=== PATIENT | female | born 1955 | race Caucasian/White ===

== ENCOUNTER → 2016-10-05 | Outpatient (CLI) | payer OTHER ==
--- NOTE | 2016-10-05 13:34 | KCIC ---
EXAM: Bilateral digital screening mammogram. HISTORY: 60-year-old female presents for screening mammography. COMPARISON: 09/29/2015 and 09/26/2014 11 TECHNIQUE: Full field digital craniocaudal and mediolateral oblique views of both breasts are obtained. Computer-aided detection is applied. FINDINGS: Breast parenchymal composition: Level B - Scattered fibroglandular densities. There is no new suspicious mass, calcification or architectural distortion within either breast. There are stable nodular densities within both breasts. There are few benign calcifications. IMPRESSION: BI-RADS Category 2: Benign findings. Annual mammography is recommended. This study was interpreted with the benefit of Computerized Aided Detection (CAD). Mammography is not 100% sensitive in detecting breast cancer. Therefore, a self breast exam and a clinical breast exam are very important. A negative mammogram does not negate a clinically suspicious finding and should not result in a delay in biopsying a clinically suspicious abnormality. The patient information was entered into the reminder system with a target for her next mammogram. Electronically signed by: Ariella Zimmer (Oct 05, 2016 13:31:28)
== END | disposition home or self-care (01) ==
LOC: KCIC MAMMO 12:25
PROVIDERS: ATTEND Internal Medicine
DX: Z12.31 Encounter for screening mammogram for malignant neoplasm of breast (principal)
CPT/HCPCS: G0202; 77067

== ENCOUNTER 2017-02-20 05:39 | Inpatient (IN) | payer OTHER ==
[2017-02-20] VITALS (13 sets, daily range): BP systolic 89–163; BP diastolic 24–75
[~2017-02-20] VITALS: Ht 157.5 cm; Wt 74.8 kg
[2017-02-20 06:41] LABS: BASO % 0 % (0-3); EOS % 0 % (0-3); HEMATOCRIT 41.2 % (36.0-47.0); HEMOGLOBIN 14.4 g/dL (12.0-15.5); LYMPH # 1.2 x10^3/uL (1.0-4.8); LYMPH % 12 % (24-48); MEAN CORPUSCULAR HEMOGLOBIN 32 pg (25-35); MEAN CORPUSCULAR HGB CONC 35 g/dL (31-37); MEAN CORPUSCULAR VOLUME 90 fL (79-100); MONO % 7 % (0-9); NEUT % 81 % (31-73); PLATELET COUNT 275 x10^3/uL (140-400); RED BLOOD COUNT 4.56 x10^6/uL (3.50-5.40); RED CELL DISTRIBUTION WIDTH 13.9 % (11.5-14.5); WHITE BLOOD COUNT 9.9 x10^3/uL (4.0-11.0)
[2017-02-20 06:52] LABS: CALCIUM 9.6 mg/dL (8.5-10.1); POTASSIUM 3.9 mmol/L (3.5-5.1)
[2017-02-20] MEDS ORDERED: ONDANSETRON PF 4 MG/2 ML VIAL. IV ONE (07:00)
[2017-02-20] MEDS ORDERED: PANTOPRAZOLE IV PUSH 40 MG VIAL. IVP ONE (07:00)
[2017-02-20] MEDS ORDERED: HYDROmorphone 2 MG/ML VIAL IV ONE (07:00)
[2017-02-20] MEDS ORDERED: IV NORMAL SALINE 1000ML BAG 1,000 ML IV ONE ×2 (07:00→08:30)
[2017-02-20 07:01] LABS: PROTHROMBIN TIME PATIENT 12.6 SEC (11.7-14.0)
--- NOTE | 2017-02-20 07:02 | PHYS DOC ---
Past Medical History Past Medical History: High Cholesterol Past Surgical History: No Surgical History Alcohol Use: None Drug Use: None Adult General Chief Complaint Chief Complaint: ABDOMINAL PAIN HPI HPI Patient is a 61 year old female presenting to the emergency department for evaluation of epigastric and right upper quadrant abdominal pain that started 2- 3 days ago and has persisted and worsened. Patient cannot describe the pain she says it is quite intense and is causing her nonbloody nonbilious emesis but no diarrhea. She does feel some constipation but no fevers chills dysuria hematuria. She denies any prior abdominal surgeries and she appears uncomfortable but is in no obvious distress. Review of Systems Review of Systems Constitutional: Denies fever or chills [] Eyes: Denies change in visual acuity, redness, or eye pain [] HENT: Denies nasal congestion or sore throat [] Respiratory: Denies cough or shortness of breath [] Cardiovascular: No additional information not addressed in HPI [] GI: + abdominal pain, nausea, vomiting. No bloody stools or diarrhea [] : Denies dysuria or hematuria [] Musculoskeletal: Denies back pain or joint pain [] Integument: Denies rash or skin lesions [] Neurologic: Denies headache, focal weakness or sensory changes [] Current Medications Current Medications Current Medications Medications (Trade) Dose Ordered Sig/Dante Start Time Stop Time Status Last Admin Dose Admin Fentanyl Citrate (Fentanyl 2ml Vial) 50 mcg PRN Q2HR PRN 02/20/17 08:15 02/21/17 08:14 Hydromorphone HCl (Dilaudid) 1 mg 1X ONCE 02/20/17 07:00 02/20/17 07:01 DC 02/20/17 06:45 1 MG Info (Do NOT chart on this entry -- for MONITORING) 1 each PRN DAILY PRN 02/20/17 07:30 02/22/17 07:29 Iohexol (Omnipaque 300 Mg/ml) 75 ml 1X ONCE 02/20/17 07:15 02/20/17 07:16 DC 02/20/17 07:24 75 ML Ondansetron HCl (Zofran) 4 mg PRN Q8HRS PRN 02/20/17 08:15 02/21/17 08:14 Pantoprazole Sodium (Protonix Vial) 40 mg 1X ONCE 02/20/17 07:00 02/20/17 07:01 DC 02/20/17 06:45 40 MG Piperacillin Sod/ Tazobactam Sod 3.375 gm/Sodium Chloride 50 ml @ 100 mls/hr 1X ONCE 02/20/17 08:30 02/20/17 08:59 Sodium Chloride 1,000 ml @ 100 mls/hr 1X ONCE 02/20/17 08:30 02/20/17 18:29 Allergies Allergies Allergies Coded Allergies Type Severity Reaction Last Updated Verified No Known Drug Allergies 02/20/17 No Physical Exam Physical Exam Constitutional: Well developed, well nourished, no acute distress, non-toxic appearance. [] HENT: Normocephalic, atraumatic, bilateral external ears normal, oropharynx moist, no oral exudates, nose normal. [] Eyes: PERRLA, EOMI, conjunctiva normal, no discharge. [] Neck: Normal range of motion, no tenderness, supple, no stridor. [] Cardiovascular:Heart rate regular rhythm, no murmur [] Lungs & Thorax: Bilateral breath sounds clear to auscultation [] Abdomen: Bowel sounds normal, soft, + epigastric tenderness, no rebound or guarding, no masses, no pulsatile masses. [] Skin: Warm, dry, no erythema, no rash. [] Back: No tenderness, no CVA tenderness. [] Extremities: No tenderness, no cyanosis, no clubbing, ROM intact, no edema. [] Neurologic: Alert and oriented X 3, normal motor function, normal sensory function, no focal deficits noted. [] Current Patient Data Vital Signs Vital Signs Date Time Temp Pulse Resp B/P (MAP) Pulse Ox O2 Delivery O2 Flow Rate FiO2 02/20/17 07:36 74 16 116/57 (76) 99 Room Air 02/20/17 06:23 98.2 98.2 Lab Values Laboratory Tests Test 02/20/17 06:09 White Blood Count 9.9 x10^3/uL (4.0-11.0) Red Blood Count 4.56 x10^6/uL (3.50-5.40) Hemoglobin 14.4 g/dL (12.0-15.5) Hematocrit 41.2 % (36.0-47.0) Mean Corpuscular Volume 90 fL (79-100) Mean Corpuscular Hemoglobin 32 pg (25-35) Mean Corpuscular Hemoglobin Concent 35 g/dL (31-37) Red Cell Distribution Width 13.9 % (11.5-14.5) Platelet Count 275 x10^3/uL (140-400) Neutrophils (%) (Auto) 81 % (31-73) H Lymphocytes (%) (Auto) 12 % (24-48) L Monocytes (%) (Auto) 7 % (0-9) Eosinophils (%) (Auto) 0 % (0-3) Basophils (%) (Auto) 0 % (0-3) Neutrophils # (Auto) 8.1 x10^3uL (1.8-7.7) H Lymphocytes # (Auto) 1.2 x10^3/uL (1.0-4.8) Monocytes # (Auto) 0.7 x10^3/uL (0.0-1.1) Eosinophils # (Auto) 0.0 x10^3/uL (0.0-0.7) Basophils # (Auto) 0.0 x10^3/uL (0.0-0.2) Prothrombin Time 12.6 SEC (11.7-14.0) Prothrombin Time INR 1.0 (0.8-1.1) PTT 28 SEC (24-38) Sodium Level 139 mmol/L (136-145) Potassium Level 3.9 mmol/L (3.5-5.1) Chloride Level 102 mmol/L (98-107) Carbon Dioxide Level 26 mmol/L (21-32) Anion Gap 11 (6-14) Blood Urea Nitrogen 17 mg/dL (7-20) Creatinine 1.0 mg/dL (0.6-1.0) Estimated GFR (Cockcroft-Gault) 56.0 BUN/Creatinine Ratio 17 (6-20) Glucose Level 161 mg/dL (70-99) H Calcium Level 9.6 mg/dL (8.5-10.1) Magnesium Level 2.1 mg/dL (1.8-2.4) Total Bilirubin 3.1 mg/dL (0.2-1.0) H Aspartate Amino Transferase (AST) 1123 U/L (15-37) H Alanine Aminotransferase (ALT) 880 U/L (14-59) H Alkaline Phosphatase 58 U/L (46-116) Creatine Kinase 162 U/L (26-192) Troponin I Quantitative < 0.017 ng/mL (0.000-0.055) YT-Wjh-A-Type Natriuretic Peptide 488 pg/mL (0-124) H Total Protein 7.8 g/dL (6.4-8.2) Albumin 3.7 g/dL (3.4-5.0) Albumin/Globulin Ratio 0.9 (1.0-1.7) L Lipase 120 U/L (73-393) Ethyl Alcohol Level < 10 mg/dL (0-10) Laboratory Tests 02/20/17 06:09 Laboratory Tests 02/20/17 06:09 EKG EKG [] Radiology/Procedures Radiology/Procedures EXAM: CT abdomen/pelvis with contrast. HISTORY: Abdominal pain. TECHNIQUE: Computed tomography of the abdomen and pelvis was performed after the intravenous administration of 60 mL Omnipaque 300. COMPARISON: None. FINDINGS: Lung windows through the visualized portions of the bases reveal mild atelectasis. Bone windows reveal no suspicious lesions. Central canal stenosis appears at least moderate at L4-5, where there is mild grade 1 anterolisthesis. The gallbladder is distended and demonstrates wall thickening. There is no radiopaque cholelithiasis. A 3 mm radiodensity within the distal common duct is concerning for choledocholithiasis. The common duct is mildly dilated at 8 mm more proximally. The liver, adrenal glands, kidneys and pancreas are unremarkable. There is a calcified granuloma in the spleen. There are no pathologically enlarged lymph nodes. Multiple dense object scattered throughout the colon suggests undigested pills. There is no obstruction. IMPRESSION: 1. Gallbladder wall thickening is concerning for acute cholecystitis in the absence of liver disease or volume overload. Sonography could further evaluate. 2. Suspect a 3 mm stone within the distal common duct. Mild biliary dilatation. 3. Grade 1 anterolisthesis at L4-5. There is moderate central canal stenosis at this level. *One or more of the following individualized dose reduction techniques were utilized for this examination: 1. Automated exposure control. 2. Adjustment of the mA and/or kV according to patient size. 3. Use of iterative reconstruction technique. DICTATED and SIGNED BY: RACHID GAMEZ MD DATE: 02/20/17 8642 Course & Med Decision Making Course & Med Decision Making Will check labs CT treat symptoms and reassess. Patient has cholecystitis and possibly choleducolithiasis on CT. I spoke to Dr. Hill of general surgery and he recommended admit with Zosyn for antibiotics and then consult GI as well. Patient admitted in stable condition. Dragon Disclaimer Dragon Disclaimer This electronic medical record was generated, in whole or in part, using a voice recognition dictation system. Departure Departure Impression: Primary Impression: Cholecystitis Additional Impressions: Choledocholithiasis Transaminitis Disposition: ADMITTED INPATIENT Admitting Physician: Jennie Collins Condition: STABLE Referrals: EDGAR OTT Jr, MD (PCP) Problem Qualifiers THONY PERRY DO Feb 20, 2017 07:02
[2017-02-20 07:03] LABS: ALBUMIN 3.7 g/dL (3.4-5.0); ALBUMIN/GLOBULIN RATIO 0.9 (1.0-1.7); MAGNESIUM 2.1 mg/dL (1.8-2.4); TOTAL BILIRUBIN 3.1 mg/dL (0.2-1.0); TOTAL PROTEIN 7.8 g/dL (6.4-8.2)
[2017-02-20] MEDS ORDERED: IOHEXOL 300 MG/ML 75 ML VIAL IV ONE (07:15)
[2017-02-20] MEDS ORDERED: CONTRAST GIVEN MC PRN (07:30)
--- NOTE | 2017-02-20 07:49 | RAD ---
EXAM: CT abdomen/pelvis with contrast. HISTORY: Abdominal pain. TECHNIQUE: Computed tomography of the abdomen and pelvis was performed after the intravenous administration of 60 mL Omnipaque 300. COMPARISON: None. FINDINGS: Lung windows through the visualized portions of the bases reveal mild atelectasis. Bone windows reveal no suspicious lesions. Central canal stenosis appears at least moderate at L4-5, where there is mild grade 1 anterolisthesis. The gallbladder is distended and demonstrates wall thickening. There is no radiopaque cholelithiasis. A 3 mm radiodensity within the distal common duct is concerning for choledocholithiasis. The common duct is mildly dilated at 8 mm more proximally. The liver, adrenal glands, kidneys and pancreas are unremarkable. There is a calcified granuloma in the spleen. There are no pathologically enlarged lymph nodes. Multiple dense object scattered throughout the colon suggests undigested pills. There is no obstruction. IMPRESSION: 1. Gallbladder wall thickening is concerning for acute cholecystitis in the absence of liver disease or volume overload. Sonography could further evaluate. 2. Suspect a 3 mm stone within the distal common duct. Mild biliary dilatation. 3. Grade 1 anterolisthesis at L4-5. There is moderate central canal stenosis at this level. *One or more of the following individualized dose reduction techniques were utilized for this examination: 1. Automated exposure control. 2. Adjustment of the mA and/or kV according to patient size. 3. Use of iterative reconstruction technique.
[2017-02-20] MEDS ORDERED: fentaNYL PF VIAL 100 MCG/2 ML VIAL IV PRN (08:15)
[2017-02-20] MEDS ORDERED: ONDANSETRON PF 4 MG/2 ML VIAL. IV PRN ×2 (08:15→15:30)
[2017-02-20] MEDS ORDERED: PIPERACILLIN/TAZOBACTAM 3.375 GM in IV NORMAL SALINE 50ML 50 ML IV ONE (08:30)
[2017-02-20] MEDS ORDERED: DEXAMETHASONE SOD PHOS 20 MG/5 ML VIAL. ONE (09:00)
[2017-02-20] MEDS ORDERED: ROCURONIUM 50 MG/5 ML VIAL. ONE (09:00)
[2017-02-20] MEDS ORDERED: GLYCOPYRROLATE 1 MG/5 ML VIAL. ONE (09:00)
--- NOTE | 2017-02-20 09:03 | ACF ---
Admit Criteria Forms Admit Criteria Forms Admit Criteria Forms ABDOMINAL PAIN Clinical Indications for Admission to Inpatient Care (Place 'X' for any and all applicable criteria): Admission is indicated for ANY ONE of the following(1)(2)(3)(4)(5): [X]I. Inpatient admission required rather than observation care (Also use Abdominal Pain: Observation Care, as appropriate) because of ANY ONE of the following: [ ]a) Severe pain requiring acute inpatient management [X]b) Identification of etiology/finding that requires inpatient care (eg, aortic dissection, free air) [ ]c) Absent bowel sounds with complete ileus(6) [ ]d) Suspected toxic megacolon [ ]e) Severe electrolyte abnormalities requiring inpatient care [ ]f) High fever or infection requiring inpatient admission as indicated by ANY ONE of following(7)(8): [ ] i) Appropriate outpatient or observational care antimicrobial treatment unavailable, not effective, or not feasible [ ] ii) Documented bacteremia [ ] iii) Temperature > 104.9 degrees F (oral) [ ] iv) T >103.1 F (oral) or < 96.8 F(rectal) that does not respond to all emergency treatment measures [ ]g) Signs of intestinal obstruction [B] [ ]h) Hemodynamic instability [ ]i) IV fluid to replace significant ongoing losses (greater than 3 L/m2 per day) (12)(13) [ ]j) Percutaneous or open drainage (eg, abscess, biliary tract ) procedures [ ]k) Parenteral nutrition regimen that must be implemented on inpatient basis [ ]l) Other condition,treatment or monitoring requiring inpatient admission. [ ]II. Peritoneal signs present [ ]III. Surgery needed that cannot be performed on an ambulatory basis. [ ]IV. Evaluation requires patient to not eat or drink for extended period ( eg, more than 24 hours). [ ]V. Contraindications and/or Inappropriate clinical situations for Observational Care in patients with abdominal pain, when ANY ONE of the following is required: [ ]a) Thorough evaluation is required to prevent catastrophic events due to delays in diagnosing (e.g.Mesenteric ischemia) 1,3 [ ]b) Patient with severe pathology or with chronic symptoms unlikely to improve in the ED stay (3) [ ]. General contraindications and/or Inappropriate clinical situations for Observational Care in patients with abdominal pain, when ANY ONE of the following is required: [ ]a) Prediction of prolongation of LOS based on ANY ONE of the following may be considered as a contraindication for observational care 2, 3, 4, 5, 6, 7, 8, 9, 10, 11 [ ]i) Age > 65 yrs. [ ]ii) Patient arriving by ambulance [ ]iii) Patient with high acuity [ ]iv) Patient requiring vital sign monitoring [ ]v) Patient on IV medication [ ]b) Systolic blood pressures 180mmHg 3,12 [ ]c) Patient with altered mental status including delirium and other alteration of consciousness, (3) [ ]d) Patient whose discharge disposition will be to a [facility] home or rehabilitation home should not be managed in Emergency Department Observation Unit. CMS rule requires 3 days hospital stay before such placement.3,13 [ ]e) Patient with failure to thrive due to broad array of etiologies 3,16,17 [ ]f) Inability to ambulate 3,14 Extended stay beyond goal length of stay may be needed for(2)(3): [ ]a) Persistent abdominal pain with suspected intra-abdominal process [ ]b) Diagnosed condition requiring continued stay (e.g., pancreatitis, complicated diverticulitis) [ ]c) Surgery (e.g., colectomy) The original [employer] content created by [employer] has been revised. The portions of the content which have been revised are identified through the use of italic text or in bold, and [employer] has neither reviewed nor approved the modified material.All other unmodified content is copyright [employer]. Please see references footnoted in the original [employer] edition 2016 NEHAL LEON Feb 20, 2017 09:03
--- NOTE | 2017-02-20 10:08 | PDOC2 ---
GI CONSULT Reason For Consult: Cholecystitis vs choledocholithiasis HPI: HPI: 61 y/o female admitted through ER. Epigastric and RUQ pain since Monday (02/18 ) after eating chicken gizzards. No previous pain like this, associated w/ some vomiting, no radiation to back. Significant labs: bili 3.1, AST 1123, ALT 880, normal Alk Phos and lipase. CT w/ gallbladder wall thickening, suspect 3mm stone in distal CBD w/ mild biliary dilatation. No reflux/heartburn, weight loss, diarrhea, hematemesis, hematochezia, melena. Occasional constipation. No previous EGD or colonoscopy. Has been taking Aleve QD for sciatic pain. PMH: PMH: HLD FH: Family History: No pertinent hx Social History: Smoke: No ALCOHOL: none Drugs: None ROS: GEN: Denies fevers, chills, sweats HEENT: Denies blurred vision, sore throat CV: Denies chest pain RESP: Denies shortness of air, cough GI: Per HPI : Denies hematuria, dysuria ENDO: Denies weight changes NEURO: Denies confusion, dizziness MSK: Denies weakness, joint pain/swelling SKIN: Denies jaundice, pruritus Vitals: Vitals: Vital Signs Date Time Temp Pulse Resp B/P (MAP) Pulse Ox O2 Delivery O2 Flow Rate FiO2 02/20/17 08:32 66 18 102/56 (71) 97 Room Air 02/20/17 06:23 98.2 98.2 Labs: Labs: Laboratory Tests Test 02/20/17 06:09 White Blood Count 9.9 x10^3/uL (4.0-11.0) Red Blood Count 4.56 x10^6/uL (3.50-5.40) Hemoglobin 14.4 g/dL (12.0-15.5) Hematocrit 41.2 % (36.0-47.0) Mean Corpuscular Volume 90 fL (79-100) Mean Corpuscular Hemoglobin 32 pg (25-35) Mean Corpuscular Hemoglobin Concent 35 g/dL (31-37) Red Cell Distribution Width 13.9 % (11.5-14.5) Platelet Count 275 x10^3/uL (140-400) Neutrophils (%) (Auto) 81 % (31-73) Lymphocytes (%) (Auto) 12 % (24-48) Monocytes (%) (Auto) 7 % (0-9) Eosinophils (%) (Auto) 0 % (0-3) Basophils (%) (Auto) 0 % (0-3) Neutrophils # (Auto) 8.1 x10^3uL (1.8-7.7) Lymphocytes # (Auto) 1.2 x10^3/uL (1.0-4.8) Monocytes # (Auto) 0.7 x10^3/uL (0.0-1.1) Eosinophils # (Auto) 0.0 x10^3/uL (0.0-0.7) Basophils # (Auto) 0.0 x10^3/uL (0.0-0.2) Prothrombin Time 12.6 SEC (11.7-14.0) Prothromb Time International Ratio 1.0 (0.8-1.1) Activated Partial Thromboplast Time 28 SEC (24-38) Sodium Level 139 mmol/L (136-145) Potassium Level 3.9 mmol/L (3.5-5.1) Chloride Level 102 mmol/L (98-107) Carbon Dioxide Level 26 mmol/L (21-32) Anion Gap 11 (6-14) Blood Urea Nitrogen 17 mg/dL (7-20) Creatinine 1.0 mg/dL (0.6-1.0) Estimated GFR (Cockcroft-Gault) 56.0 BUN/Creatinine Ratio 17 (6-20) Glucose Level 161 mg/dL (70-99) Calcium Level 9.6 mg/dL (8.5-10.1) Magnesium Level 2.1 mg/dL (1.8-2.4) Total Bilirubin 3.1 mg/dL (0.2-1.0) Aspartate Amino Transf (AST/SGOT) 1123 U/L (15-37) Alanine Aminotransferase (ALT/SGPT) 880 U/L (14-59) Alkaline Phosphatase 58 U/L (46-116) Creatine Kinase 162 U/L (26-192) Troponin I Quantitative < 0.017 ng/mL (0.000-0.055) [id number]-Type Natriuretic Peptide 488 pg/mL (0-124) Total Protein 7.8 g/dL (6.4-8.2) Albumin 3.7 g/dL (3.4-5.0) Albumin/Globulin Ratio 0.9 (1.0-1.7) Lipase 120 U/L (73-393) Ethyl Alcohol Level < 10 mg/dL (0-10) Allergies: Coded Allergies: No Known Drug Allergies (Unverified , 02/20/17) Medications: Current Medications Medications (Trade) Dose Ordered Sig/Dante Route PRN Reason Start Time Stop Time Status Last Admin Dose Admin Hydromorphone HCl (Dilaudid) 1 mg 1X ONCE IV 02/20/17 07:00 02/20/17 07:01 DC 02/20/17 06:45 Ondansetron HCl (Zofran) 8 mg 1X ONCE IV 02/20/17 07:00 02/20/17 07:01 DC 02/20/17 06:45 Sodium Chloride 1,000 ml @ 1,000 mls/hr 1X ONCE IV 02/20/17 07:00 02/20/17 07:59 DC 02/20/17 06:45 Pantoprazole Sodium (Protonix Vial) 40 mg 1X ONCE IVP 02/20/17 07:00 02/20/17 07:01 DC 02/20/17 06:45 Iohexol (Omnipaque 300 Mg/ml) 75 ml 1X ONCE IV 02/20/17 07:15 02/20/17 07:16 DC 02/20/17 07:24 Piperacillin Sod/ Tazobactam Sod 3.375 gm/Sodium Chloride 50 ml @ 100 mls/hr 1X ONCE IV 02/20/17 08:30 02/20/17 08:59 DC 02/20/17 08:30 Sodium Chloride 1,000 ml @ 100 mls/hr 1X ONCE IV 02/20/17 08:30 02/20/17 18:29 02/20/17 08:30 Imaging: Imaging: CT A/P w/ IV contrast IMPRESSION: 1. Gallbladder wall thickening is concerning for acute cholecystitis in the absence of liver disease or volume overload. Sonography could further evaluate. 2. Suspect a 3 mm stone within the distal common duct. Mild biliary dilatation. 3. Grade 1 anterolisthesis at L4-5. There is moderate central canal stenosis at this level. PE: GEN: NAD HEENT: Atraumatic, PERRL LUNGS: CTAB HEART: RRR ABD: +BS, S/ND, mostly epigastric discomfort, some RUQ EXTREMITY: No edema SKIN: No rashes, no jaundice NEURO/PSYCH: A & O 3 A/P: A/P: Upper abd pain, vomiting -onset 02/18/17 after eating chicken gizzards Elevated bili, transaminases -bili 3.1, AST 1123, ALT [address] A/P -GB wall thickening, suspect 3mm stone distal CBD, mild biliary dilatation CRC screen -no previous colonoscopy NSAID use -daily for sciatic pain -- ERCP tonight. CARMELO DUONG Feb 20, 2017 10:08
[2017-02-20] MEDS: PANTOPRAZOLE IV PUSH 40 MG VIAL. IVP SCH (11:31)
[2017-02-20] MEDS: IV NORMAL SALINE 1000ML BAG 1,000 ML IV SCH ×2 (12:11→22:30)
--- NOTE | 2017-02-20 15:23 | PDOC1 ---
History and Physical Date of Admission Date of Admission 02/20/17 Identification/Chief Complaint Chief Complaint abd pain Problems: Source Source: Chart review, Patient History of Present Illness History of Present Illness HPI HPI Patient is a 61 year old female presenting to the emergency department for evaluation of epigastric and right upper quadrant abdominal pain for 3 days. Pt said she ate some chicken gizzards on Sat, then started to have epigastric pain, 10/10. no radiating, has N./V, no bloody, nonbilious emesis, no diarrhea , chronic mild constipation. No fever, chills, no h/o gastric ulcer, or gallstone, but takes aleeve daily. CT showed acute choley and CBD stone 3 mm, high LFT. Past Medical History Past Medical History HLD Past Surgical History Past Surgical History: No pertinent history Family History Family History: No Significant Social History Smoke: No ALCOHOL: none Drugs: None Current Problem List Problem List Problems Medical Problems: (1) Choledocholithiasis Status: Acute (2) Transaminitis Status: Acute Current Medications Current Medications Current Medications Medications (Trade) Dose Ordered Sig/Dante Start Time Stop Time Status Last Admin Dose Admin Fentanyl Citrate (Fentanyl 2ml Vial) 50 mcg PRN Q2HR PRN 02/20/17 08:15 02/21/17 08:14 02/20/17 12:10 50 MCG Hydromorphone HCl (Dilaudid) 1 mg 1X ONCE 02/20/17 07:00 02/20/17 07:01 DC 02/20/17 06:45 1 MG Info (Do NOT chart on this entry -- for MONITORING) 1 each PRN DAILY PRN 02/20/17 07:30 02/22/17 07:29 Iohexol (Omnipaque 300 Mg/ml) 75 ml 1X ONCE 02/20/17 07:15 02/20/17 07:16 DC 02/20/17 07:24 75 ML Ondansetron HCl (Zofran) 4 mg PRN Q8HRS PRN 02/20/17 08:15 02/21/17 08:14 02/20/17 12:10 4 MG Pantoprazole Sodium (Protonix Vial) 40 mg DAILYAC 02/21/17 07:30 Piperacillin Sod/ Tazobactam Sod 3.375 gm/Sodium Chloride 50 ml @ 100 mls/hr 1X ONCE 02/20/17 08:30 02/20/17 08:59 DC 02/20/17 08:30 100 MLS/HR Sodium Chloride 1,000 ml @ 100 mls/hr Q10H 02/20/17 12:30 02/20/17 12:11 100 MLS/HR Allergies Allergies Allergies Coded Allergies Type Severity Reaction Last Updated Verified No Known Drug Allergies 02/20/17 No ROS Review of System CONSTITUTIONAL: No fever or chills EYES: No recent changes SKIN: No rash or itching CARDIOVASCULAR: No chest pain, syncope, palpitations, or edema RESPIRATORY: No SOB or cough GASTROINTESTINAL: No nausea, vomiting or abdominal pain NEUROLOGICAL: No headaches or weakness ENDOCRINE: No cold or heat intolerance GENITOURINARY: No urgency or frequency of urination MUSCULOSKELETAL: No back pain or joint pain LYMPHATICS: No enlarged lymph nodes PSYCHIATRIC: No anxiety or depression Physical Exam Physical Exam GEN.: No apparent distress. Alert and oriented. HEENT: Head is normocephalic, atraumatic NECK: Supple. LUNGS: Clear to auscultation. HEART: RRR, S1, S2 present. Peripheral pulses intact ABDOMEN: Soft, Positive bowel sounds. epigastric and RUQ moderate tenderness EXTREMITIES: Without any cyanosis. NEUROLOGIC: Normal speech, normal tone PSYCHIATRIC: Normal affect, normal mood. SKIN: No ulcerations Vitals Vitals Vital Signs Date Time Temp Pulse Resp B/P (MAP) Pulse Ox O2 Delivery O2 Flow Rate FiO2 02/20/17 12:10 Room Air 02/20/17 12:00 56 111/44 (66) 97 02/20/17 11:00 98.2 18 98.2 Labs Labs Laboratory Tests Test 02/20/17 06:09 White Blood Count 9.9 x10^3/uL (4.0-11.0) Red Blood Count 4.56 x10^6/uL (3.50-5.40) Hemoglobin 14.4 g/dL (12.0-15.5) Hematocrit 41.2 % (36.0-47.0) Mean Corpuscular Volume 90 fL (79-100) Mean Corpuscular Hemoglobin 32 pg (25-35) Mean Corpuscular Hemoglobin Concent 35 g/dL (31-37) Red Cell Distribution Width 13.9 % (11.5-14.5) Platelet Count 275 x10^3/uL (140-400) Neutrophils (%) (Auto) 81 % (31-73) Lymphocytes (%) (Auto) 12 % (24-48) Monocytes (%) (Auto) 7 % (0-9) Eosinophils (%) (Auto) 0 % (0-3) Basophils (%) (Auto) 0 % (0-3) Neutrophils # (Auto) 8.1 x10^3uL (1.8-7.7) Lymphocytes # (Auto) 1.2 x10^3/uL (1.0-4.8) Monocytes # (Auto) 0.7 x10^3/uL (0.0-1.1) Eosinophils # (Auto) 0.0 x10^3/uL (0.0-0.7) Basophils # (Auto) 0.0 x10^3/uL (0.0-0.2) Prothrombin Time 12.6 SEC (11.7-14.0) Prothromb Time International Ratio 1.0 (0.8-1.1) Activated Partial Thromboplast Time 28 SEC (24-38) Sodium Level 139 mmol/L (136-145) Potassium Level 3.9 mmol/L (3.5-5.1) Chloride Level 102 mmol/L (98-107) Carbon Dioxide Level 26 mmol/L (21-32) Anion Gap 11 (6-14) Blood Urea Nitrogen 17 mg/dL (7-20) Creatinine 1.0 mg/dL (0.6-1.0) Estimated GFR (Cockcroft-Gault) 56.0 BUN/Creatinine Ratio 17 (6-20) Glucose Level 161 mg/dL (70-99) Calcium Level 9.6 mg/dL (8.5-10.1) Magnesium Level 2.1 mg/dL (1.8-2.4) Total Bilirubin 3.1 mg/dL (0.2-1.0) Aspartate Amino Transf (AST/SGOT) 1123 U/L (15-37) Alanine Aminotransferase (ALT/SGPT) 880 U/L (14-59) Alkaline Phosphatase 58 U/L (46-116) Creatine Kinase 162 U/L (26-192) Troponin I Quantitative < 0.017 ng/mL (0.000-0.055) TB-Qkl-G-Type Natriuretic Peptide 488 pg/mL (0-124) Total Protein 7.8 g/dL (6.4-8.2) Albumin 3.7 g/dL (3.4-5.0) Albumin/Globulin Ratio 0.9 (1.0-1.7) Lipase 120 U/L (73-393) Ethyl Alcohol Level < 10 mg/dL (0-10) Laboratory Tests Test 02/20/17 06:09 White Blood Count 9.9 x10^3/uL (4.0-11.0) Red Blood Count 4.56 x10^6/uL (3.50-5.40) Hemoglobin 14.4 g/dL (12.0-15.5) Hematocrit 41.2 % (36.0-47.0) Mean Corpuscular Volume 90 fL (79-100) Mean Corpuscular Hemoglobin 32 pg (25-35) Mean Corpuscular Hemoglobin Concent 35 g/dL (31-37) Red Cell Distribution Width 13.9 % (11.5-14.5) Platelet Count 275 x10^3/uL (140-400) Neutrophils (%) (Auto) 81 % (31-73) Lymphocytes (%) (Auto) 12 % (24-48) Monocytes (%) (Auto) 7 % (0-9) Eosinophils (%) (Auto) 0 % (0-3) Basophils (%) (Auto) 0 % (0-3) Neutrophils # (Auto) 8.1 x10^3uL (1.8-7.7) Lymphocytes # (Auto) 1.2 x10^3/uL (1.0-4.8) Monocytes # (Auto) 0.7 x10^3/uL (0.0-1.1) Eosinophils # (Auto) 0.0 x10^3/uL (0.0-0.7) Basophils # (Auto) 0.0 x10^3/uL (0.0-0.2) Prothrombin Time 12.6 SEC (11.7-14.0) Prothromb Time International Ratio 1.0 (0.8-1.1) Activated Partial Thromboplast Time 28 SEC (24-38) Sodium Level 139 mmol/L (136-145) Potassium Level 3.9 mmol/L (3.5-5.1) Chloride Level 102 mmol/L (98-107) Carbon Dioxide Level 26 mmol/L (21-32) Anion Gap 11 (6-14) Blood Urea Nitrogen 17 mg/dL (7-20) Creatinine 1.0 mg/dL (0.6-1.0) Estimated GFR (Cockcroft-Gault) 56.0 BUN/Creatinine Ratio 17 (6-20) Glucose Level 161 mg/dL (70-99) Calcium Level 9.6 mg/dL (8.5-10.1) Magnesium Level 2.1 mg/dL (1.8-2.4) Total Bilirubin 3.1 mg/dL (0.2-1.0) Aspartate Amino Transf (AST/SGOT) 1123 U/L (15-37) Alanine Aminotransferase (ALT/SGPT) 880 U/L (14-59) Alkaline Phosphatase 58 U/L (46-116) Creatine Kinase 162 U/L (26-192) Troponin I Quantitative < 0.017 ng/mL (0.000-0.055) RK-Qss-U-Type Natriuretic Peptide 488 pg/mL (0-124) Total Protein 7.8 g/dL (6.4-8.2) Albumin 3.7 g/dL (3.4-5.0) Albumin/Globulin Ratio 0.9 (1.0-1.7) Lipase 120 U/L (73-393) Ethyl Alcohol Level < 10 mg/dL (0-10) VTE Prophylaxis Ordered VTE Prophylaxis Devices: Yes VTE Pharmacological Prophylaxi: No Assessment/Plan Assessment/Plan 1. abd pain with acute cholecystitis 2. cholelithiasis 3. elevated transaminitis 4. HLD 5. overweight plan: GI, sx consult ERCP tonight as per GI npo ivf pain control gi ppx labs tmr ALICIA TORRES MD Feb 20, 2017 15:23
[2017-02-20] MEDS ORDERED: DOCUSATE SODIUM 100 MG CAPSULE. PO PRN (15:30)
[2017-02-20] MEDS ORDERED: hydrALAZINE 20 MG/ML VIAL. IVP PRN (15:30)
[2017-02-20] MEDS ORDERED: IOHEXOL 300 MG/ML 50 ML VIAL. ONE (16:31)
--- NOTE | 2017-02-20 17:01 | PDOC2 ---
CONSULT Date of Consult Date of Consult DATE: 02/20/17 TIME: 17:00 Past Surgical History Past Surgical History: No pertinent history Family History Family History: No Significant Social History No ALCOHOL: none Drugs: None Current Problem List Problem List Problems Medical Problems: (1) Choledocholithiasis Status: Acute (2) Transaminitis Status: Acute Current Medications Current Medications Current Medications Hydromorphone HCl (Dilaudid) 1 mg 1X ONCE IV Last administered on 02/20/17 06 :45; Start 02/20/17 at 07:00; Stop 02/20/17 at 07:01; Status DC Ondansetron HCl (Zofran) 8 mg 1X ONCE IV Last administered on 02/20/17 06:45 ; Start 02/20/17 at 07:00; Stop 02/20/17 at 07:01; Status DC Sodium Chloride 1,000 ml @ 1,000 mls/hr 1X ONCE IV Last administered on 06:45; Start 02/20/17 at 07:00; Stop 02/20/17 at 07:59; Status DC Pantoprazole Sodium (Protonix Vial) 40 mg 1X ONCE IVP Last administered on 06:45; Start 02/20/17 at 07:00; Stop 02/20/17 at 07:01; Status DC Iohexol (Omnipaque 300 Mg/ml) 75 ml 1X ONCE IV Last administered on 02/20/17 07:24; Start 02/20/17 at 07:15; Stop 02/20/17 at 07:16; Status DC Info (Do NOT chart on this entry -- for MONITORING) 1 each PRN DAILY PRN MC SEE COMMENTS; Start 02/20/17 at 07:30; Stop 02/22/17 at 07:29 Ondansetron HCl (Zofran) 4 mg PRN Q8HRS PRN IV NAUSEA/VOMITING Last administered on 02/20/17 12:10; Start 02/20/17 at 08:15; Stop 02/21/17 at 08:14 Fentanyl Citrate (Fentanyl 2ml Vial) 50 mcg PRN Q2HR PRN IV PAIN Last administered on 02/20/17 12:10; Start 02/20/17 at 08:15; Stop 02/21/17 at 08:14 Piperacillin Sod/ Tazobactam Sod 3.375 gm/Sodium Chloride 50 ml @ 100 mls/hr 1X ONCE IV Last administered on 02/20/17 08:30; Start 02/20/17 at 08:30; Stop 02/20/17 at 08:59; Status DC Sodium Chloride 1,000 ml @ 100 mls/hr 1X ONCE IV Last administered on 08:30; Start 02/20/17 at 08:30; Stop 02/20/17 at 18:29 Pantoprazole Sodium (Protonix Vial) 40 mg DAILYAC IVP ; Start 02/21/17 at 07:30 Sodium Chloride 1,000 ml @ 100 mls/hr Q10H IV Last administered on 02/20/17 12:11; Start 02/20/17 at 12:30 Acetaminophen (Tylenol) 650 mg PRN Q6HRS PRN PO FEVER; Start 02/20/17 at 15:30 Ondansetron HCl (Zofran) 4 mg PRN Q6HRS PRN IV NAUSEA/VOMITING; Start 02/20/17 at 15:30 Morphine Sulfate 2 mg PRN Q2HR PRN IV PAIN; Start 02/20/17 at 15:30 Tramadol HCl (Ultram) 50 mg PRN Q6HRS PRN PO PAIN; Start 02/20/17 at 15:30 Hydralazine HCl (Apresoline) 10 mg PRN Q4HRS PRN IVP ELEVATED BP, SEE COMMENTS ; Start 02/20/17 at 15:30 Docusate Sodium (Colace) 100 mg PRN DAILY PRN PO CONSTIPATION; Start 02/20/17 at 15:30 Iohexol (Omnipaque 300 Mg/ml) 50 ml STK-MED ONCE .ROUTE ; Start 02/20/17 at 16: 31; Stop 02/20/17 at 16:32; Status DC Allergies Allergies: Coded Allergies: No Known Drug Allergies (Unverified , 02/20/17) Vitals VITALS Vital Signs Date Time Temp Pulse Resp B/P (MAP) Pulse Ox O2 Delivery O2 Flow Rate FiO2 02/20/17 16:47 97.9 58 18 100 97.9 02/20/17 15:00 96/48 (64) Room Air Labs Labs Laboratory Tests Test 02/20/17 06:09 White Blood Count 9.9 x10^3/uL (4.0-11.0) Red Blood Count 4.56 x10^6/uL (3.50-5.40) Hemoglobin 14.4 g/dL (12.0-15.5) Hematocrit 41.2 % (36.0-47.0) Mean Corpuscular Volume 90 fL (79-100) Mean Corpuscular Hemoglobin 32 pg (25-35) Mean Corpuscular Hemoglobin Concent 35 g/dL (31-37) Red Cell Distribution Width 13.9 % (11.5-14.5) Platelet Count 275 x10^3/uL (140-400) Neutrophils (%) (Auto) 81 % (31-73) Lymphocytes (%) (Auto) 12 % (24-48) Monocytes (%) (Auto) 7 % (0-9) Eosinophils (%) (Auto) 0 % (0-3) Basophils (%) (Auto) 0 % (0-3) Neutrophils # (Auto) 8.1 x10^3uL (1.8-7.7) Lymphocytes # (Auto) 1.2 x10^3/uL (1.0-4.8) Monocytes # (Auto) 0.7 x10^3/uL (0.0-1.1) Eosinophils # (Auto) 0.0 x10^3/uL (0.0-0.7) Basophils # (Auto) 0.0 x10^3/uL (0.0-0.2) Prothrombin Time 12.6 SEC (11.7-14.0) Prothromb Time International Ratio 1.0 (0.8-1.1) Activated Partial Thromboplast Time 28 SEC (24-38) Sodium Level 139 mmol/L (136-145) Potassium Level 3.9 mmol/L (3.5-5.1) Chloride Level 102 mmol/L (98-107) Carbon Dioxide Level 26 mmol/L (21-32) Anion Gap 11 (6-14) Blood Urea Nitrogen 17 mg/dL (7-20) Creatinine 1.0 mg/dL (0.6-1.0) Estimated GFR (Cockcroft-Gault) 56.0 BUN/Creatinine Ratio 17 (6-20) Glucose Level 161 mg/dL (70-99) Calcium Level 9.6 mg/dL (8.5-10.1) Magnesium Level 2.1 mg/dL (1.8-2.4) Total Bilirubin 3.1 mg/dL (0.2-1.0) Aspartate Amino Transf (AST/SGOT) 1123 U/L (15-37) Alanine Aminotransferase (ALT/SGPT) 880 U/L (14-59) Alkaline Phosphatase 58 U/L (46-116) Creatine Kinase 162 U/L (26-192) Troponin I Quantitative < 0.017 ng/mL (0.000-0.055) HO-Iiz-H-Type Natriuretic Peptide 488 pg/mL (0-124) Total Protein 7.8 g/dL (6.4-8.2) Albumin 3.7 g/dL (3.4-5.0) Albumin/Globulin Ratio 0.9 (1.0-1.7) Lipase 120 U/L (73-393) Ethyl Alcohol Level < 10 mg/dL (0-10) Laboratory Tests Test 02/20/17 06:09 White Blood Count 9.9 x10^3/uL (4.0-11.0) Red Blood Count 4.56 x10^6/uL (3.50-5.40) Hemoglobin 14.4 g/dL (12.0-15.5) Hematocrit 41.2 % (36.0-47.0) Mean Corpuscular Volume 90 fL (79-100) Mean Corpuscular Hemoglobin 32 pg (25-35) Mean Corpuscular Hemoglobin Concent 35 g/dL (31-37) Red Cell Distribution Width 13.9 % (11.5-14.5) Platelet Count 275 x10^3/uL (140-400) Neutrophils (%) (Auto) 81 % (31-73) Lymphocytes (%) (Auto) 12 % (24-48) Monocytes (%) (Auto) 7 % (0-9) Eosinophils (%) (Auto) 0 % (0-3) Basophils (%) (Auto) 0 % (0-3) Neutrophils # (Auto) 8.1 x10^3uL (1.8-7.7) Lymphocytes # (Auto) 1.2 x10^3/uL (1.0-4.8) Monocytes # (Auto) 0.7 x10^3/uL (0.0-1.1) Eosinophils # (Auto) 0.0 x10^3/uL (0.0-0.7) Basophils # (Auto) 0.0 x10^3/uL (0.0-0.2) Prothrombin Time 12.6 SEC (11.7-14.0) Prothromb Time International Ratio 1.0 (0.8-1.1) Activated Partial Thromboplast Time 28 SEC (24-38) Sodium Level 139 mmol/L (136-145) Potassium Level 3.9 mmol/L (3.5-5.1) Chloride Level 102 mmol/L (98-107) Carbon Dioxide Level 26 mmol/L (21-32) Anion Gap 11 (6-14) Blood Urea Nitrogen 17 mg/dL (7-20) Creatinine 1.0 mg/dL (0.6-1.0) Estimated GFR (Cockcroft-Gault) 56.0 BUN/Creatinine Ratio 17 (6-20) Glucose Level 161 mg/dL (70-99) Calcium Level 9.6 mg/dL (8.5-10.1) Magnesium Level 2.1 mg/dL (1.8-2.4) Total Bilirubin 3.1 mg/dL (0.2-1.0) Aspartate Amino Transf (AST/SGOT) 1123 U/L (15-37) Alanine Aminotransferase (ALT/SGPT) 880 U/L (14-59) Alkaline Phosphatase 58 U/L (46-116) Creatine Kinase 162 U/L (26-192) Troponin I Quantitative < 0.017 ng/mL (0.000-0.055) OG-Pgr-V-Type Natriuretic Peptide 488 pg/mL (0-124) Total Protein 7.8 g/dL (6.4-8.2) Albumin 3.7 g/dL (3.4-5.0) Albumin/Globulin Ratio 0.9 (1.0-1.7) Lipase 120 U/L (73-393) Ethyl Alcohol Level < 10 mg/dL (0-10) Assessment/Plan Assessment/Plan went by to see pt she was out of her room for the ERCP will follow up on those results and see in the AM Thanks for consult EMIL WOOD MD Feb 20, 2017 17:01
--- NOTE | 2017-02-20 18:14 | PDOC4 ---
Operative Note Operative Note ERCP with sphincterotomy Janice GAMA Pre-op dx jaundice/retained CBD stone on Ct scan Post-op dx microlithiasis S/p sphincterotomy with normal CBD duct/occluded cystic duct consistent with acute cholecystitis non-visualized pancreatic duct Plan lfts/amylase/lipase in am lap maribeth if without post-ercp complication tomorrow. Full note dictated VARGAS MORE MD Feb 20, 2017 18:13
[2017-02-20] MEDS ORDERED: GLUCAGON,HUMAN RECOMBINANT 1 MG/ML VIAL. ONE (18:43)
[2017-02-20] MEDS: traMADol 50 MG TABLET PO PRN (19:43)
[2017-02-20] MEDS: ACETAMINOPHEN 325 MG TABLET. PO PRN (19:43)
--- NOTE | 2017-02-20 23:56 | OP ---
DATE OF SURGERY: 02/20/2017 PROCEDURE PERFORMED: Endoscopic retrograde cholangiopancreatography with sphincterotomy and balloon sweep. PREOPERATIVE DIAGNOSES: Choledocholithiasis and jaundice. POSTOPERATIVE DIAGNOSES: Normal common bile duct with possible microlithiasis status post endoscopic sphincterotomy and balloon sweep. DESCRIPTION OF PROCEDURE: The risks and benefits of procedure including risk of perforation were discussed. Pancreatitis was discussed with the patient. Informed consent was obtained. The patient was then intubated and placed in a prone position anesthesia. Side-viewing endoscope was advanced through esophagus, stomach, and first and second portions of duodenum. Major papilla was then identified. It was cannulated with a taper-tipped cannula - wire, possible filling defect was noted distally. Subsequent sphincterotomy was elected to be performed, which was approximately cm in length. No bleeding and/or complications noted at that time. A balloon sweep was then performed with possible microlithiasis being passed. No obvious stones were visualized. No retained filling defects noted at the end of the cholangiogram. The patient tolerated the procedure well without immediate complications. DISPOSITION: She will be observed overnight and if there are no further complications of pancreatitis from the ERCP, then laparoscopic cholecystectomy would be pursued tomorrow. I would like to thank Dr. Collins and Dr. Hill for allowing us to consult and participate in the patient's care. VARGAS MORE MD DR: VANNA/robi JOB#: [id number] / [id number] EMIL Hankins MD, CHUNMEI MD
[2017-02-21] VITALS (10 sets, daily range): BP systolic 98–131; BP diastolic 53–73
[2017-02-21 05:53] LABS: BASO % 0 % (0-3); EOS % 0 % (0-3); HEMATOCRIT 34.7 % (36.0-47.0); HEMOGLOBIN 11.5 g/dL (12.0-15.5); LYMPH # 0.9 x10^3/uL (1.0-4.8); LYMPH % 13 % (24-48); MEAN CORPUSCULAR HEMOGLOBIN 31 pg (25-35); MEAN CORPUSCULAR HGB CONC 33 g/dL (31-37); MEAN CORPUSCULAR VOLUME 94 fL (79-100); MONO % 6 % (0-9); NEUT % 81 % (31-73); PLATELET COUNT 179 x10^3/uL (140-400); RED BLOOD COUNT 3.68 x10^6/uL (3.50-5.40); RED CELL DISTRIBUTION WIDTH 14.4 % (11.5-14.5)
[2017-02-21 06:22] LABS: ALBUMIN/GLOBULIN RATIO 1.1 (1.0-1.7); CALCIUM 8.1 mg/dL (8.5-10.1); CREATININE 0.8 mg/dL (0.6-1.0); DIRECT BILIRUBIN 2.9 mg/dL (0.0-0.2); GFR 72.4; POTASSIUM 3.8 mmol/L (3.5-5.1); TOTAL BILIRUBIN 3.6 mg/dL (0.2-1.0); TOTAL PROTEIN 5.8 g/dL (6.4-8.2)
--- NOTE | 2017-02-21 08:09 | RAD ---
EXAM: ERCP. HISTORY: Choledocholithiasis. COMPARISON: None. FINDINGS: 5 fluoroscopic images were obtained intraoperatively during ERCP. Fluoroscopy time 1 minute 40 seconds. These demonstrate cannulation of the common duct and injection of contrast. There is either spasm or filling defect within the distal common duct. Later images demonstrate balloon sweep. IMPRESSION: 1. Common duct balloon sweep. Refer to the operative report for full detail.
[2017-02-21] MEDS: IV NORMAL SALINE 1000ML BAG 1,000 ML IV SCH ×2 (08:30→18:30)
[2017-02-21] MEDS: ACETAMINOPHEN 325 MG TABLET. PO PRN (08:33)
[2017-02-21] MEDS: PANTOPRAZOLE IV PUSH 40 MG VIAL. IVP SCH (08:34)
[2017-02-21] MEDS: traMADol 50 MG TABLET PO PRN ×2 (08:34→20:51)
--- NOTE | 2017-02-21 11:43 | PDOC ---
Provider Note Provider Note SURG reviewed US with radiologist abnormal GB with concerns for mucosal sluff advised cholecystectomy she will proceed. EMIL WOOD MD Feb 21, 2017 11:43
--- NOTE | 2017-02-21 11:45 | RAD ---
EXAM: Right upper quadrant ultrasound. HISTORY: Right upper quadrant pain. COMPARISON: 02/20/2017. FINDINGS: Sonographic evaluation of the right upper quadrant was performed. The liver appears normal in parenchymal echotexture. There are no focal lesions. The gallbladder demonstrates wall thickening at 6 mm. A component of mucosal sloughing is suspected. No stones are seen. There is no sonographic Malik sign. The common duct measures 7 mm. No clear choledocholithiasis is seen. The visualized portions of the head and body of the pancreas reveal no abnormality. The right kidney measures 10.5 cm. Cortical thickness and echogenicity are preserved. There is no hydronephrosis. The visualized portions of the abdominal aorta and inferior vena cava are grossly patent and normal in caliber. IMPRESSION: 1. Gallbladder wall thickening with evidence of mucosal sloughing suggests gangrenous cholecystitis. However, there is no sonographic Malik sign or cholelithiasis. Correlate for evidence of infection to assess for acalculus cholecystitis rather than liver disease or volume overload as alternative causes of gallbladder wall thickening.
[2017-02-21] MEDS ORDERED: PIPERACILLIN/TAZOBACTAM 3.375 GM in IV NORMAL SALINE 50ML 50 ML IV ONE (12:00)
[2017-02-21] MEDS ORDERED: IV RINGERS,LACTATED 1000ML 1,000 ML IV SCH (12:06)
[2017-02-21] MEDS ORDERED: PROPOFOL 20 ML IV ONE (12:13)
[2017-02-21] MEDS ORDERED: LIDOCAINE 2% PF Vial for OR 5 ML VIAL. ONE (12:13)
[2017-02-21] MEDS ORDERED: fentaNYL PF VIAL 100 MCG/2 ML VIAL ONE ×2 (12:13→14:08)
[2017-02-21] MEDS ORDERED: SUCCINYLCHOLINE 200 MG/10 ML VIAL. ONE (12:14)
[2017-02-21] MEDS ORDERED: ROCURONIUM 50 MG/5 ML VIAL. ONE (12:14)
[2017-02-21] MEDS ORDERED: ONDANSETRON PF 4 MG/2 ML VIAL. IV PRN (12:15)
[2017-02-21] MEDS ORDERED: LIDOCAINE 1% 1 ML SYRINGE. ID PRN (12:15)
[2017-02-21] MEDS ORDERED: PROCHLORPERAZINE 10 MG/2 ML VIAL. IV PRN (12:15)
[2017-02-21] MEDS ORDERED: fentaNYL PF VIAL 100 MCG/2 ML VIAL IV PRN (12:15)
[2017-02-21] MEDS ORDERED: SURGICEL HEMOSTAT 4X8 EACH. ONE (12:28)
[2017-02-21] MEDS ORDERED: GLUCAGON,HUMAN RECOMBINANT 1 MG/ML VIAL. ONE (12:28)
[2017-02-21] MEDS ORDERED: BUPIVAC MPF-EPI 0.5%-1:200000 30 ML VIAL. ONE (12:28)
[2017-02-21] MEDS ORDERED: IOHEXOL 300 MG/ML 50 ML VIAL. ONE (12:28)
--- NOTE | 2017-02-21 12:31 | PDOC ---
Subjective: Subjective: Feeling better, no pain today. Objective: Objective: Per RN - surgery today. Vital Signs: Vital Signs Date Time Temp Pulse Resp B/P (MAP) Pulse Ox O2 Delivery O2 Flow Rate FiO2 02/21/17 11:00 98.2 71 18 125/53 (77) 97 Room Air 98.2 02/20/17 18:24 5 Labs: Laboratory Tests Test 02/21/17 04:40 White Blood Count 7.0 x10^3/uL Red Blood Count 3.68 x10^6/uL Hemoglobin 11.5 g/dL Hematocrit 34.7 % Mean Corpuscular Volume 94 fL Mean Corpuscular Hemoglobin 31 pg Mean Corpuscular Hemoglobin Concent 33 g/dL Red Cell Distribution Width 14.4 % Platelet Count 179 x10^3/uL Neutrophils (%) (Auto) 81 % Lymphocytes (%) (Auto) 13 % Monocytes (%) (Auto) 6 % Eosinophils (%) (Auto) 0 % Basophils (%) (Auto) 0 % Neutrophils # (Auto) 5.7 x10^3uL Lymphocytes # (Auto) 0.9 x10^3/uL Monocytes # (Auto) 0.4 x10^3/uL Eosinophils # (Auto) 0.0 x10^3/uL Basophils # (Auto) 0.0 x10^3/uL Sodium Level 143 mmol/L Potassium Level 3.8 mmol/L Chloride Level 108 mmol/L Carbon Dioxide Level 24 mmol/L Anion Gap 11 Blood Urea Nitrogen 16 mg/dL Creatinine 0.8 mg/dL Estimated GFR (Cockcroft-Gault) 72.4 BUN/Creatinine Ratio 20 Glucose Level 109 mg/dL Calcium Level 8.1 mg/dL Total Bilirubin 3.6 mg/dL Direct Bilirubin 2.9 mg/dL Aspartate Amino Transf (AST/SGOT) 477 U/L Alanine Aminotransferase (ALT/SGPT) 698 U/L Alkaline Phosphatase 62 U/L Total Protein 5.8 g/dL Albumin 3.0 g/dL Albumin/Globulin Ratio 1.1 Amylase Level 38 U/L Lipase 71 U/L Imaging: ERCP 02/20/17: microlithiasis s/p sphincterotomy with normal CBD duct/occluded cystic duct c/w acute cholecystitis, non-visualized pancreatic duct RUQ US 02/21/17 IMPRESSION: 1. Gallbladder wall thickening with evidence of mucosal sloughing suggests gangrenous cholecystitis. However, there is no sonographic Malik sign or cholelithiasis. Correlate for evidence of infection to assess for acalculus cholecystitis rather than liver disease or volume overload as alternative causes of gallbladder wall thickening. PE: GEN: NAD LUNGS: CTAB HEART: RRR ABD: NABS, S/ND/NT NEURO/PSYCH: A & O 3 A/P: Upper abd pain, vomiting - resolved -abnormal LFTs: transaminases better today, bili still elevated (3.6), lipase still WNL -abnormal CT w/ GB wall thickening, possible CBD stone -s/p ERCP 02/20: microlithiasis s/p sphincterotomy, normal CBD duct, occluded cystic duct, non-visualized pancreatic duct -US as above -- Plans for cholecystectomy today, will follow. CARMELO DUONG Feb 21, 2017 12:31
--- NOTE | 2017-02-21 12:39 | PDOC ---
PROGRESS NOTES Chief Complaint Chief Complaint 1. abd pain with acute cholecystitis 2. cholelithiasis s/p ERCP with sphincterectomy 3. elevated transaminitis 4. HLD 5. overweight plan: GI, sx consulted ERCP 02/20, lap maribeth today npo ivf pain control gi ppx labs tmr History of Present Illness History of Present Illness pain better LFT better except bili still high Vitals Vitals Vital Signs Date Time Temp Pulse Resp B/P (MAP) Pulse Ox O2 Delivery O2 Flow Rate FiO2 02/21/17 11:00 98.2 71 18 125/53 (77) 97 Room Air 98.2 02/20/17 18:24 5 Physical Exam General: Alert, Oriented X3, Cooperative Heart: Regular rate, Normal S1, Normal S2 Lungs: Clear, Wheezing Abdomen: Normal bowel sounds, Soft, Other (RUQ mild tenderness) Extremities: No clubbing, No cyanosis Labs LABS Laboratory Tests Test 02/21/17 04:40 White Blood Count 7.0 x10^3/uL (4.0-11.0) Red Blood Count 3.68 x10^6/uL (3.50-5.40) Hemoglobin 11.5 g/dL (12.0-15.5) Hematocrit 34.7 % (36.0-47.0) Mean Corpuscular Volume 94 fL (79-100) Mean Corpuscular Hemoglobin 31 pg (25-35) Mean Corpuscular Hemoglobin Concent 33 g/dL (31-37) Red Cell Distribution Width 14.4 % (11.5-14.5) Platelet Count 179 x10^3/uL (140-400) Neutrophils (%) (Auto) 81 % (31-73) Lymphocytes (%) (Auto) 13 % (24-48) Monocytes (%) (Auto) 6 % (0-9) Eosinophils (%) (Auto) 0 % (0-3) Basophils (%) (Auto) 0 % (0-3) Neutrophils # (Auto) 5.7 x10^3uL (1.8-7.7) Lymphocytes # (Auto) 0.9 x10^3/uL (1.0-4.8) Monocytes # (Auto) 0.4 x10^3/uL (0.0-1.1) Eosinophils # (Auto) 0.0 x10^3/uL (0.0-0.7) Basophils # (Auto) 0.0 x10^3/uL (0.0-0.2) Sodium Level 143 mmol/L (136-145) Potassium Level 3.8 mmol/L (3.5-5.1) Chloride Level 108 mmol/L (98-107) Carbon Dioxide Level 24 mmol/L (21-32) Anion Gap 11 (6-14) Blood Urea Nitrogen 16 mg/dL (7-20) Creatinine 0.8 mg/dL (0.6-1.0) Estimated GFR (Cockcroft-Gault) 72.4 BUN/Creatinine Ratio 20 (6-20) Glucose Level 109 mg/dL (70-99) Calcium Level 8.1 mg/dL (8.5-10.1) Total Bilirubin 3.6 mg/dL (0.2-1.0) Direct Bilirubin 2.9 mg/dL (0.0-0.2) Aspartate Amino Transf (AST/SGOT) 477 U/L (15-37) Alanine Aminotransferase (ALT/SGPT) 698 U/L (14-59) Alkaline Phosphatase 62 U/L (46-116) Total Protein 5.8 g/dL (6.4-8.2) Albumin 3.0 g/dL (3.4-5.0) Albumin/Globulin Ratio 1.1 (1.0-1.7) Amylase Level 38 U/L (25-115) Lipase 71 U/L (73-393) Review of Systems Review of Systems no fever, chills, sob or chest pain Assessment and Plan Assessmemt and Plan Problems Medical Problems: (1) Choledocholithiasis Status: Acute (2) Transaminitis Status: Acute Problems: Comment Review of Relevant I have reviewed the following items poli (where applicable) has been applied. Labs Laboratory Tests Test 02/20/17 06:09 02/21/17 04:40 White Blood Count 9.9 x10^3/uL (4.0-11.0) 7.0 x10^3/uL (4.0-11.0) Red Blood Count 4.56 x10^6/uL (3.50-5.40) 3.68 x10^6/uL (3.50-5.40) Hemoglobin 14.4 g/dL (12.0-15.5) 11.5 g/dL (12.0-15.5) Hematocrit 41.2 % (36.0-47.0) 34.7 % (36.0-47.0) Mean Corpuscular Volume 90 fL (79-100) 94 fL (79-100) Mean Corpuscular Hemoglobin 32 pg (25-35) 31 pg (25-35) Mean Corpuscular Hemoglobin Concent 35 g/dL (31-37) 33 g/dL (31-37) Red Cell Distribution Width 13.9 % (11.5-14.5) 14.4 % (11.5-14.5) Platelet Count 275 x10^3/uL (140-400) 179 x10^3/uL (140-400) Neutrophils (%) (Auto) 81 % (31-73) 81 % (31-73) Lymphocytes (%) (Auto) 12 % (24-48) 13 % (24-48) Monocytes (%) (Auto) 7 % (0-9) 6 % (0-9) Eosinophils (%) (Auto) 0 % (0-3) 0 % (0-3) Basophils (%) (Auto) 0 % (0-3) 0 % (0-3) Neutrophils # (Auto) 8.1 x10^3uL (1.8-7.7) 5.7 x10^3uL (1.8-7.7) Lymphocytes # (Auto) 1.2 x10^3/uL (1.0-4.8) 0.9 x10^3/uL (1.0-4.8) Monocytes # (Auto) 0.7 x10^3/uL (0.0-1.1) 0.4 x10^3/uL (0.0-1.1) Eosinophils # (Auto) 0.0 x10^3/uL (0.0-0.7) 0.0 x10^3/uL (0.0-0.7) Basophils # (Auto) 0.0 x10^3/uL (0.0-0.2) 0.0 x10^3/uL (0.0-0.2) Prothrombin Time 12.6 SEC (11.7-14.0) Prothromb Time International Ratio 1.0 (0.8-1.1) Activated Partial Thromboplast Time 28 SEC (24-38) Sodium Level 139 mmol/L (136-145) 143 mmol/L (136-145) Potassium Level 3.9 mmol/L (3.5-5.1) 3.8 mmol/L (3.5-5.1) Chloride Level 102 mmol/L (98-107) 108 mmol/L (98-107) Carbon Dioxide Level 26 mmol/L (21-32) 24 mmol/L (21-32) Anion Gap 11 (6-14) 11 (6-14) Blood Urea Nitrogen 17 mg/dL (7-20) 16 mg/dL (7-20) Creatinine 1.0 mg/dL (0.6-1.0) 0.8 mg/dL (0.6-1.0) Estimated GFR (Cockcroft-Gault) 56.0 72.4 BUN/Creatinine Ratio 17 (6-20) 20 (6-20) Glucose Level 161 mg/dL (70-99) 109 mg/dL (70-99) Calcium Level 9.6 mg/dL (8.5-10.1) 8.1 mg/dL (8.5-10.1) Magnesium Level 2.1 mg/dL (1.8-2.4) Total Bilirubin 3.1 mg/dL (0.2-1.0) 3.6 mg/dL (0.2-1.0) Aspartate Amino Transf (AST/SGOT) 1123 U/L (15-37) 477 U/L (15-37) Alanine Aminotransferase (ALT/SGPT) 880 U/L (14-59) 698 U/L (14-59) Alkaline Phosphatase 58 U/L (46-116) 62 U/L (46-116) Creatine Kinase 162 U/L (26-192) Troponin I Quantitative < 0.017 ng/mL (0.000-0.055) NY-Ezw-Q-Type Natriuretic Peptide 488 pg/mL (0-124) Total Protein 7.8 g/dL (6.4-8.2) 5.8 g/dL (6.4-8.2) Albumin 3.7 g/dL (3.4-5.0) 3.0 g/dL (3.4-5.0) Albumin/Globulin Ratio 0.9 (1.0-1.7) 1.1 (1.0-1.7) Lipase 120 U/L (73-393) 71 U/L (73-393) Ethyl Alcohol Level < 10 mg/dL (0-10) Direct Bilirubin 2.9 mg/dL (0.0-0.2) Amylase Level 38 U/L (25-115) Laboratory Tests Test 02/21/17 04:40 White Blood Count 7.0 x10^3/uL (4.0-11.0) Red Blood Count 3.68 x10^6/uL (3.50-5.40) Hemoglobin 11.5 g/dL (12.0-15.5) Hematocrit 34.7 % (36.0-47.0) Mean Corpuscular Volume 94 fL (79-100) Mean Corpuscular Hemoglobin 31 pg (25-35) Mean Corpuscular Hemoglobin Concent 33 g/dL (31-37) Red Cell Distribution Width 14.4 % (11.5-14.5) Platelet Count 179 x10^3/uL (140-400) Neutrophils (%) (Auto) 81 % (31-73) Lymphocytes (%) (Auto) 13 % (24-48) Monocytes (%) (Auto) 6 % (0-9) Eosinophils (%) (Auto) 0 % (0-3) Basophils (%) (Auto) 0 % (0-3) Neutrophils # (Auto) 5.7 x10^3uL (1.8-7.7) Lymphocytes # (Auto) 0.9 x10^3/uL (1.0-4.8) Monocytes # (Auto) 0.4 x10^3/uL (0.0-1.1) Eosinophils # (Auto) 0.0 x10^3/uL (0.0-0.7) Basophils # (Auto) 0.0 x10^3/uL (0.0-0.2) Sodium Level 143 mmol/L (136-145) Potassium Level 3.8 mmol/L (3.5-5.1) Chloride Level 108 mmol/L (98-107) Carbon Dioxide Level 24 mmol/L (21-32) Anion Gap 11 (6-14) Blood Urea Nitrogen 16 mg/dL (7-20) Creatinine 0.8 mg/dL (0.6-1.0) Estimated GFR (Cockcroft-Gault) 72.4 BUN/Creatinine Ratio 20 (6-20) Glucose Level 109 mg/dL (70-99) Calcium Level 8.1 mg/dL (8.5-10.1) Total Bilirubin 3.6 mg/dL (0.2-1.0) Direct Bilirubin 2.9 mg/dL (0.0-0.2) Aspartate Amino Transf (AST/SGOT) 477 U/L (15-37) Alanine Aminotransferase (ALT/SGPT) 698 U/L (14-59) Alkaline Phosphatase 62 U/L (46-116) Total Protein 5.8 g/dL (6.4-8.2) Albumin 3.0 g/dL (3.4-5.0) Albumin/Globulin Ratio 1.1 (1.0-1.7) Amylase Level 38 U/L (25-115) Lipase 71 U/L (73-393) Medications Current Medications Hydromorphone HCl (Dilaudid) 1 mg 1X ONCE IV Last administered on 02/20/17 06 :45; Start 02/20/17 at 07:00; Stop 02/20/17 at 07:01; Status DC Ondansetron HCl (Zofran) 8 mg 1X ONCE IV Last administered on 02/20/17 06:45 ; Start 02/20/17 at 07:00; Stop 02/20/17 at 07:01; Status DC Sodium Chloride 1,000 ml @ 1,000 mls/hr 1X ONCE IV Last administered on 06:45; Start 02/20/17 at 07:00; Stop 02/20/17 at 07:59; Status DC Pantoprazole Sodium (Protonix Vial) 40 mg 1X ONCE IVP Last administered on 06:45; Start 02/20/17 at 07:00; Stop 02/20/17 at 07:01; Status DC Iohexol (Omnipaque 300 Mg/ml) 75 ml 1X ONCE IV Last administered on 02/20/17 07:24; Start 02/20/17 at 07:15; Stop 02/20/17 at 07:16; Status DC Info (Do NOT chart on this entry -- for MONITORING) 1 each PRN DAILY PRN MC SEE COMMENTS; Start 02/20/17 at 07:30; Stop 02/22/17 at 07:29 Ondansetron HCl (Zofran) 4 mg PRN Q8HRS PRN IV NAUSEA/VOMITING Last administered on 02/20/17 12:10; Start 02/20/17 at 08:15; Stop 02/21/17 at 08:14 ; Status DC Fentanyl Citrate (Fentanyl 2ml Vial) 50 mcg PRN Q2HR PRN IV PAIN Last administered on 02/20/17 12:10; Start 02/20/17 at 08:15; Stop 02/21/17 at 08:14 ; Status DC Piperacillin Sod/ Tazobactam Sod 3.375 gm/Sodium Chloride 50 ml @ 100 mls/hr 1X ONCE IV Last administered on 02/20/17 08:30; Start 02/20/17 at 08:30; Stop 02/20/17 at 08:59; Status DC Sodium Chloride 1,000 ml @ 100 mls/hr 1X ONCE IV Last administered on 08:30; Start 02/20/17 at 08:30; Stop 02/20/17 at 18:29; Status DC Pantoprazole Sodium (Protonix Vial) 40 mg DAILYAC IVP Last administered on 02/21 08:34; Start 02/21/17 at 07:30 Sodium Chloride 1,000 ml @ 100 mls/hr Q10H IV Last administered on 02/20/17 12:11; Start 02/20/17 at 12:30 Acetaminophen (Tylenol) 650 mg PRN Q6HRS PRN PO FEVER Last administered on 02/21 08:33; Start 02/20/17 at 15:30 Ondansetron HCl (Zofran) 4 mg PRN Q6HRS PRN IV NAUSEA/VOMITING; Start 02/20/17 at 15:30 Morphine Sulfate 2 mg PRN Q2HR PRN IV PAIN; Start 02/20/17 at 15:30 Tramadol HCl (Ultram) 50 mg PRN Q6HRS PRN PO PAIN Last administered on 08:34; Start 02/20/17 at 15:30 Hydralazine HCl (Apresoline) 10 mg PRN Q4HRS PRN IVP ELEVATED BP, SEE COMMENTS ; Start 02/20/17 at 15:30 Docusate Sodium (Colace) 100 mg PRN DAILY PRN PO CONSTIPATION; Start 02/20/17 at 15:30 Iohexol (Omnipaque 300 Mg/ml) 50 ml STK-MED ONCE .ROUTE ; Start 02/20/17 at 16: 31; Stop 02/20/17 at 16:32; Status DC Glucagon (Glucagen) 1 mg STK-MED ONCE .ROUTE ; Start 02/20/17 at 18:43; Stop 08/27 at 18:44; Status DC Piperacillin Sod/ Tazobactam Sod 3.375 gm/Sodium Chloride 50 ml @ 100 mls/hr 1X ONCE IV ; Start 02/21/17 at 12:00; Stop 02/21/17 at 12:29; Status DC Ondansetron HCl (Zofran) 4 mg PRN Q6HRS PRN IV NAUSEA/VOMITING; Start 02/21/17 at 12:15; Stop 02/22/17 at 12:14 Fentanyl Citrate (Fentanyl 2ml Vial) 25 mcg PRN Q5MIN PRN IV MILD PAIN; Start 02/21/17 at 12:15; Stop 02/22/17 at 12:14 Fentanyl Citrate (Fentanyl 2ml Vial) 50 mcg PRN Q5MIN PRN IV MODERATE PAIN; Start 02/21/17 at 12:15; Stop 02/22/17 at 12:14 Morphine Sulfate 1 mg PRN Q10MIN PRN IV SEVERE PAIN; Start 02/21/17 at 12:15; Stop 02/22/17 at 12:14 Ringer's Solution 1,000 ml @ 30 mls/hr Q24H IV ; Start 02/21/17 at 12:06; Stop 02/22/17 at 00:05 Lidocaine HCl 2 ml PRN 1X PRN ID PRIOR TO IV START; Start 02/21/17 at 12:15; Stop 02/22/17 at 12:14 Hydromorphone HCl (Dilaudid) 0.5 mg PRN Q10MIN PRN IV SEV PAIN, Second choice; Start 02/21/17 at 12:15; Stop 02/22/17 at 12:14 Prochlorperazine Edisylate (Compazine) 5 mg PACU PRN PRN IV NAUSEA, MRX1; Start 02/21/17 at 12:15; Stop 02/22/17 at 12:14 Propofol 20 ml @ As Directed STK-MED ONCE IV ; Start 02/21/17 at 12:13; Stop at 12:14; Status DC Lidocaine HCl (Lidocaine Pf 2% Vial) 5 ml STK-MED ONCE .ROUTE ; Start 02/21/17 at 12:13; Stop 02/21/17 at 12:14; Status DC Fentanyl Citrate (Fentanyl 2ml Vial) 100 mcg STK-MED ONCE .ROUTE ; Start at 12:13; Stop 02/21/17 at 12:14; Status DC Succinylcholine Chloride (Anectine) 200 mg STK-MED ONCE .ROUTE ; Start 02/21/17 at 12:14; Stop 02/21/17 at 12:15; Status DC Rocuronium [place] (Zemuron) 50 mg STK-MED ONCE .ROUTE ; Start 02/21/17 at 12:14 ; Stop 02/21/17 at 12:15; Status DC Cellulose 1 each STK-MED ONCE .ROUTE ; Start 02/21/17 at 12:28; Stop 02/21/17 at 12:29; Status DC Bupivacaine HCl/ Epinephrine Bitart (Sensorcain-Mpf Epi 0.5%-1:[id number]) 30 ml STK -MED ONCE .ROUTE ; Start 02/21/17 at 12:28; Stop 02/21/17 at 12:29; Status DC Iohexol (Omnipaque 300 Mg/ml) 50 ml STK-MED ONCE .ROUTE ; Start 02/21/17 at 12: 28; Stop 02/21/17 at 12:29; Status DC Glucagon (Glucagen) 1 mg STK-MED ONCE .ROUTE ; Start 02/21/17 at 12:28; Stop at 12:29; Status DC Vitals/I & O Vital Sign - Last 24 Hours 02/20/17 02/20/17 02/20/17 02/20/17 15:00 16:47 18:17 18:24 Temp 97.9 97.9 97.5 97.9 97.9 97.5 Pulse 62 58 75 68 Resp 18 18 16 16 B/P (MAP) 96/48 (64) 140/69 Pulse Ox 97 100 99 100 O2 Delivery Room Air Simple Mask Simple Mask O2 Flow Rate 5 5 02/20/17 02/20/17 02/20/17 02/20/17 18:30 18:45 19:00 19:07 Temp 99.1 99.1 Pulse 67 70 51 50 Resp 16 16 20 B/P (MAP) 127/61 115/57 163/46 (85) 163/46 (85) Pulse Ox 95 97 97 O2 Delivery Room Air Room Air Room Air 02/20/17 02/20/17 02/20/17 02/20/17 19:15 19:31 19:43 19:43 Pulse 56 57 53 Resp 18 B/P (MAP) 149/50 (83) 102/24 (50) 120/54 (76) Pulse Ox 89 93 94 O2 Delivery Room Air 02/20/17 02/20/17 02/20/17 02/20/17 20:00 20:01 20:31 21:00 Pulse 57 64 79 B/P (MAP) 122/55 (77) 108/47 (67) 112/49 (70) Pulse Ox 91 92 95 O2 Delivery Room Air 02/20/17 02/20/17 02/21/17 02/21/17 21:40 23:00 03:00 07:00 Temp 98.8 98.1 98.4 98.8 98.1 98.4 Pulse 74 78 73 76 Resp 18 18 18 B/P (MAP) 128/57 (80) 107/55 (72) 98/58 (71) 118/61 (80) Pulse Ox 95 91 93 97 O2 Delivery Room Air Room Air 02/21/17 02/21/17 02/21/17 02/21/17 07:30 08:34 09:40 11:00 Temp 98.2 98.2 Pulse 71 Resp 16 16 18 B/P (MAP) 125/53 (77) Pulse Ox 97 O2 Delivery Room Air Room Air Room Air Room Air Intake and Output 02/20/17 02/20/17 02/21/17 15:00 23:00 07:00 Intake Total 50 ml 0 ml Output Total 2 ml Balance 50 ml -2 ml 0 ml ALICIA TORRES MD Feb 21, 2017 12:39
[2017-02-21] MEDS ORDERED: DEXAMETHASONE SOD PHOS 20 MG/5 ML VIAL. ONE (12:54)
--- NOTE | 2017-02-21 13:01 | EKG ---
[facility] [address] [place] [address] Test Date: 2017-02-21 Test Time: 11:56:00 Pat Name: VIKRAM HALE Department: Room: 422 Gender: F Title Assistant: YU : 1955 Requested By: ALICIA TORRES Order Number: [id number] Reading MD: Juan M Leary Measurements Intervals [place] Rate: 69 P: 48 NC: 130 QRS: 43 QRSD: 82 T: 31 QT: 408 QTc: 439 Interpretive Statements SINUS RHYTHM Electronically Signed On 02-21-2017 16:58:06 CDT by Juan M Leary
[2017-02-21] MEDS ORDERED: ePHEDrine PF IN SALINE 50 MG/5 ML DISP.SYRIN IV ONE (13:08)
[2017-02-21] MEDS ORDERED: GLYCOPYRROLATE 1 MG/5 ML VIAL. ONE (13:39)
[2017-02-21] MEDS ORDERED: NEOSTIGMINE METHYLSULFATE 5 MG/5 ML SYRINGE. ONE (13:39)
[2017-02-21] MEDS ORDERED: ONDANSETRON PF 4 MG/2 ML VIAL. ONE (13:39)
--- NOTE | 2017-02-21 13:39 | RAD ---
Intraoperative plain film exam 02/21/2017 Clinical history: Laparoscopic cholecystectomy. 3 digital spot radiographs of the right upper quadrant of the abdomen were obtained during an intraoperative cholangiogram. The fluoroscopic time is listed as 0.15 minutes. These images demonstrate contrast opacifying the cystic duct remnant, the common hepatic duct, the left and right hepatic ducts and their branches and the common bile duct. These ducts are normal in caliber. Free spillage of contrast into the duodenum is noted. No filling defect seen. Impression: Negative study.
--- NOTE | 2017-02-21 14:11 | PDOC ---
BRIEF OPERATIVE NOTE Date: Feb 21, 2017 Pre-Op Diagnosis acalculous cholecystitis Post-Op Diagnosis same Procedure Performed l/s cholecystectomy with cholangiograms, liver biopsy Surgeon Sergio Epic Trainer Maggie VOSS Anesthesia Type: General Blood Loss 20cc IV Fluid 700cc Urine Output 150cc Specimens Obtained GB, liver biopsy Findings edematous GB, normal grams Complications none Additional Remarks Wk # [id number] EMIL WOOD MD Feb 21, 2017 14:11
[2017-02-21] MEDS ORDERED: diphenhydrAMINE HCL 25 MG CAPSULE PO PRN (14:15)
[2017-02-21] MEDS ORDERED: HYDROmorphone 2 MG/ML VIAL IV PRN (14:15)
[2017-02-21] MEDS ORDERED: 0.9 % SODIUM CHLORIDE 10 ML DISP.SYRIN. IV PRN (14:15)
[2017-02-21] MEDS ORDERED: DEXTROSE 50% 25 GM / 50ML DISP.SYRIN. IV PRN (14:15)
[2017-02-21] MEDS ORDERED: diphenhydrAMINE 50 MG/ML VIAL IV PRN (14:15)
[2017-02-21] MEDS ORDERED: ENOXAPARIN 40 MG/0.4 ML SYRINGE. SQ SCH (14:15)
[2017-02-21] MEDS: fentaNYL PF VIAL 100 MCG/2 ML VIAL IV PRN ×2 (14:21→14:37)
[2017-02-21] MEDS: MORPHINE SULFATE 2 MG/ML DISP.SYRIN. IV PRN ×4 (14:27→15:04)
[2017-02-21] MEDS: HYDROmorphone 2 MG/ML VIAL IV PRN ×4 (15:18→15:52)
[2017-02-21] MEDS: oxyCODONE/APAP 5/325 1 TAB TABLET PO PRN ×2 (18:47→22:42)
--- NOTE | 2017-02-21 18:47 | OP ---
DATE OF SURGERY: 02/20/2017 PREOPERATIVE DIAGNOSIS: Acalculous cholecystitis. POSTOPERATIVE DIAGNOSIS: Acalculous cholecystitis. PROCEDURE: Laparoscopic cholecystectomy with cholangiograms, Alon-Cut needle liver biopsy. SURGEON: Zac Wood MD TRAINING FACILITATOR: ____. ANESTHESIA: General endotracheal. ESTIMATED BLOOD LOSS: 20. IV FLUIDS: 700. URINE OUTPUT: 75. INDICATIONS: The patient is a 61-year-old with epigastric and right upper quadrant pain. CT scan on presentation showed thickened wall gallbladder. She is brought for cholecystectomy. OPERATIVE FINDINGS: The liver was smooth and sharp with some fibrotic change. The gallbladder was slightly edematous. Cholangiograms were normal. Visual inspection of the remainder of the abdomen showed only some mild amount of turbid fluid without other abnormalities. DESCRIPTION OF PROCEDURE: The patient brought to the operating suite, given a general endotracheal anesthetic. Quiles catheter ____ drainage and the abdomen prepped and draped in usual sterile fashion. A supraumbilical incision was infiltrated with local anesthetic, incised and a 5 mm Visiport used to gain access into the abdominal cavity, taking care to avoid injury to abdominal contents. Pneumoperitoneum established. Camera inserted. Inspection carried out with results as noted above. With the table in reverse Trendelenburg rolled to the left, the epigastric, midclavicular and lateral ports were placed under direct vision. The gallbladder was retracted superolaterally and the cystic duct and cystic artery were carefully exposed. The cystic duct was clipped on the gallbladder side. Cholangiograms were made. These were normal. In light of this, the catheter was removed. The cystic duct was clipped x 3, taking care to avoid injury or compromise the common duct. The cystic artery was doubly clipped and divided and the gallbladder freed from the bed with cautery dissection and placed in an EndoCatch bag. A small vessel posteriorly part way up the fossa was controlled with clips. Table returned to level. Intra-abdominal pressure decreased to 6 cm. The 14-gauge Alon-Cut biopsy needle was passed x 2 for liver biopsy. Hemostasis obtained with cautery. Biopsy site was covered with FloSeal. Gallbladder delivered through the epigastric incision. Epigastric incision closed with interrupted 0 Vicryl suture. Again, at 6 cm intra-abdominal pressure, no bleeding from the epigastric closure or from the midclavicular port site after its removal or from the drain site. Abdomen decompressed, camera slowly removed, no bleeding seen. Skin incisions closed with subcuticular 4-0 Monocryl. Steri-Strips and sterile dressings applied. Quiles catheter removed. The patient awakened from her anesthetic and taken to the recovery room in satisfactory condition. ZAC WOOD MD DR: ELIZ/robi JOB#: [id number] / [id number]
[2017-02-21] MEDS: POTASSIUM CL 20MEQ-0.45% NACL 1,000 ML IV SCH (18:48)
[2017-02-21] MEDS: DOCUSATE SODIUM 100 MG CAPSULE. PO SCH (20:50)
[2017-02-22] VITALS (7 sets, daily range): BP systolic 107–126; BP diastolic 50–70
[2017-02-22] MEDS: POTASSIUM CL 20MEQ-0.45% NACL 1,000 ML IV SCH ×3 (00:11→14:11)
[2017-02-22] MEDS: MORPHINE SULFATE 2 MG/ML DISP.SYRIN. IV PRN ×2 (00:21→09:40)
--- NOTE | 2017-02-22 02:01 | CONS ---
DATE OF CONSULTATION: 02/20/2017 This note is dictated from the note placed yesterday. SUBJECTIVE: The patient is a 61-year-old female who had some ____ prior to presenting to the Emergency Department with severe epigastric and right upper quadrant abdominal pain for about 3 days. She thought she had contracted food poisoning. She was evaluated with a CT abdomen and pelvis in the ED, was found to have thickening of the gallbladder wall and possible evidence of choledocholithiasis. She was admitted and underwent ERCP with balloon sweep yesterday. We were asked to see her to evaluate the changes in her gallbladder and discussed possible cholecystectomy. She denies any similar previous issues like this. She overall is very healthy. PAST MEDICAL HISTORY: Surgery: None. Medically, denies any heart, lung or kidney problems. She does take Aleve daily for some muscle and joint pain. ALLERGIES: No known drug allergies. ROUTINE MEDICATIONS: Listed on reconciliation sheet. FAMILY HISTORY: Noncontributory to this illness. SOCIAL HISTORY: She is a nonsmoker who does not regularly use alcohol. REVIEW OF SYSTEMS: GENERAL: Denies any fever or chills. HEENT: No recent sore throat or earaches. No icterus. LUNGS: No productive cough or wheezing. CARDIAC: No chest pain or palpitations. GASTROINTESTINAL: See history of present illness. Of note, she had abdominal pain, but no nausea, vomiting. NEUROLOGIC: Denies headaches or recent visual changes. MUSCULOSKELETAL: Some chronic pain for which she uses Aleve. PSYCHIATRIC: Normal history. OBJECTIVE/PHYSICAL EXAMINATION: GENERAL: Reveals a pleasant, well-developed, well-nourished female in no acute distress, who is alert and oriented. VITAL SIGNS: She is afebrile at 94, heart rate 76, blood pressure 118/61. HEENT: Normocephalic. EOMs intact. NECK: Supple. LUNGS: Clear. HEART: Regular rate and rhythm. BREASTS: Deferred. ABDOMEN: The belly is soft, nondistended, minimal tenderness to palpation in the epigastric and right upper quadrant (the patient states that since her ERCP, she used no pain medication). PELVIC AND RECTAL: Deferred. EXTREMITIES: Showed no gross skeletal abnormalities. NEUROLOGIC: She is grossly intact. LABORATORY DATA: Admission white count was 9900, is now 7000. Hemoglobin was 14.4, now 11.5. Chemistries on presentation: Her total bilirubin was 3.1, this morning is 3.6. AST down from 1123 to 477, ALT 880 to 698. Coags are normal. CT scan of the abdomen and pelvis showed gallbladder wall thickening. They suspected a stone in the distal common duct with mild biliary dilatation. IMPRESSION: 1. Epigastric and right upper quadrant abdominal pain after a fatty meal. 1.1. Possible choledocholithiasis status post ERCP yesterday, results as noted. 1.2. Gallbladder wall thickening. 1.3. Elevation of liver function studies. 2. Anemia, ____? PLAN: Discussed options with the patient of obtaining an ultrasound of the gallbladder to further assess the changes seen on CT versus nuclear medicine scan versus proceeding with cholecystectomy. I explained risks of the surgery including but not limited to bleeding, infection, injury to the bowel, liver or bile ducts with resultant bile leak or bowel blockage. Also, the potential for requiring an "open" procedure or having diarrhea postoperatively. At present, she would like to "try to avoid surgery if I can." Towards that end, we will obtain an ultrasound to further assess presence or absence of stones and status of the gallbladder wall after current treatment. Thank you for asking us to see the patient and participate in her care. We will follow her with you during her hospitalization. EMIL WOOD MD DR: ELIZ/robi JOB#: [id number] / [id number]
[2017-02-22] MEDS: IV NORMAL SALINE 1000ML BAG 1,000 ML IV SCH (04:30)
[2017-02-22] MEDS: oxyCODONE/APAP 5/325 1 TAB TABLET PO PRN ×4 (04:39→20:51)
[2017-02-22 06:52] LABS: BASO % 0 % (0-3); EOS % 0 % (0-3); HEMATOCRIT 32.7 % (36.0-47.0); HEMOGLOBIN 11.4 g/dL (12.0-15.5); LYMPH # 1.2 x10^3/uL (1.0-4.8); LYMPH % 13 % (24-48); MEAN CORPUSCULAR HEMOGLOBIN 32 pg (25-35); MEAN CORPUSCULAR HGB CONC 35 g/dL (31-37); MEAN CORPUSCULAR VOLUME 93 fL (79-100); MONO % 8 % (0-9); NEUT % 79 % (31-73); PLATELET COUNT 185 x10^3/uL (140-400); RED BLOOD COUNT 3.53 x10^6/uL (3.50-5.40); RED CELL DISTRIBUTION WIDTH 14.6 % (11.5-14.5); WHITE BLOOD COUNT 8.8 x10^3/uL (4.0-11.0)
[2017-02-22 07:21] LABS: ALBUMIN 2.9 g/dL (3.4-5.0); CALCIUM 8.3 mg/dL (8.5-10.1); CREATININE 0.9 mg/dL (0.6-1.0); DIRECT BILIRUBIN 2.9 mg/dL (0.0-0.2); GFR 63.2; POTASSIUM 3.9 mmol/L (3.5-5.1); TOTAL BILIRUBIN 3.4 mg/dL (0.2-1.0); TOTAL PROTEIN 6.3 g/dL (6.4-8.2)
[2017-02-22] MEDS: DOCUSATE SODIUM 100 MG CAPSULE. PO SCH ×2 (08:37→20:51)
--- NOTE | 2017-02-22 11:43 | PDOC ---
PROGRESS NOTES Chief Complaint Chief Complaint 1. abd pain with acute cholecystitis 2. cholelithiasis s/p ERCP with sphincterectomy 3. elevated transaminitis 4. HLD 5. overweight plan: GI, sx consulted ERCP 02/20, lap maribeth 02/21 regular diet ivf pain control gi ppx stool softner, encourage ambulate labs tmr fu with sx to see if remove RUDDY today or tmr plan dc tmr History of Present Illness History of Present Illness pain better LFT better slightly better post sx no bm, has flatus has 1 RUDDY with 70cc sangueous fluid overnight Vitals Vitals Vital Signs Date Time Temp Pulse Resp B/P (MAP) Pulse Ox O2 Delivery O2 Flow Rate FiO2 02/22/17 10:15 16 Room Air 02/22/17 07:00 98.4 74 107/54 (71) 90 98.4 02/22/17 03:43 1.0 Physical Exam Physical Exam has 1 RUDDY with 70cc sangueous fluid overnight General: Alert, Oriented X3, Cooperative Heart: Regular rate, Normal S1, Normal S2 Lungs: Clear, Wheezing Abdomen: Normal bowel sounds, Soft, Other (clean sx wound) Extremities: No clubbing, No cyanosis Labs LABS Laboratory Tests Test 02/22/17 05:35 White Blood Count 8.8 x10^3/uL (4.0-11.0) Red Blood Count 3.53 x10^6/uL (3.50-5.40) Hemoglobin 11.4 g/dL (12.0-15.5) Hematocrit 32.7 % (36.0-47.0) Mean Corpuscular Volume 93 fL (79-100) Mean Corpuscular Hemoglobin 32 pg (25-35) Mean Corpuscular Hemoglobin Concent 35 g/dL (31-37) Red Cell Distribution Width 14.6 % (11.5-14.5) Platelet Count 185 x10^3/uL (140-400) Neutrophils (%) (Auto) 79 % (31-73) Lymphocytes (%) (Auto) 13 % (24-48) Monocytes (%) (Auto) 8 % (0-9) Eosinophils (%) (Auto) 0 % (0-3) Basophils (%) (Auto) 0 % (0-3) Neutrophils # (Auto) 6.9 x10^3uL (1.8-7.7) Lymphocytes # (Auto) 1.2 x10^3/uL (1.0-4.8) Monocytes # (Auto) 0.7 x10^3/uL (0.0-1.1) Eosinophils # (Auto) 0.0 x10^3/uL (0.0-0.7) Basophils # (Auto) 0.0 x10^3/uL (0.0-0.2) Sodium Level 141 mmol/L (136-145) Potassium Level 3.9 mmol/L (3.5-5.1) Chloride Level 107 mmol/L (98-107) Carbon Dioxide Level 25 mmol/L (21-32) Anion Gap 9 (6-14) Blood Urea Nitrogen 21 mg/dL (7-20) Creatinine 0.9 mg/dL (0.6-1.0) Estimated GFR (Cockcroft-Gault) 63.2 Glucose Level 80 mg/dL (70-99) Calcium Level 8.3 mg/dL (8.5-10.1) Total Bilirubin 3.4 mg/dL (0.2-1.0) Direct Bilirubin 2.9 mg/dL (0.0-0.2) Aspartate Amino Transf (AST/SGOT) 351 U/L (15-37) Alanine Aminotransferase (ALT/SGPT) 631 U/L (14-59) Alkaline Phosphatase 63 U/L (46-116) Total Protein 6.3 g/dL (6.4-8.2) Albumin 2.9 g/dL (3.4-5.0) Review of Systems Review of Systems no fever, chills, sob or chest pain Assessment and Plan Assessmemt and Plan Problems Medical Problems: (1) Choledocholithiasis Status: Acute (2) Transaminitis Status: Acute Problems: Comment Review of Relevant I have reviewed the following items poli (where applicable) has been applied. Labs Laboratory Tests Test 02/21/17 04:40 02/22/17 05:35 White Blood Count 7.0 x10^3/uL (4.0-11.0) 8.8 x10^3/uL (4.0-11.0) Red Blood Count 3.68 x10^6/uL (3.50-5.40) 3.53 x10^6/uL (3.50-5.40) Hemoglobin 11.5 g/dL (12.0-15.5) 11.4 g/dL (12.0-15.5) Hematocrit 34.7 % (36.0-47.0) 32.7 % (36.0-47.0) Mean Corpuscular Volume 94 fL (79-100) 93 fL (79-100) Mean Corpuscular Hemoglobin 31 pg (25-35) 32 pg (25-35) Mean Corpuscular Hemoglobin Concent 33 g/dL (31-37) 35 g/dL (31-37) Red Cell Distribution Width 14.4 % (11.5-14.5) 14.6 % (11.5-14.5) Platelet Count 179 x10^3/uL (140-400) 185 x10^3/uL (140-400) Neutrophils (%) (Auto) 81 % (31-73) 79 % (31-73) Lymphocytes (%) (Auto) 13 % (24-48) 13 % (24-48) Monocytes (%) (Auto) 6 % (0-9) 8 % (0-9) Eosinophils (%) (Auto) 0 % (0-3) 0 % (0-3) Basophils (%) (Auto) 0 % (0-3) 0 % (0-3) Neutrophils # (Auto) 5.7 x10^3uL (1.8-7.7) 6.9 x10^3uL (1.8-7.7) Lymphocytes # (Auto) 0.9 x10^3/uL (1.0-4.8) 1.2 x10^3/uL (1.0-4.8) Monocytes # (Auto) 0.4 x10^3/uL (0.0-1.1) 0.7 x10^3/uL (0.0-1.1) Eosinophils # (Auto) 0.0 x10^3/uL (0.0-0.7) 0.0 x10^3/uL (0.0-0.7) Basophils # (Auto) 0.0 x10^3/uL (0.0-0.2) 0.0 x10^3/uL (0.0-0.2) Sodium Level 143 mmol/L (136-145) 141 mmol/L (136-145) Potassium Level 3.8 mmol/L (3.5-5.1) 3.9 mmol/L (3.5-5.1) Chloride Level 108 mmol/L (98-107) 107 mmol/L (98-107) Carbon Dioxide Level 24 mmol/L (21-32) 25 mmol/L (21-32) Anion Gap 11 (6-14) 9 (6-14) Blood Urea Nitrogen 16 mg/dL (7-20) 21 mg/dL (7-20) Creatinine 0.8 mg/dL (0.6-1.0) 0.9 mg/dL (0.6-1.0) Estimated GFR (Cockcroft-Gault) 72.4 63.2 BUN/Creatinine Ratio 20 (6-20) Glucose Level 109 mg/dL (70-99) 80 mg/dL (70-99) Calcium Level 8.1 mg/dL (8.5-10.1) 8.3 mg/dL (8.5-10.1) Total Bilirubin 3.6 mg/dL (0.2-1.0) 3.4 mg/dL (0.2-1.0) Direct Bilirubin 2.9 mg/dL (0.0-0.2) 2.9 mg/dL (0.0-0.2) Aspartate Amino Transf (AST/SGOT) 477 U/L (15-37) 351 U/L (15-37) Alanine Aminotransferase (ALT/SGPT) 698 U/L (14-59) 631 U/L (14-59) Alkaline Phosphatase 62 U/L (46-116) 63 U/L (46-116) Total Protein 5.8 g/dL (6.4-8.2) 6.3 g/dL (6.4-8.2) Albumin 3.0 g/dL (3.4-5.0) 2.9 g/dL (3.4-5.0) Albumin/Globulin Ratio 1.1 (1.0-1.7) Amylase Level 38 U/L (25-115) Lipase 71 U/L (73-393) Laboratory Tests Test 02/22/17 05:35 White Blood Count 8.8 x10^3/uL (4.0-11.0) Red Blood Count 3.53 x10^6/uL (3.50-5.40) Hemoglobin 11.4 g/dL (12.0-15.5) Hematocrit 32.7 % (36.0-47.0) Mean Corpuscular Volume 93 fL (79-100) Mean Corpuscular Hemoglobin 32 pg (25-35) Mean Corpuscular Hemoglobin Concent 35 g/dL (31-37) Red Cell Distribution Width 14.6 % (11.5-14.5) Platelet Count 185 x10^3/uL (140-400) Neutrophils (%) (Auto) 79 % (31-73) Lymphocytes (%) (Auto) 13 % (24-48) Monocytes (%) (Auto) 8 % (0-9) Eosinophils (%) (Auto) 0 % (0-3) Basophils (%) (Auto) 0 % (0-3) Neutrophils # (Auto) 6.9 x10^3uL (1.8-7.7) Lymphocytes # (Auto) 1.2 x10^3/uL (1.0-4.8) Monocytes # (Auto) 0.7 x10^3/uL (0.0-1.1) Eosinophils # (Auto) 0.0 x10^3/uL (0.0-0.7) Basophils # (Auto) 0.0 x10^3/uL (0.0-0.2) Sodium Level 141 mmol/L (136-145) Potassium Level 3.9 mmol/L (3.5-5.1) Chloride Level 107 mmol/L (98-107) Carbon Dioxide Level 25 mmol/L (21-32) Anion Gap 9 (6-14) Blood Urea Nitrogen 21 mg/dL (7-20) Creatinine 0.9 mg/dL (0.6-1.0) Estimated GFR (Cockcroft-Gault) 63.2 Glucose Level 80 mg/dL (70-99) Calcium Level 8.3 mg/dL (8.5-10.1) Total Bilirubin 3.4 mg/dL (0.2-1.0) Direct Bilirubin 2.9 mg/dL (0.0-0.2) Aspartate Amino Transf (AST/SGOT) 351 U/L (15-37) Alanine Aminotransferase (ALT/SGPT) 631 U/L (14-59) Alkaline Phosphatase 63 U/L (46-116) Total Protein 6.3 g/dL (6.4-8.2) Albumin 2.9 g/dL (3.4-5.0) Medications Current Medications Hydromorphone HCl (Dilaudid) 1 mg 1X ONCE IV Last administered on 02/20/17 06 :45; Start 02/20/17 at 07:00; Stop 02/20/17 at 07:01; Status DC Ondansetron HCl (Zofran) 8 mg 1X ONCE IV Last administered on 02/20/17 06:45 ; Start 02/20/17 at 07:00; Stop 02/20/17 at 07:01; Status DC Sodium Chloride 1,000 ml @ 1,000 mls/hr 1X ONCE IV Last administered on 06:45; Start 02/20/17 at 07:00; Stop 02/20/17 at 07:59; Status DC Pantoprazole Sodium (Protonix Vial) 40 mg 1X ONCE IVP Last administered on 06:45; Start 02/20/17 at 07:00; Stop 02/20/17 at 07:01; Status DC Iohexol (Omnipaque 300 Mg/ml) 75 ml 1X ONCE IV Last administered on 02/20/17 07:24; Start 02/20/17 at 07:15; Stop 02/20/17 at 07:16; Status DC Info (Do NOT chart on this entry -- for MONITORING) 1 each PRN DAILY PRN MC SEE COMMENTS; Start 02/20/17 at 07:30; Stop 02/22/17 at 07:29; Status DC Ondansetron HCl (Zofran) 4 mg PRN Q8HRS PRN IV NAUSEA/VOMITING Last administered on 02/20/17 12:10; Start 02/20/17 at 08:15; Stop 02/21/17 at 08:14 ; Status DC Fentanyl Citrate (Fentanyl 2ml Vial) 50 mcg PRN Q2HR PRN IV PAIN Last administered on 02/20/17 12:10; Start 02/20/17 at 08:15; Stop 02/21/17 at 08:14 ; Status DC Piperacillin Sod/ Tazobactam Sod 3.375 gm/Sodium Chloride 50 ml @ 100 mls/hr 1X ONCE IV Last administered on 02/20/17 08:30; Start 02/20/17 at 08:30; Stop 02/20/17 at 08:59; Status DC Sodium Chloride 1,000 ml @ 100 mls/hr 1X ONCE IV Last administered on 08:30; Start 02/20/17 at 08:30; Stop 02/20/17 at 18:29; Status DC Pantoprazole Sodium (Protonix Vial) 40 mg DAILYAC IVP Last administered on 02/21 08:34; Start 02/21/17 at 07:30 Sodium Chloride 1,000 ml @ 100 mls/hr Q10H IV Last administered on 02/20/17 12:11; Start 02/20/17 at 12:30 Acetaminophen (Tylenol) 650 mg PRN Q6HRS PRN PO FEVER Last administered on 02/21 08:33; Start 02/20/17 at 15:30 Ondansetron HCl (Zofran) 4 mg PRN Q6HRS PRN IV NAUSEA/VOMITING; Start 02/20/17 at 15:30; Stop 02/21/17 at 18:51; Status DC Morphine Sulfate 2 mg PRN Q2HR PRN IV PAIN Last administered on 02/22/17 09:40 ; Start 02/20/17 at 15:30 Tramadol HCl (Ultram) 50 mg PRN Q6HRS PRN PO PAIN Last administered on 20:51; Start 02/20/17 at 15:30 Hydralazine HCl (Apresoline) 10 mg PRN Q4HRS PRN IVP ELEVATED BP, SEE COMMENTS ; Start 02/20/17 at 15:30 Docusate Sodium (Colace) 100 mg PRN DAILY PRN PO CONSTIPATION; Start 02/20/17 at 15:30 Iohexol (Omnipaque 300 Mg/ml) 50 ml STK-MED ONCE .ROUTE Last administered on 14:28; Start 02/20/17 at 16:31; Stop 02/20/17 at 16:32; Status DC Glucagon (Glucagen) 1 mg STK-MED ONCE .ROUTE ; Start 02/20/17 at 18:43; Stop 08/27 at 18:44; Status DC Piperacillin Sod/ Tazobactam Sod 3.375 gm/Sodium Chloride 50 ml @ 100 mls/hr 1X ONCE IV Last administered on 02/21/17 12:58; Start 02/21/17 at 12:00; Stop 02/21/17 at 12:29; Status DC Ondansetron HCl (Zofran) 4 mg PRN Q6HRS PRN IV NAUSEA/VOMITING; Start 02/21/17 at 12:15; Stop 02/21/17 at 16:25; Status DC Fentanyl Citrate (Fentanyl 2ml Vial) 25 mcg PRN Q5MIN PRN IV MILD PAIN; Start 02/21/17 at 12:15; Stop 02/21/17 at 16:25; Status DC Fentanyl Citrate (Fentanyl 2ml Vial) 50 mcg PRN Q5MIN PRN IV MODERATE PAIN Last administered on 02/21/17 14:37; Start 02/21/17 at 12:15; Stop 02/21/17 at 16:25; Status DC Morphine Sulfate 1 mg PRN Q10MIN PRN IV SEVERE PAIN Last administered on 15:04; Start 02/21/17 at 12:15; Stop 02/21/17 at 16:25; Status DC Ringer's Solution 1,000 ml @ 30 mls/hr Q24H IV ; Start 02/21/17 at 12:06; Stop 02/21/17 at 16:25; Status DC Lidocaine HCl 2 ml PRN 1X PRN ID PRIOR TO IV START; Start 02/21/17 at 12:15; Stop 02/21/17 at 16:25; Status DC Hydromorphone HCl (Dilaudid) 0.5 mg PRN Q10MIN PRN IV SEV PAIN, Second choice Last administered on 02/21/17 15:52; Start 02/21/17 at 12:15; Stop 02/21/17 at 16:25; Status DC Prochlorperazine Edisylate (Compazine) 5 mg PACU PRN PRN IV NAUSEA, MRX1; Start 02/21/17 at 12:15; Stop 02/21/17 at 16:26; Status DC Propofol 20 ml @ As Directed STK-MED ONCE IV ; Start 02/21/17 at 12:13; Stop at 12:14; Status DC Lidocaine HCl (Lidocaine Pf 2% Vial) 5 ml STK-MED ONCE .ROUTE ; Start 02/21/17 at 12:13; Stop 02/21/17 at 12:14; Status DC Fentanyl Citrate (Fentanyl 2ml Vial) 100 mcg STK-MED ONCE .ROUTE ; Start at 12:13; Stop 02/21/17 at 12:14; Status DC Succinylcholine Chloride (Anectine) 200 mg STK-MED ONCE .ROUTE ; Start 02/21/17 at 12:14; Stop 02/21/17 at 12:15; Status DC Rocuronium [place] (Zemuron) 50 mg STK-MED ONCE .ROUTE ; Start 02/21/17 at 12:14 ; Stop 02/21/17 at 12:15; Status DC Cellulose 1 each STK-MED ONCE .ROUTE ; Start 02/21/17 at 12:28; Stop 02/21/17 at 12:29; Status DC Bupivacaine HCl/ Epinephrine Bitart (Sensorcain-Mpf Epi 0.5%-1:317260) 30 ml STK -MED ONCE .ROUTE Last administered on 02/21/17t 14:26; Start 02/21/17 at 12:28 ; Stop 02/21/17 at 12:29; Status DC Iohexol (Omnipaque 300 Mg/ml) 50 ml STK-MED ONCE .ROUTE ; Start 02/21/17 at 12: 28; Stop 02/21/17 at 12:29; Status DC Glucagon (Glucagen) 1 mg STK-MED ONCE .ROUTE ; Start 02/21/17 at 12:28; Stop at 12:29; Status DC Dexamethasone Sodium Phosphate (Decadron) 20 mg STK-MED ONCE .ROUTE ; Start at 12:54; Stop 02/21/17 at 12:55; Status DC Ephedrine Sulfate 50 mg STK-MED ONCE IV ; Start 02/21/17 at 13:08; Stop at 13:09; Status DC Rocuronium [place] (Zemuron) 50 mg STK-MED ONCE .ROUTE ; Start 02/20/17 at 09:00 ; Stop 02/21/17 at 13:31; Status DC Glycopyrrolate (Robinul) 1 mg STK-MED ONCE .ROUTE ; Start 02/20/17 at 09:00; Stop 02/21/17 at 13:31; Status DC Dexamethasone Sodium Phosphate (Decadron) 20 mg STK-MED ONCE .ROUTE ; Start 08/27 at 09:00; Stop 02/21/17 at 13:31; Status DC Glycopyrrolate (Robinul) 1 mg STK-MED ONCE .ROUTE ; Start 02/21/17 at 13:39; Stop 02/21/17 at 13:40; Status DC Neostigmine Methylsulfate 5 mg STK-MED ONCE .ROUTE ; Start 02/21/17 at 13:39; Stop 02/21/17 at 13:40; Status DC Ondansetron HCl (Zofran) 4 mg STK-MED ONCE .ROUTE ; Start 02/21/17 at 13:39; Stop 02/21/17 at 13:40; Status DC Fentanyl Citrate (Fentanyl 2ml Vial) 100 mcg STK-MED ONCE .ROUTE ; Start at 14:08; Stop 02/21/17 at 14:09; Status DC Diphenhydramine HCl (Benadryl) 25 mg PRN Q6HRS PRN PO ITCHING; Start 02/21/17 at 14:15 Diphenhydramine HCl (Benadryl) 25 mg PRN Q6HRS PRN IV ITCHING; Start 02/21/17 at 14:15 Enoxaparin Sodium (Lovenox 40mg Syringe) 40 mg Q24H SQ Last administered on 18:51; Start 02/21/17 at 14:15 Sodium Chloride (Normal Saline Flush) 3 ml QSHIFT PRN IV AFTER MEDS AND BLOOD DRAWS; Start 02/21/17 at 14:15 Potassium Chloride/Sodium Chloride 1,000 ml @ 100 mls/hr Q10H IV Last administered on 02/22/17 04:39; Start 02/21/17 at 14:11 Dextrose (Dextrose 50%-Water Syringe) 12.5 gm PRN Q15MIN PRN IV SEE COMMENTS; Start 02/21/17 at 14:15 Oxycodone/ Acetaminophen (Percocet 5/325) 1 tab PRN Q4HRS PRN PO MILD PAIN, 1ST CHOICE Last administered on 02/22/17 08:40; Start 02/21/17 at 14:15 Oxycodone/ Acetaminophen (Percocet 5/325) 2 tab PRN Q4HRS PRN PO MODERATE PAIN , SEVERE PAIN Last administered on 02/21/17 22:42; Start 02/21/17 at 14:15 Hydromorphone HCl (Dilaudid) 1 mg PRN Q3HRS PRN IV PAIN; Start 02/21/17 at 14: 15 Docusate Sodium (Colace) 100 mg BID PO Last administered on 02/22/17 08:37; Start 02/21/17 at 21:00 Ondansetron HCl (Zofran) 4 mg PRN Q6HRS PRN IV NAUESA, 1ST CHOICE; Start at 14:15 Vitals/I & O Vital Sign - Last 24 Hours 02/21/17 02/21/17 02/21/17 02/21/17 13:56 14:11 14:21 14:26 Temp 97.9 97.7 97.9 97.7 Pulse 54 65 62 Resp 14 14 14 14 B/P (MAP) 114/56 134/61 106/48 Pulse Ox 97 100 100 99 O2 Delivery Nasal Cannula Simple Mask Simple Mask Simple Mask O2 Flow Rate 2 10 10.0 02/21/17 02/21/17 02/21/17 02/21/17 14:26 14:27 14:37 14:41 Pulse 64 Resp 16 14 14 B/P (MAP) 112/53 Pulse Ox 98 94 97 O2 Delivery Nasal Cannula Simple Mask Room Air Nasal Cannula O2 Flow Rate 2 10.0 2 02/21/17 02/21/17 02/21/17 02/21/17 14:43 14:53 14:56 15:04 Pulse 61 Resp 14 18 14 16 B/P (MAP) 114/56 Pulse Ox 98 98 97 97 O2 Delivery Nasal Cannula Nasal Cannula Nasal Cannula Nasal Cannula O2 Flow Rate 2.0 2.0 2 2.0 02/21/17 02/21/17 02/21/17 02/21/17 15:11 15:18 15:26 15:28 Pulse 59 63 Resp 12 16 16 16 B/P (MAP) 106/47 100/55 Pulse Ox 98 96 96 95 O2 Delivery Nasal Cannula Nasal Cannula Nasal Cannula Nasal Cannula O2 Flow Rate 2 2.0 2 2.0 02/21/17 02/21/17 02/21/17 02/21/17 15:41 15:41 15:52 16:30 Temp 98.2 98.2 Pulse 64 82 Resp 16 16 14 20 B/P (MAP) 111/58 130/70 (90) Pulse Ox 93 97 94 87 O2 Delivery Nasal Cannula Nasal Cannula Nasal Cannula Nasal Cannula O2 Flow Rate 2.0 2 2.0 02/21/17 02/21/17 02/21/17 02/21/17 16:45 17:00 17:15 17:30 Temp 98.2 98.1 98.2 98.1 Pulse 75 76 79 81 Resp 20 20 20 20 B/P (MAP) 114/62 (79) 121/70 (87) 131/73 (92) 131/68 (89) Pulse Ox 89 84 89 90 O2 Delivery Nasal Cannula Nasal Cannula Nasal Cannula Nasal Cannula 02/21/17 02/21/17 02/21/17 02/21/17 18:30 18:47 20:00 20:00 Pulse 82 Resp 20 20 18 B/P (MAP) 113/69 (84) Pulse Ox 89 O2 Delivery Nasal Cannula Nasal Cannula Room Air O2 Flow Rate 2.0 02/21/17 02/21/17 02/21/17 02/21/17 20:51 22:36 22:42 22:50 Temp 98.6 98.6 Pulse 73 Resp 18 18 18 B/P (MAP) 106/68 (81) Pulse Ox 97 O2 Delivery Nasal Cannula Nasal Cannula Nasal Cannula O2 Flow Rate 2.0 1.0 1.0 02/21/17 02/22/17 02/22/17 02/22/17 23:50 00:21 00:24 01:00 Pulse 70 Resp 24 20 B/P (MAP) 124/70 (88) O2 Delivery Nasal Cannula Nasal Cannula Nasal Cannula O2 Flow Rate 1.0 1.0 1.0 1.0 02/22/17 02/22/17 02/22/17 02/22/17 03:43 04:39 07:00 08:00 Temp 98.8 98.4 98.8 98.4 Pulse 72 74 Resp 18 18 18 B/P (MAP) 111/61 (78) 107/54 (71) Pulse Ox 95 90 O2 Delivery Nasal Cannula Nasal Cannula Room Air Room Air O2 Flow Rate 1.0 02/22/17 02/22/17 02/22/17 02/22/17 08:40 09:40 09:42 10:15 Resp 18 18 18 16 O2 Delivery Room Air Room Air Room Air Room Air Intake and Output 02/21/17 02/21/17 02/22/17 15:00 23:00 07:00 Intake Total 750 ml 50 ml 200 ml Output Total 20 ml 50 ml Balance 750 ml 30 ml 150 ml ALICIA TORRES MD Feb 22, 2017 11:43
--- NOTE | 2017-02-22 12:39 | PDOC ---
Subjective: Subjective: Pain around drain, also epigastric. Eating a little. A little flatus. Objective: Objective: Post-op note: l/s cholecystectomy with cholangiograms, liver biopsy acalculous cholecystitis, edematous gallbladder, normal IOC Vital Signs: Vital Signs Date Time Temp Pulse Resp B/P (MAP) Pulse Ox O2 Delivery O2 Flow Rate FiO2 02/22/17 11:00 98.4 70 18 113/55 (74) 86 Room Air 98.4 02/22/17 03:43 1.0 Labs: Laboratory Tests Test 02/22/17 05:35 White Blood Count 8.8 x10^3/uL Red Blood Count 3.53 x10^6/uL Hemoglobin 11.4 g/dL Hematocrit 32.7 % Mean Corpuscular Volume 93 fL Mean Corpuscular Hemoglobin 32 pg Mean Corpuscular Hemoglobin Concent 35 g/dL Red Cell Distribution Width 14.6 % Platelet Count 185 x10^3/uL Neutrophils (%) (Auto) 79 % Lymphocytes (%) (Auto) 13 % Monocytes (%) (Auto) 8 % Eosinophils (%) (Auto) 0 % Basophils (%) (Auto) 0 % Neutrophils # (Auto) 6.9 x10^3uL Lymphocytes # (Auto) 1.2 x10^3/uL Monocytes # (Auto) 0.7 x10^3/uL Eosinophils # (Auto) 0.0 x10^3/uL Basophils # (Auto) 0.0 x10^3/uL Sodium Level 141 mmol/L Potassium Level 3.9 mmol/L Chloride Level 107 mmol/L Carbon Dioxide Level 25 mmol/L Anion Gap 9 Blood Urea Nitrogen 21 mg/dL Creatinine 0.9 mg/dL Estimated GFR (Cockcroft-Gault) 63.2 Glucose Level 80 mg/dL Calcium Level 8.3 mg/dL Total Bilirubin 3.4 mg/dL Direct Bilirubin 2.9 mg/dL Aspartate Amino Transf (AST/SGOT) 351 U/L Alanine Aminotransferase (ALT/SGPT) 631 U/L Alkaline Phosphatase 63 U/L Total Protein 6.3 g/dL Albumin 2.9 g/dL Imaging: IOC 02/21/17 Impression: Negative study. PE: GEN: NAD LUNGS: CTAB HEART: RRR ABD: RUQ and epigastric pain, RUDDY serosang NEURO/PSYCH: A & O 3 A/P: S/p cholecystectomy, liver biopsy Abd pain Elevated LFTs -bili still up, AST/ALT a little better S/p ERCP, sphincterotomy -- Await liver biopsy results, other per Dr. Carter. CARMELO DUONG Feb 22, 2017 12:39
--- NOTE | 2017-02-22 12:40 | PDOC ---
SURGICAL PROGRESS NOTE Subjective doesn't feel great denies n/v Vital Signs Vital Signs Date Time Temp Pulse Resp B/P (MAP) Pulse Ox O2 Delivery O2 Flow Rate FiO2 02/22/17 11:00 98.4 70 18 113/55 (74) 86 Room Air 98.4 02/22/17 03:43 1.0 I&O Intake and Output 02/22/17 07:00 Intake Total 1000 ml Output Total 70 ml Balance 930 ml Intake Oral 200 ml IV Total 800 ml Output Urine Total 0 ml Drainage Total 70 ml # Voids 2 PATIENT HAS A MOE: No General: Alert, Oriented X3, No acute distress Abdomen: Soft, Other (RUDDY with serosanguineous output) Labs Laboratory Tests Test 02/21/17 04:40 02/22/17 05:35 White Blood Count 7.0 x10^3/uL (4.0-11.0) 8.8 x10^3/uL (4.0-11.0) Red Blood Count 3.68 x10^6/uL (3.50-5.40) 3.53 x10^6/uL (3.50-5.40) Hemoglobin 11.5 g/dL (12.0-15.5) 11.4 g/dL (12.0-15.5) Hematocrit 34.7 % (36.0-47.0) 32.7 % (36.0-47.0) Mean Corpuscular Volume 94 fL (79-100) 93 fL (79-100) Mean Corpuscular Hemoglobin 31 pg (25-35) 32 pg (25-35) Mean Corpuscular Hemoglobin Concent 33 g/dL (31-37) 35 g/dL (31-37) Red Cell Distribution Width 14.4 % (11.5-14.5) 14.6 % (11.5-14.5) Platelet Count 179 x10^3/uL (140-400) 185 x10^3/uL (140-400) Neutrophils (%) (Auto) 81 % (31-73) 79 % (31-73) Lymphocytes (%) (Auto) 13 % (24-48) 13 % (24-48) Monocytes (%) (Auto) 6 % (0-9) 8 % (0-9) Eosinophils (%) (Auto) 0 % (0-3) 0 % (0-3) Basophils (%) (Auto) 0 % (0-3) 0 % (0-3) Neutrophils # (Auto) 5.7 x10^3uL (1.8-7.7) 6.9 x10^3uL (1.8-7.7) Lymphocytes # (Auto) 0.9 x10^3/uL (1.0-4.8) 1.2 x10^3/uL (1.0-4.8) Monocytes # (Auto) 0.4 x10^3/uL (0.0-1.1) 0.7 x10^3/uL (0.0-1.1) Eosinophils # (Auto) 0.0 x10^3/uL (0.0-0.7) 0.0 x10^3/uL (0.0-0.7) Basophils # (Auto) 0.0 x10^3/uL (0.0-0.2) 0.0 x10^3/uL (0.0-0.2) Sodium Level 143 mmol/L (136-145) 141 mmol/L (136-145) Potassium Level 3.8 mmol/L (3.5-5.1) 3.9 mmol/L (3.5-5.1) Chloride Level 108 mmol/L (98-107) 107 mmol/L (98-107) Carbon Dioxide Level 24 mmol/L (21-32) 25 mmol/L (21-32) Anion Gap 11 (6-14) 9 (6-14) Blood Urea Nitrogen 16 mg/dL (7-20) 21 mg/dL (7-20) Creatinine 0.8 mg/dL (0.6-1.0) 0.9 mg/dL (0.6-1.0) Estimated GFR (Cockcroft-Gault) 72.4 63.2 BUN/Creatinine Ratio 20 (6-20) Glucose Level 109 mg/dL (70-99) 80 mg/dL (70-99) Calcium Level 8.1 mg/dL (8.5-10.1) 8.3 mg/dL (8.5-10.1) Total Bilirubin 3.6 mg/dL (0.2-1.0) 3.4 mg/dL (0.2-1.0) Direct Bilirubin 2.9 mg/dL (0.0-0.2) 2.9 mg/dL (0.0-0.2) Aspartate Amino Transf (AST/SGOT) 477 U/L (15-37) 351 U/L (15-37) Alanine Aminotransferase (ALT/SGPT) 698 U/L (14-59) 631 U/L (14-59) Alkaline Phosphatase 62 U/L (46-116) 63 U/L (46-116) Total Protein 5.8 g/dL (6.4-8.2) 6.3 g/dL (6.4-8.2) Albumin 3.0 g/dL (3.4-5.0) 2.9 g/dL (3.4-5.0) Albumin/Globulin Ratio 1.1 (1.0-1.7) Amylase Level 38 U/L (25-115) Lipase 71 U/L (73-393) Laboratory Tests Test 02/22/17 05:35 White Blood Count 8.8 x10^3/uL (4.0-11.0) Red Blood Count 3.53 x10^6/uL (3.50-5.40) Hemoglobin 11.4 g/dL (12.0-15.5) Hematocrit 32.7 % (36.0-47.0) Mean Corpuscular Volume 93 fL (79-100) Mean Corpuscular Hemoglobin 32 pg (25-35) Mean Corpuscular Hemoglobin Concent 35 g/dL (31-37) Red Cell Distribution Width 14.6 % (11.5-14.5) Platelet Count 185 x10^3/uL (140-400) Neutrophils (%) (Auto) 79 % (31-73) Lymphocytes (%) (Auto) 13 % (24-48) Monocytes (%) (Auto) 8 % (0-9) Eosinophils (%) (Auto) 0 % (0-3) Basophils (%) (Auto) 0 % (0-3) Neutrophils # (Auto) 6.9 x10^3uL (1.8-7.7) Lymphocytes # (Auto) 1.2 x10^3/uL (1.0-4.8) Monocytes # (Auto) 0.7 x10^3/uL (0.0-1.1) Eosinophils # (Auto) 0.0 x10^3/uL (0.0-0.7) Basophils # (Auto) 0.0 x10^3/uL (0.0-0.2) Sodium Level 141 mmol/L (136-145) Potassium Level 3.9 mmol/L (3.5-5.1) Chloride Level 107 mmol/L (98-107) Carbon Dioxide Level 25 mmol/L (21-32) Anion Gap 9 (6-14) Blood Urea Nitrogen 21 mg/dL (7-20) Creatinine 0.9 mg/dL (0.6-1.0) Estimated GFR (Cockcroft-Gault) 63.2 Glucose Level 80 mg/dL (70-99) Calcium Level 8.3 mg/dL (8.5-10.1) Total Bilirubin 3.4 mg/dL (0.2-1.0) Direct Bilirubin 2.9 mg/dL (0.0-0.2) Aspartate Amino Transf (AST/SGOT) 351 U/L (15-37) Alanine Aminotransferase (ALT/SGPT) 631 U/L (14-59) Alkaline Phosphatase 63 U/L (46-116) Total Protein 6.3 g/dL (6.4-8.2) Albumin 2.9 g/dL (3.4-5.0) Problem List Problems Medical Problems: (1) Choledocholithiasis Status: Acute (2) Transaminitis Status: Acute Assessment/Plan POD 1, l/s maribeth, liver biopsy continue supportive care Problems: EMIL WOOD MD Feb 22, 2017 12:40
[2017-02-22] MEDS: ONDANSETRON PF 4 MG/2 ML VIAL. IV PRN (13:53)
--- NOTE | 2017-02-22 16:08 | EKG ---
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
[2017-02-22] MEDS ORDERED: ENOXAPARIN 40 MG/0.4 ML SYRINGE. SQ SCH (19:00)
[2017-02-23 03:00] VITALS: BP 111/55
[2017-02-23 05:08] LABS: BASO % 1 % (0-3); EOS % 2 % (0-3); HEMATOCRIT 32.2 % (36.0-47.0); HEMOGLOBIN 10.7 g/dL (12.0-15.5); LYMPH % 32 % (24-48); MEAN CORPUSCULAR HEMOGLOBIN 31 pg (25-35); MEAN CORPUSCULAR HGB CONC 33 g/dL (31-37); MEAN CORPUSCULAR VOLUME 95 fL (79-100); MONO % 8 % (0-9); NEUT % 57 % (31-73); PLATELET COUNT 180 x10^3/uL (140-400); RED BLOOD COUNT 3.41 x10^6/uL (3.50-5.40); RED CELL DISTRIBUTION WIDTH 14.6 % (11.5-14.5); WHITE BLOOD COUNT 6.4 x10^3/uL (4.0-11.0)
[2017-02-23 05:45] LABS: ALBUMIN 2.6 g/dL (3.4-5.0); CALCIUM 7.8 mg/dL (8.5-10.1); CREATININE 0.9 mg/dL (0.6-1.0); DIRECT BILIRUBIN 2.5 mg/dL (0.0-0.2); GFR 63.2; POTASSIUM 4.1 mmol/L (3.5-5.1); TOTAL BILIRUBIN 2.9 mg/dL (0.2-1.0); TOTAL PROTEIN 5.5 g/dL (6.4-8.2)
[2017-02-23 07:00] VITALS: BP 127/71
[2017-02-23] MEDS: DOCUSATE SODIUM 100 MG CAPSULE. PO SCH (08:31)
[2017-02-23] MEDS: traMADol 50 MG TABLET PO PRN (08:31)
[2017-02-23 11:00] VITALS: BP 126/60
--- NOTE | 2017-02-23 12:06 | PDOC ---
SURGICAL PROGRESS NOTE Subjective tolerating diet no emesis, some nausea still present feeling better about dc home today Vital Signs Vital Signs Date Time Temp Pulse Resp B/P (MAP) Pulse Ox O2 Delivery O2 Flow Rate FiO2 02/23/17 11:00 98.1 74 18 126/60 (82) 94 Room Air 98.1 02/23/17 03:00 2.0 I&O Intake and Output 02/23/17 07:00 Intake Total 360 ml Output Total 1250 ml Balance -890 ml Intake Oral 360 ml Output Urine Total 1150 ml Drainage Total 100 ml # Voids 4 General: Alert, Oriented X3, Cooperative, No acute distress Abdomen: Soft, Other (ND, lap dressings dry, tristen serous ) Labs Laboratory Tests Test 02/22/17 05:35 02/23/17 04:50 White Blood Count 8.8 x10^3/uL (4.0-11.0) 6.4 x10^3/uL (4.0-11.0) Red Blood Count 3.53 x10^6/uL (3.50-5.40) 3.41 x10^6/uL (3.50-5.40) Hemoglobin 11.4 g/dL (12.0-15.5) 10.7 g/dL (12.0-15.5) Hematocrit 32.7 % (36.0-47.0) 32.2 % (36.0-47.0) Mean Corpuscular Volume 93 fL (79-100) 95 fL (79-100) Mean Corpuscular Hemoglobin 32 pg (25-35) 31 pg (25-35) Mean Corpuscular Hemoglobin Concent 35 g/dL (31-37) 33 g/dL (31-37) Red Cell Distribution Width 14.6 % (11.5-14.5) 14.6 % (11.5-14.5) Platelet Count 185 x10^3/uL (140-400) 180 x10^3/uL (140-400) Neutrophils (%) (Auto) 79 % (31-73) 57 % (31-73) Lymphocytes (%) (Auto) 13 % (24-48) 32 % (24-48) Monocytes (%) (Auto) 8 % (0-9) 8 % (0-9) Eosinophils (%) (Auto) 0 % (0-3) 2 % (0-3) Basophils (%) (Auto) 0 % (0-3) 1 % (0-3) Neutrophils # (Auto) 6.9 x10^3uL (1.8-7.7) 3.7 x10^3uL (1.8-7.7) Lymphocytes # (Auto) 1.2 x10^3/uL (1.0-4.8) 2.0 x10^3/uL (1.0-4.8) Monocytes # (Auto) 0.7 x10^3/uL (0.0-1.1) 0.5 x10^3/uL (0.0-1.1) Eosinophils # (Auto) 0.0 x10^3/uL (0.0-0.7) 0.1 x10^3/uL (0.0-0.7) Basophils # (Auto) 0.0 x10^3/uL (0.0-0.2) 0.0 x10^3/uL (0.0-0.2) Sodium Level 141 mmol/L (136-145) 142 mmol/L (136-145) Potassium Level 3.9 mmol/L (3.5-5.1) 4.1 mmol/L (3.5-5.1) Chloride Level 107 mmol/L (98-107) 108 mmol/L (98-107) Carbon Dioxide Level 25 mmol/L (21-32) 28 mmol/L (21-32) Anion Gap 9 (6-14) 6 (6-14) Blood Urea Nitrogen 21 mg/dL (7-20) 14 mg/dL (7-20) Creatinine 0.9 mg/dL (0.6-1.0) 0.9 mg/dL (0.6-1.0) Estimated GFR (Cockcroft-Gault) 63.2 63.2 Glucose Level 80 mg/dL (70-99) 88 mg/dL (70-99) Calcium Level 8.3 mg/dL (8.5-10.1) 7.8 mg/dL (8.5-10.1) Total Bilirubin 3.4 mg/dL (0.2-1.0) 2.9 mg/dL (0.2-1.0) Direct Bilirubin 2.9 mg/dL (0.0-0.2) 2.5 mg/dL (0.0-0.2) Aspartate Amino Transf (AST/SGOT) 351 U/L (15-37) 271 U/L (15-37) Alanine Aminotransferase (ALT/SGPT) 631 U/L (14-59) 508 U/L (14-59) Alkaline Phosphatase 63 U/L (46-116) 56 U/L (46-116) Total Protein 6.3 g/dL (6.4-8.2) 5.5 g/dL (6.4-8.2) Albumin 2.9 g/dL (3.4-5.0) 2.6 g/dL (3.4-5.0) Laboratory Tests Test 02/23/17 04:50 White Blood Count 6.4 x10^3/uL (4.0-11.0) Red Blood Count 3.41 x10^6/uL (3.50-5.40) Hemoglobin 10.7 g/dL (12.0-15.5) Hematocrit 32.2 % (36.0-47.0) Mean Corpuscular Volume 95 fL (79-100) Mean Corpuscular Hemoglobin 31 pg (25-35) Mean Corpuscular Hemoglobin Concent 33 g/dL (31-37) Red Cell Distribution Width 14.6 % (11.5-14.5) Platelet Count 180 x10^3/uL (140-400) Neutrophils (%) (Auto) 57 % (31-73) Lymphocytes (%) (Auto) 32 % (24-48) Monocytes (%) (Auto) 8 % (0-9) Eosinophils (%) (Auto) 2 % (0-3) Basophils (%) (Auto) 1 % (0-3) Neutrophils # (Auto) 3.7 x10^3uL (1.8-7.7) Lymphocytes # (Auto) 2.0 x10^3/uL (1.0-4.8) Monocytes # (Auto) 0.5 x10^3/uL (0.0-1.1) Eosinophils # (Auto) 0.1 x10^3/uL (0.0-0.7) Basophils # (Auto) 0.0 x10^3/uL (0.0-0.2) Sodium Level 142 mmol/L (136-145) Potassium Level 4.1 mmol/L (3.5-5.1) Chloride Level 108 mmol/L (98-107) Carbon Dioxide Level 28 mmol/L (21-32) Anion Gap 6 (6-14) Blood Urea Nitrogen 14 mg/dL (7-20) Creatinine 0.9 mg/dL (0.6-1.0) Estimated GFR (Cockcroft-Gault) 63.2 Glucose Level 88 mg/dL (70-99) Calcium Level 7.8 mg/dL (8.5-10.1) Total Bilirubin 2.9 mg/dL (0.2-1.0) Direct Bilirubin 2.5 mg/dL (0.0-0.2) Aspartate Amino Transf (AST/SGOT) 271 U/L (15-37) Alanine Aminotransferase (ALT/SGPT) 508 U/L (14-59) Alkaline Phosphatase 56 U/L (46-116) Total Protein 5.5 g/dL (6.4-8.2) Albumin 2.6 g/dL (3.4-5.0) Problem List Problems Medical Problems: (1) Choledocholithiasis Status: Acute (2) Transaminitis Status: Acute Assessment/Plan s/p lap maribeth, liver bx lfts improving drain serous ok to dc home with drain FU on monday for drain removal Problems: JEZ MEDINA APRN Feb 23, 2017 12:06
--- NOTE | 2017-02-23 12:35 | PDOC ---
Subjective: Subjective: Talked through bathroom door, feeling better. Objective: Objective: RN called - orders to DC. Vital Signs: Vital Signs Date Time Temp Pulse Resp B/P (MAP) Pulse Ox O2 Delivery O2 Flow Rate FiO2 02/23/17 11:00 98.1 74 18 126/60 (82) 94 Room Air 98.1 02/23/17 03:00 2.0 Labs: Laboratory Tests Test 02/23/17 04:50 White Blood Count 6.4 x10^3/uL Red Blood Count 3.41 x10^6/uL Hemoglobin 10.7 g/dL Hematocrit 32.2 % Mean Corpuscular Volume 95 fL Mean Corpuscular Hemoglobin 31 pg Mean Corpuscular Hemoglobin Concent 33 g/dL Red Cell Distribution Width 14.6 % Platelet Count 180 x10^3/uL Neutrophils (%) (Auto) 57 % Lymphocytes (%) (Auto) 32 % Monocytes (%) (Auto) 8 % Eosinophils (%) (Auto) 2 % Basophils (%) (Auto) 1 % Neutrophils # (Auto) 3.7 x10^3uL Lymphocytes # (Auto) 2.0 x10^3/uL Monocytes # (Auto) 0.5 x10^3/uL Eosinophils # (Auto) 0.1 x10^3/uL Basophils # (Auto) 0.0 x10^3/uL Sodium Level 142 mmol/L Potassium Level 4.1 mmol/L Chloride Level 108 mmol/L Carbon Dioxide Level 28 mmol/L Anion Gap 6 Blood Urea Nitrogen 14 mg/dL Creatinine 0.9 mg/dL Estimated GFR (Cockcroft-Gault) 63.2 Glucose Level 88 mg/dL Calcium Level 7.8 mg/dL Total Bilirubin 2.9 mg/dL Direct Bilirubin 2.5 mg/dL Aspartate Amino Transf (AST/SGOT) 271 U/L Alanine Aminotransferase (ALT/SGPT) 508 U/L Alkaline Phosphatase 56 U/L Total Protein 5.5 g/dL Albumin 2.6 g/dL PE: no exam, was in restroom A/P: S/p ERCP, sphincterotomy S/p cholecystectomy, liver biopsy Elevated LFTs CRC screening -- Follow-up w/ surgery/liver biopsy results. Needs outpt screening colonoscopy - our office will contact. CARMELO DUONG Feb 23, 2017 12:35
--- NOTE | 2017-02-23 12:38 | PDOC3 ---
Discharge Summary [facility] Date of Admission: Feb 20, 2017 Discharge Date: Feb 23, 2017 Admitting Diagnosis 1. abd pain with acute cholecystitis 2. cholelithiasis s/p ERCP with sphincterectomy 3. elevated transaminitis 4. HLD 5. overweight plan: GI, sx consulted ERCP 02/20, lap maribeth 02/21 regular diet ivf pain control gi ppx stool softner, encourage ambulate labs tmr fu with sx to see if remove RUDDY today or tmr plan dc tmr History of Present Illness History of Present Illness pain better LFT better slightly better post sx no bm, has flatus has 1 RUDDY with 70cc sangueous fluid overnight Vitals Vitals Vital Signs Date Time Temp Pulse Resp B/P (MAP) Pulse Ox O2 Delivery O2 Flow Rate FiO2 02/22/17 10:15 16 Room Air 02/22/17 07:00 98.4 74 107/54 (71) 90 98.4 02/22/17 03:43 1.0 Physical Exam Problems: Final Diagnosis CONSULTS gi sx Procedures ERCP LAP Maribeth, liver bx Brief Hospital Course Patient is a 61 year old female presenting to the emergency department for evaluation of epigastric and right upper quadrant abdominal pain for 3 days. Pt said she ate some chicken gizzards on Sat, then started to have epigastric pain, 10/10. no radiating, has N./V, no bloody, nonbilious emesis, no diarrhea , chronic mild constipation. No fever, chills, no h/o gastric ulcer, or gallstone, but takes aleeve daily. CT showed acute choley and CBD stone 3 mm, high LFT. pt got ERCP no stone found, then underwent lap cholecystectomy and liver bx, has 1 RUDDY drainage , still has 100cc sangueous liquid overnight, LFT better, no resolved. Pt feels ok, no BM, has Flatus, mild abd pain. dc home with the RUDDY Drainage, fu with sx on Monday, for liver bx result and LFT. dc time 35min Physical Exam has 1 RUDDY with 70cc sangueous fluid overnight General: Alert, Oriented X3, Cooperative Heart: Regular rate, Normal S1, Normal S2 Lungs: Clear Abdomen: Normal bowel sounds, Soft, Other (clean sx wound) Extremities: No clubbing, No cyanosis Problems: Disposition home CONDITION AT DISCHARGE: Improved Diet gi soft Follow Up sx on Monday ALICIA TORRES MD Feb 23, 2017 12:38
[2017-02-23] MEDS: oxyCODONE/APAP 5/325 1 TAB TABLET PO PRN (12:50)
[2017-02-23] MEDS: ONDANSETRON PF 4 MG/2 ML VIAL. IV PRN (12:52)
--- NOTE | 2017-02-23 13:03 | PATHOLOGY ---
PATHOLOGY REPORT * * * * * * * * FINAL DIAGNOSIS: A. Gallbladder, laparoscopic cholecystectomy: - Acute and chronic cholecystitis with focal hemorrhagic mucosal necrosis. B. Liver biopsy: - Results to be reported separately. COMMENT: There are no calculi identified within the gallbladder lumen or specimen container. Sections of the gallbladder show acute and chronic inflammation with foci of hemorrhagic mucosal necrosis. There is no evidence of malignancy. The liver biopsy is sent for consultation to [facility], the results of which will be reported separately. (JPM:; d/t: 02/23/17) Special Stains Performed: Trichrome, reticulin, iron stain, PAS without diastase, PAS with diastase. REPORT ELECTRONICALLY SIGNED BY: Jorge Jackson M.D. DATE/TIME: 02/23/2017 13:02 * * * * * * * * GROSS PATHOLOGY: A. Received in formalin labeled "Louise Hale, gallbladder and contents," is a 7.8 x 3.8 x 2.1 cm, intact gallbladder with pink-sahu serosal surfaces. Opening the gallbladder reveals a velvety, light brown mucosa with adherent light durand to red-brown friable material admixed with mucoid material, and an average wall thickness of 0.1 cm. Calculi are not present and no masses are noted grossly. Lineman sections from the body and fundus are submitted along with the proximal margin in cassette A1. B. Received in formalin labeled "Louise Hale, liver biopsy," are four distinct needle cores of white-durand soft tissue ranging from 0.4 to 1.2 cm in length, which are submitted entirely in cassette B1. (CAA; 02/22/2017) INITIAL CPT CODE(S): A; 29119 B; 95047, 77595, 46168, 83248, 42290, 97810 Professional services performed by [employer] [employer] at [address] [address] Technical services performed by [employer] at [address] [place] [address], [address], [place] [address]. SPECIMEN(S) RECEIVED: A.Gallbladder and contents B.Liver, needle biopsy CLINICAL HISTORY: Cholecystitis PATIENT: LOUISE HALE /AGE: 3 1955 (Age: 61) PATIENT #: [id number] ALT CASE #: SPECIMEN COLLECTION DATE: 02/21/2017 SPECIMEN RECEIVED DATE: 02/21/2017 [facility] - [address] [place] [address] - PHONE: [phone] * * * END OF REPORT * * *
== END 2017-02-23 13:30 | disposition home or self-care (01) | DRG 418 ==
LOC: ER 05:39 → 4 NORTH 08:08
PROVIDERS: ADMIT Internal Medicine; ATTEND Internal Medicine
PROC: 0F798ZZ Dilation of Common Bile Duct, Via Natural or Artificial Opening Endoscopic (ICD-10-PCS; 2017-02-20)
PROC: BF101ZZ Fluoroscopy of Bile Ducts using Low Osmolar Contrast (ICD-10-PCS; 2017-02-20)
PROC: 0F7C8ZZ Dilation of Ampulla of Vater, Via Natural or Artificial Opening Endoscopic (ICD-10-PCS; 2017-02-20)
PROC: 0FB04ZX Excision of Liver, Percutaneous Endoscopic Approach, Diagnostic (ICD-10-PCS; 2017-02-21)
PROC: BF121ZZ Fluoroscopy of Gallbladder using Low Osmolar Contrast (ICD-10-PCS; 2017-02-21)
PROC: 0FT44ZZ Resection of Gallbladder, Percutaneous Endoscopic Approach (ICD-10-PCS; principal; 2017-02-21 14:00)
DX: K80.42 Calculus of bile duct with acute cholecystitis without obstruction (principal); R17 Unspecified jaundice; E66.3 Overweight; E78.5 Hyperlipidemia, unspecified; K59.00 Constipation, unspecified; R74.0 Nonspecific elevation of levels of transaminase and lactic acid dehydrogenase [LDH]; R79.89 Other specified abnormal findings of blood chemistry; D64.9 Anemia, unspecified
CPT/HCPCS: 36415; 74177; 74300; 74328; 76705; 80048; 80053; 80076; 82150; 82248; 82550; 83690; 83735; 83880; 84484; 85027; 85610; 85730; 88304; 88307; 88313; 93005; 96365; 96375; C1726; C1757; C1769; C1782; C9113; G0480; J0330; J1100; J1170; J1610; J1650; J2270; J2405; J2543; J2704; J2710; J3010; J3490; J7030; Q9967; 99285-25

== ENCOUNTER → 2017-06-14 | Outpatient (CLI) | payer OTHER ==
--- NOTE | 2017-06-14 11:21 | KCIC ---
EXAMINATION: Magnetic resonance imaging (MRI) of the lumbar spine without contrast HISTORY: Low back pain. Lumbar radiculopathy. TECHNIQUE: Multiplanar multi-weighted MRI of the lumbar spine was performed without intravenous contrast using the standard lumbar spine protocol. Contrast information: None administered COMPARISON: None available. FINDINGS: There is minimal retrolisthesis of L1 on L2. There is grade 1 anterolisthesis of L4 on L5. Modic type II endplate degenerative changes are identified at L2-L3. There are no compression fractures. The conus medullaris terminates at the level of L1-L2. The distal spinal cord signal intensity is normal. There is disc height loss at T12-L1, L1-L2 and L2-L3. There is disc desiccation at all levels of the lumbar spine sparing L5-S1. There is a 1.3 cm cystic lesion in the right sacral plexus. There is a 7 mm cystic lesion in the left sacral plexus. The aorta is normal. L1-L2: Minimal disc bulge. There is mild facet arthropathy. There is mild neuroforaminal stenosis. There is no spinal canal stenosis. L2-L3: Mild disc bulge. There is moderate facet arthropathy. There is mild neuroforaminal stenosis. There is mild spinal canal stenosis. L3-L4: There is a disc bulge. There is moderate to severe facet arthropathy. There is moderate right and mild left neuroforaminal stenosis. There is moderate spinal canal stenosis. L4-L5: There is diffuse disc bulge. There is severe facet arthropathy with ligamentum flavum infolding. There is moderate right and moderate to severe left neuroforaminal stenosis. There is severe spinal canal stenosis. L5-S1: There is diffuse disc bulge There is severe facet arthropathy. There is mild neuroforaminal stenosis. There is no spinal canal stenosis. IMPRESSION: 1. Moderate to advanced degenerative changes of the lumbar spine most prominent at L4-L5 with anterolisthesis of L4 on L5, diffuse disc bulge, severe facet arthropathy and ligamentum flavum infolding resulting in moderate right and moderate to severe left neural foraminal stenosis as well as severe spinal canal stenosis. 2. Cystic foci are identified in the sacral plexus bilaterally measuring up to 1.3 cm. Findings likely represent perineural diverticula. However, recommend contrast-enhanced examination of the pelvis for further evaluation as peripheral nerve sheath tumors can have similar appearance. Electronically signed by: Marietta Stout MD (06/14/2017 11:18 AM) [id number]
== END | disposition home or self-care (01) ==
LOC: KCIC MRI 10:20
PROVIDERS: ATTEND Internal Medicine
DX: M47.896 Other spondylosis, lumbar region (principal); E78.5 Hyperlipidemia, unspecified
CPT/HCPCS: 72148

== ENCOUNTER → 2017-07-27 | Outpatient (CLI) | payer OTHER ==
[~2017-07-27] MED LIST: PRAV40TA2 PO; SERT50TA PO
--- NOTE | 2017-07-27 12:29 | PAIN ---
DATE OF SERVICE: 07/27/2017 INITIAL CONSULTATION FOR PAIN CLINIC CHIEF COMPLAINT: Low back and left lower extremity pain. HISTORY OF PRESENT ILLNESS: This is a 61-year-old female with history of pain in the low back and left leg since about 2015, gradually increasing, not a result of any specific injury or accident that she is aware of but has been gradually worsening across the low back into the left posterior gluteus, buttocks and into the lateral thigh, medial thigh and medial knee on the left side with a radiating pattern. The patient reports this awakens her from sleep about 3-4 times at night, does not affect her bowel or bladder control or ability to walk, but it is worse with walking, standing, change in positions, better with sitting or lying down. The patient has tried chiropractic in the past as well as physical therapies she is doing on her own and exercises now at home, which seemed to help slightly, but she has been doing them fairly religiously every day and she likes to stay very active and she still has some significant pain in the low back and left leg. The patient reports it is a sharp pain, intermittent in intensity but radiating, can be stabbing and shooting at times with aching pain as well in the back. The patient did have MRI scan of the lumbar spine showing severe facet arthropathy and disk bulge at L4-L5 with moderate right and [id number] left neural foraminal stenosis and severe spinal canal stenosis at that level and also disk bulge at L3-L4 with moderate neural foraminal stenosis on the right and left. The patient rates her disability rating from 0-10, 10 being the worst, is 5 with family and home responsibilities, recreation and occupation, 0 with self care and 3 with life support activities. The patient reports no loss of motor function but significant fatigability with the left leg when she is walking and standing. PAST MEDICAL HISTORY: Significant for arthritis, hepatitis A in the past, hyperlipidemia and quit smoking 38 years ago. PAST SURGICAL HISTORY: Previous surgery includes tonsillectomy as a child and cholecystectomy in 2017. CURRENT MEDICATIONS: Pravastatin and sertraline. ALLERGIES: The patient has no known drug allergies. FAMILY HISTORY: Significant for cancers. SOCIAL HISTORY: The patient does not smoke, does not drink alcohol, is , lives with her spouse locally in [place], [place]. REVIEW OF SYSTEMS: The patient's review of systems is positive for those items mentioned in history of present illness. All systems reviewed and otherwise negative. It is complete, full and well documented on the patient's chart. PHYSICAL EXAMINATION: VITAL SIGNS: The patient's blood pressure is 138/80, pulse is 71, respirations 16, temperature 98.2 degrees Fahrenheit, height is 5 feet 2 inches and weight is 168 pounds. GENERAL: The patient is awake, alert, oriented, appropriate and very pleasant demeanor. HEENT: Head shows normocephalic and atraumatic. Extraocular movements are intact and symmetrical. Oral cavity shows mucous membranes moist and pink. Dentition is intact. NECK: Shows anterior throat supple without palpable lymphadenopathy noted. Swallow reflex is symmetrical. CHEST: Shows normal with inspection. Breath sounds clear to auscultation bilaterally. HEART: Shows S1 and S2 clear. No murmurs auscultated. ABDOMEN: Soft, nontender and nondistended. No palpable organomegaly is noted. No rebound or guarding demonstrated. BACK: Shows spine grossly in the midline, normal-appearing cervical lordotic curvature, thoracic kyphotic curvature and lumbar lordotic curvature. No previous bruises, lesions, rashes or scars are noted. Lumbar paraspinous muscles show symmetrical with inspection and palpation shows some moderate tenderness throughout the upper, middle and lower distribution but is symmetrical and only diffusely tender but to moderate extent without radiation. No tenderness over the sacrum or sacroiliac regions and the posterior superior iliac spine, some tenderness over the spinous processes or the sacrum itself. The patient shows good rotational motion of the lumbar spine, both laterally as well as extension and flexion greater than 10 degrees and forward flexion at 45 degrees without significant pain reported. The patient's lower extremities show deep tendon reflexes 2+ in the patellar, 1+ tendo-calcaneus tendons. Motor exam is strong with 5/5 dorsiflexion, extension, quadriceps and hamstring flexion and is symmetrical bilaterally. Peripheral pulses are 2+ posterior tibial and dorsalis pedis pulses. No peripheral edema is noted. No clubbing. No cyanosis. Straight leg raise noted to be negative on the right and slightly positive on the left at about 45 degrees but decreased and relieved with knee flexion. Gaenslen's and Mio's maneuvers are negative bilaterally. The patient is able to stand, stand on her toes without difficulty or loss of balance, is able to walk with a normal gait, not using any assistive devices. IMPRESSION: 1. This is a 61-year-old female with probably 1 year history of increasing pain in the low back, left lower extremity and L4-L5 dermatomal distribution is noted with MRI scan of the lumbar spine as noted with significant stenosis at L4-L5 level on the left. 2. MRI scan of the lumbar spine as noted with significant stenosis at L4-L5 level on the left. 3. History of arthritis. PLAN: Options were discussed with the patient including conservative medical management, physical therapy, interventional techniques since she has done some therapy and is doing stretching and strengthening exercises on her own already. She would like to pursue interventional techniques. We discussed a lumbar epidural steroid injection using description as well as anatomical models to describe the procedure. The patient will wait for preauthorization with her insurance provider. I will try Medrol Dosepak in the meantime. The patient was given instruction as well as side effects to be aware with the medications and will follow up in approximately one week. We will plan on lumbar epidural steroid injection at that time. MARLENE HALE MD DR: JENNIFER/robi JOB#: [id number] / [id number] EDGAR Tejeda MD
== END | disposition home or self-care (01) ==
LOC: PNCL 07:39
PROVIDERS: ATTEND Anesthesiology
DX: M48.061 Spinal stenosis, lumbar region without neurogenic claudication (principal)
CPT/HCPCS: 99214

== ENCOUNTER → 2017-08-10 | Outpatient (CLI) | payer OTHER ==
[~2017-08-10] MED LIST changes: +IOHEXOL 180 MG/ML 10 ML VIAL. ONE; +methylPREDNISolone ACETATE 40 MG/ML VIAL. ONE; +methylPREDNISolone ACETATE 80 MG/ML VIAL. ONE
--- NOTE | 2017-08-10 13:10 | PAIN ---
DATE OF SERVICE: 08/10/2017 DIAGNOSES: Lumbar radiculopathy with lumbar degenerative disk disease, lumbar spinal stenosis. HISTORY OF PRESENT ILLNESS: The patient is a 61-year-old female who returns for followup status post initial evaluation and preauthorization for lumbar epidural steroid injection. The patient reports she did very well with the Medrol Dosepak. The pain was almost 100% improved with this for about 5 days, but once it was completed, the pain returned in the low back, left lower extremity as was previously, mostly the posterior gluteus, lateral thigh, lateral anterior medial thigh, medial lower leg as it was previously. The patient reports a shooting pain, aching, dull, alternating, worse with standing, walking, changing positions, better with sitting down or lying down, but it has been awaking her again from sleep, although did not while she was taking her Medrol pack, about every 5 hours if she lays on her left side. The patient reports no new motor or sensory deficits, no new bowel or bladder incontinence. Rates her pain as a 7 on a scale 10 at its worst, 6 on average and a 5 on a scale of 10 at its least, and is a 5 today. The patient reports no new motor or sensory deficits, no bowel or bladder incontinence or other complaints. PHYSICAL EXAMINATION: VITAL SIGNS: The patient's blood pressure is 146/74, pulse 101, respirations 18, temperature 97.9 degrees Fahrenheit, height is 5 feet 2 inches, weight 166 pounds. GENERAL: The patient is awake, alert, oriented, appropriate, very pleasant demeanor. HEENT: Head shows normocephalic, atraumatic. Extraocular muscles are intact and symmetrical. Oral cavity: Mucous membranes are moist and pink. Dentition is intact. NECK: Shows anterior throat is supple without palpable lymphadenopathy noted. Swallow reflex symmetrical. CHEST: Shows normal with inspection. Breath sounds clear to auscultation bilaterally. HEART: Shows S1, S2 clear. No murmurs auscultated. ABDOMEN: Soft, nontender, nondistended. No palpable organomegaly is noted. No rebound or guarding demonstrated. BACK: Shows spine grossly in the midline, normal appearing thoracic kyphosis, lumbar lordotic curvature. Lumbar paraspinous muscle shows symmetrical on inspection, with palpation shows some [id number] tenderness in the inferior aspect of the lumbar paraspinous muscles as well as in the middle, but only to a moderate extent. No radiation. No tenderness over the sacrum or sacroiliac regions or the spinous processes. The patient has good rotational motion of lumbar spine both laterally as well as extension and flexion without difficulty. EXTREMITIES: Lower extremities show deep tendon reflexes 2+ in the patellar, 1+ tendo calcaneus tendons. Motor exam is strong with 5/5 dorsiflexion, extension, quadriceps and hamstring flexion. Peripheral pulses are 1+ posterior tibial. No peripheral edema is noted. Options were discussed with the patient. The patient's old chart was reviewed as her current medication regimen updated. Current review of systems updated today as well. We will proceed with a lumbar epidural steroid injection today with fluoroscopic guidance. Risks were again discussed including, but not limited to bleeding, infection, possibility of epidural hematoma, subsequent neurologic compromise, dural puncture headaches, spinal cord and/or nerve damage, side effects of steroid medication and poor results regarding pain control. The patient understands and wished to proceed. The patient will return to clinic in approximately 2 weeks for followup. She was counseled as to return appointment, activity level and side effects to be aware of. DIAGNOSES: Lumbar radiculopathy with lumbar spinal stenosis, lumbar degenerative disk disease. PROCEDURE: Lumbar epidural steroid injection, translaminar approach L4-L5 level using C-arm fluoroscopic guidance under sterile prep and drape using local anesthetic. MEDICATION INJECTED: A total of 120 mg of Depo-Medrol plus 10 mL of preservative-free normal saline and 2 mL of Isovue for contrast. CONDITION AT DISCHARGE: Stable. The patient tolerated the procedure well, had no complications. MARLENE HALE MD DR: JENNIFER/robi JOB#: [id number] / [id number]
== END | disposition home or self-care (01) ==
LOC: PNCL 07:49
PROVIDERS: ATTEND Anesthesiology
DX: M51.16 Intervertebral disc disorders with radiculopathy, lumbar region (principal); M48.061 Spinal stenosis, lumbar region without neurogenic claudication
CPT/HCPCS: 62323; J1030; J1040

== ENCOUNTER → 2017-09-22 | Outpatient (CLI) | payer OTHER | END | disposition home or self-care (01) | LOC: PNCL 09:49 | DX: M51.16 Intervertebral disc disorders with radiculopathy, lumbar region (principal); M48.061 Spinal stenosis, lumbar region without neurogenic claudication | CPT/HCPCS: G0463 ==

== ENCOUNTER → 2017-10-06 | Outpatient (CLI) | payer OTHER ==
[~2017-10-06] MED LIST changes: +IOHEXOL 180 MG/ML 10 ML VIAL.; -IOHEXOL 180 MG/ML 10 ML VIAL. ONE; -PRAV40TA2 PO; -SERT50TA PO; +methylPREDNISolone ACETATE 40 MG/ML VIAL.; -methylPREDNISolone ACETATE 40 MG/ML VIAL. ONE; +methylPREDNISolone ACETATE 80 MG/ML VIAL.; -methylPREDNISolone ACETATE 80 MG/ML VIAL. ONE
== END ==
LOC: PNCL 09:54
DX: M51.16 Intervertebral disc disorders with radiculopathy, lumbar region (principal); M48.061 Spinal stenosis, lumbar region without neurogenic claudication
CPT/HCPCS: 62323; J1030; J1040

== ENCOUNTER → 2017-10-25 | Outpatient (CLI) | payer OTHER | END | disposition home or self-care (01) | LOC: KCIC MAMMO 12:14 | DX: Z12.31 Encounter for screening mammogram for malignant neoplasm of breast (principal) | CPT/HCPCS: 77067 ==

== ENCOUNTER → 2017-10-27 | Outpatient (CLI) | payer OTHER | END | disposition home or self-care (01) | LOC: PNCL 08:41 | DX: M51.16 Intervertebral disc disorders with radiculopathy, lumbar region (principal); M48.061 Spinal stenosis, lumbar region without neurogenic claudication | CPT/HCPCS: 99212 ==

== ENCOUNTER → 2017-12-08 | Outpatient (CLI) | payer OTHER | END | disposition home or self-care (01) | LOC: PNCL 08:57 | DX: M51.16 Intervertebral disc disorders with radiculopathy, lumbar region (principal); M48.061 Spinal stenosis, lumbar region without neurogenic claudication; Z98.890 Other specified postprocedural states | CPT/HCPCS: 99212 ==

== ENCOUNTER → 2017-12-22 | Outpatient (CLI) | payer OTHER | END | disposition home or self-care (01) | LOC: PNCL 08:00 | DX: M51.16 Intervertebral disc disorders with radiculopathy, lumbar region (principal); M48.061 Spinal stenosis, lumbar region without neurogenic claudication | CPT/HCPCS: 62323; J1030; J1040; Q9965 ==

== ENCOUNTER → 2018-02-07 | Outpatient (CLI) | payer OTHER | END | disposition home or self-care (01) | LOC: KCIC 10:22 | DX: M43.16 Spondylolisthesis, lumbar region (principal); M51.36 Other intervertebral disc degeneration, lumbar region; G89.29 Other chronic pain | CPT/HCPCS: 72100 ==

== ENCOUNTER → 2018-02-15 | Outpatient (CLI) | payer OTHER | END | disposition home or self-care (01) | LOC: KCIC MRI 15:07 | DX: M48.061 Spinal stenosis, lumbar region without neurogenic claudication (principal); M51.36 Other intervertebral disc degeneration, lumbar region; M51.26 Other intervertebral disc displacement, lumbar region; M12.88 Other specific arthropathies, not elsewhere classified, other specified site | CPT/HCPCS: 72148 ==

== ENCOUNTER → 2018-04-16 | Outpatient (CLI) | payer OTHER ==
[2018-04-16 15:46] LABS: ADD MAN DIFF? NO
[2018-04-16 15:52] LABS: BASO # 0.1 x10^3/uL (0.0-0.2); BASO % 1 % (0-3); EOS # 0.2 x10^3/uL (0.0-0.7); EOS % 2 % (0-3); HEMATOCRIT 40.7 % (36.0-47.0); HEMOGLOBIN 13.9 g/dL (12.0-15.5); LYMPH # 2.8 x10^3/uL (1.0-4.8); LYMPH % 39 % (24-48); MEAN CORPUSCULAR HEMOGLOBIN 32 pg (25-35); MEAN CORPUSCULAR HGB CONC 34 g/dL (31-37); MEAN CORPUSCULAR VOLUME 94 fL (79-100); MONO # 0.5 x10^3/uL (0.0-1.1); MONO % 7 % (0-9); NEUT # 3.7 x10^3uL (1.8-7.7); NEUT % 51 % (31-73); PLATELET COUNT 259 x10^3/uL (140-400); RED BLOOD COUNT 4.31 x10^6/uL (3.50-5.40); RED CELL DISTRIBUTION WIDTH 13.3 % (11.5-14.5); WHITE BLOOD COUNT 7.2 x10^3/uL (4.0-11.0)
[2018-04-16 16:04] LABS: INR 0.9 (0.8-1.1); PARTIAL THROMBOPLASTIN TIME 30 SEC (24-38); PROTHROMBIN TIME PATIENT 12.1 SEC (11.7-14.0)
[2018-04-16 16:09] LABS: ALBUMIN 4.3 g/dL (3.4-5.0); ALBUMIN/GLOBULIN RATIO 1.3 (1.0-1.7); ALK PHOS 40 U/L (46-116); ALT (SGPT) 15 U/L (14-59); ANION GAP 9 (6-14); AST (SGOT) 18 U/L (15-37); BLOOD UREA NITROGEN 18 mg/dL (7-20); BUN/CREATININE RATIO 18 (6-20); CALCIUM 9.6 mg/dL (8.5-10.1); CARBON DIOXIDE 28 mmol/L (21-32); CHLORIDE 106 mmol/L (98-107); GFR 55.8; GLUCOSE 98 mg/dL (70-99); POTASSIUM 5.1 mmol/L (3.5-5.1); SODIUM 143 mmol/L (136-145); TOTAL BILIRUBIN 0.5 mg/dL (0.2-1.0); TOTAL PROTEIN 7.6 g/dL (6.4-8.2)
[2018-04-17 00:15] LABS: MRSA BY PCR Negative (Negative)
== END | disposition home or self-care (01) ==
LOC: SURGPAT 13:00
DX: M48.061 Spinal stenosis, lumbar region without neurogenic claudication (principal); M43.16 Spondylolisthesis, lumbar region; E78.5 Hyperlipidemia, unspecified; Z86.2 Personal history of diseases of the blood and blood-forming organs and certain disorders involving the immune mechanism
CPT/HCPCS: 36415; 80053; 85025; 85610; 85730; 87641

== ENCOUNTER 2018-04-23 05:55 | Inpatient (IN) | payer OTHER ==
--- NOTE | 2018-04-20 16:41 | PREOP HP ---
DATE OF SERVICE: 04/23/2018 HISTORY OF PRESENT ILLNESS: The patient is a pleasant 62-year-old who has difficulty with back, buttock and hip pain. When I saw her in 07/2017, I referred her for lumbar epidural steroid injections. She reports that the steroids did help her for a few months, but the pain has returned and it has become severe. She rates her pain as a 7/10 now and takes Aleve to help with that. Standing, walking and any activity increase her pain. Lying down helps her. PAST MEDICAL HISTORY: Arthritis, tonsillitis. PAST SURGICAL HISTORY: Cholecystectomy in 2017. FAMILY HISTORY: Cancer. SOCIAL HISTORY: Retired. . Walks rarely for exercise. Denies substance abuse. Denies tobacco use. ALLERGIES: NO KNOWN DRUG ALLERGIES. CURRENT MEDICATIONS: Sertraline, pravastatin, Aleve, aspirin. REVIEW OF SYSTEMS: A 12-point review of systems was obtained and is noncontributory except for that mentioned above. PHYSICAL EXAMINATION: NEUROSURGERY EXAMINATION: GENERAL APPEARANCE: Alert, pleasant, no acute distress. HEAD: Normocephalic and atraumatic. SKIN: Warm and dry. MUSCULOSKELETAL: Lumbar paraspinal muscle bulk is normal, restricted range of motion of the lumbar spine, [id number] tenderness of lower lumbar spine with palpation, normal range of motion of the lower extremities bilaterally except for mild pain bilaterally with internal and external rotation of the hips. EXTREMITIES: No clubbing, cyanosis, or edema. NEUROLOGIC: Alert and oriented x 3, normal recent and remote memory. Strength 5/5 in bilateral lower extremities, sensory was intact to light touch in the lower extremities bilaterally, reflexes were trace and symmetric in bilateral lower extremities, negative straight leg raising bilaterally, normal gait. IMAGING: I reviewed her lumbar MRI scan. On that study, there is severe lumbar stenosis at L4-L5 along with grade 1 anterolisthesis of L4 on L5 and moderate stenosis at L3-L4. There is motion noted on flex/ ext x rays. ASSESSMENT/ PLAN: My recommendation at this point is for the patient to undergo lumbar laminectomy at L3-L4 and L4-L5 with posterior instrumentation and fusion at L4-L5 and an OLIF at L4-L5. Procedure and the risks involved were discussed with the patient. She would like to proceed with the surgery. We will make the arrangements. HOLLY ORDOÑEZ MD DR: EDGAR/robi JOB#: [id number] / [id number] NICOLETTE
[~2018-04-23] VITALS: Ht 157.5 cm; Wt 74.8 kg
[2018-04-23] VITALS (10 sets, daily range): BP systolic 79–113; BP diastolic 38–65
[~2018-04-23 05:55] MED LIST changes: +GELATIN SPONGE SIZE 100. ONE; -IOHEXOL 180 MG/ML 10 ML VIAL.; +KETOROLAC 60 MG/2 ML INJ FOR OR. ONE; +NAPR220T70 PO; +PRAV40TA2 PO; +SERT50TA PO; +THROMBIN TOPICAL 20,000 UNIT SPRAY.SYRN KIT TP ONE; -methylPREDNISolone ACETATE 40 MG/ML VIAL.; -methylPREDNISolone ACETATE 80 MG/ML VIAL.
[2018-04-23] MEDS ORDERED: BUPIVAC MPF-EPI 0.5%-1:200000 30 ML VIAL. INJ ONE (06:00)
[2018-04-23] MEDS ORDERED: BACITRACIN 50,000 UNIT in IV NORMAL SALINE 1000ML BAG 1,000 ML IRR ONE (06:00)
[2018-04-23] MEDS ORDERED: PROCHLORPERAZINE 10 MG/2 ML VIAL. IV PRN (07:00)
[2018-04-23] MEDS ORDERED: IV RINGERS,LACTATED 1000ML 1,000 ML IV SCH (07:00)
[2018-04-23] MEDS ORDERED: ONDANSETRON PF 4 MG/2 ML VIAL. IV PRN ×2 (07:00→10:45)
[2018-04-23] MEDS ORDERED: LIDOCAINE 1% PF 2 ML VIAL. ID PRN (07:00)
[2018-04-23] MEDS ORDERED: fentaNYL PF VIAL 100 MCG/2 ML VIAL IV PRN ×2 (07:00→10:45)
[2018-04-23] MEDS ORDERED: PROPOFOL 100 ML IV ONE (07:06)
[2018-04-23] MEDS ORDERED: ROCURONIUM 50 MG/5 ML VIAL. ONE (08:12)
[2018-04-23] MEDS ORDERED: GLYCOPYRROLATE 1 MG/5 ML VIAL. ONE ×2 (08:12→08:13)
[2018-04-23] MEDS ORDERED: DESFLURANE > 120 MINUTES IH ONE (08:14)
[2018-04-23] MEDS ORDERED: DEXAMETHASONE SOD PHOS 20 MG/5 ML VIAL. ONE (08:28)
[2018-04-23] MEDS ORDERED: KETOROLAC 30 MG/ML INJ FOR OR. INJ ONE (08:28)
[2018-04-23] MEDS ORDERED: PHENYLEPHRINE 10 MG/ML VIAL. ONE ×2 (08:28)
[2018-04-23] MEDS ORDERED: ONDANSETRON PF 4 MG/2 ML VIAL. ONE (08:28)
[2018-04-23] MEDS ORDERED: REMIFENTANIL 2 MG VIAL. IV ONE ×2 (08:30→12:00)
--- NOTE | 2018-04-23 08:35 | RAD ---
CT scan of the lumbar spine without contrast 04/23/2018 CLINICAL HISTORY: Lumbar radiculopathy. TECHNIQUE: Unenhanced, contiguous, 0.625 mm axial sections were obtained through the lumbar spine. 1 mm reconstructed axial and 3 mm sagittal and coronal reconstructed images were obtained. This study was performed to facilitate surgical planning/treatment. One or more of the following individualized dose reduction techniques were utilized for this study: 1. Automated exposure control. 2. Adjustment of the mA and/or kV according to patient size. 3. Use of iterative reconstruction technique. FINDINGS: Comparison is made to an MRI of the lumbar spine dated 02/15/2018. Very mild S-shaped curvature of the thoracolumbar spine is seen on the sagittal and coronal reconstructed images. Mild to moderate anterolisthesis of L4 in relation to L5 is seen. Degenerative changes are seen involving the lower thoracic and throughout the lumbar disc spaces consisting of varying degrees of disc space narrowing, vertebral endplate sclerosis and mild to moderate anterior vertebral body osteophyte formation.Scattered atherosclerotic calcification of the abdominal aorta is seen. No fracture or subluxation of the lumbar vertebrae is seen. On the axial images the changes of degenerative disc disease are seen throughout the lumbar disc spaces. These consist of mild to moderate generalized disc bulges, degenerative changes involving the facet joints and mild to moderate ligamentum flavum hypertrophy bilaterally. These findings result in moderate central spinal canal stenosis at L3-4 and severe central spinal canal stenosis with moderate to severe bilateral neural foraminal stenosis at L4-5. These findings have not significantly changed. IMPRESSION: CT study performed to facilitate surgical planning/treatment as outlined above. Electronically signed by: Ashish Miranda MD (04/23/2018 8:31 AM) [id number]
[2018-04-23] MEDS ORDERED: ePHEDrine PF IN SALINE 50 MG/5 ML DISP.SYRIN IV ONE (09:11)
[2018-04-23] MEDS ORDERED: fentaNYL PF VIAL 100 MCG/2 ML VIAL ONE (09:51)
[2018-04-23] MEDS ORDERED: ceFAZolin SODIUM 1 GM VIAL ONE ×2 (09:55)
[2018-04-23] MEDS ORDERED: diphenhydrAMINE HCL 25 MG CAPSULE PO PRN (10:45)
[2018-04-23] MEDS ORDERED: MAGNESIUM HYDROXIDE 2,400 MG/30 ML ORAL.SUSP. PO PRN (10:45)
[2018-04-23] MEDS ORDERED: MAG HYDROX/ALUMINUM HYD/SIMETH 30 ML ORAL.SUSP PO PRN (10:45)
[2018-04-23] MEDS ORDERED: CALCIUM CARBONATE 500 MG TAB.CHEW PO PRN (10:45)
[2018-04-23] MEDS ORDERED: 0.9 % SODIUM CHLORIDE 10 ML DISP.SYRIN. IV PRN (10:45)
[2018-04-23] MEDS ORDERED: ACETAMINOPHEN 325 MG TABLET. PO PRN (10:45)
[2018-04-23] MEDS ORDERED: diphenhydrAMINE 50 MG/ML VIAL IV PRN (10:45)
[2018-04-23] MEDS ORDERED: PROPOFOL 50 ML IV ONE ×2 (11:46→14:05)
[2018-04-23] MEDS ORDERED: ceFAZolin SODIUM 1 GM in IV DEXTROSE 5% 50 ML IV SCH (14:00)
[2018-04-23] MEDS: fentaNYL PF VIAL 100 MCG/2 ML VIAL IV PRN ×6 (16:02→20:52)
[2018-04-23] MEDS: MORPHINE SULFATE 2 MG/ML VIAL. IV PRN ×2 (17:14→18:07)
[2018-04-23] MEDS ORDERED: MEPERIDINE PF 25 MG/ML VIAL. IV PRN (17:30)
[2018-04-23] MEDS ORDERED: MEPERIDINE PF 25 MG/ML VIAL. ONE (17:32)
[2018-04-23] MEDS: METHOCARBAMOL 750 MG TABLET PO SCH ×2 (18:07→20:59)
[2018-04-23] MEDS: oxyCODONE/APAP 5/325 1 TAB TABLET PO PRN ×2 (18:07→22:09)
[2018-04-23] MEDS: POTASSIUM CL 20MEQ D5-0.45NACL 1,000 ML IV SCH (18:13)
--- NOTE | 2018-04-23 18:32 | OP ---
DATE OF SURGERY: 04/23/2018 PREOPERATIVE DIAGNOSES: 1. Lumbar spinal stenosis, L3-L4, L4-L5. 2. Spondylolisthesis with motion on flexion and extension L4-L5. OPERATION PERFORMED: 1. Left direct laminectomy L3-L4. 2. Bilateral hemilaminotomies with decompression of dura and nerve root L4-L5, posterior instrumentation L4-L5, posterolateral fusion with allograft and autograft bone L4-L5, anterior discectomy L4-L5 with interbody fusion cage and allograft and autograft bone fusion. The operation was done with stimulated EMG monitoring, fluoroscopy, microscopic dissection, [employer] guidance. SURGEON: Devonte Ordoñez M.D. [employer] COUNTERPERSON: ERICK Travis assisted with the surgery. She assisted with the decompression and instrumentation. OPERATIVE INDICATIONS: The patient is a pleasant 62-year-old woman who developed intractable back and left greater than right leg pain. On imaging studies, she was found to have the above-mentioned findings, which at L4-L5 were severe and were combined with severe narrowing of the lateral recesses just inferior to the disc space bilaterally. I recommended a wide decompression at L4-L5 bilaterally. To deal with the stenosis at L3-L4, I felt a left direct laminectomy would be able to handle that problem. She did require instrumentation because of the motion on flexion and extension and I spoke with her about the reduction of spondylolisthesis and anterior discectomy, interbody fusion with placement of interbody fusion cage. She understood the surgery and the risks, she understood the technique of the operation and she wished to go ahead. DESCRIPTION OF PROCEDURE: Following general endotracheal anesthesia, the patient was positioned prone on the Moustapha table. Her lumbar region was prepped and draped in the standard fashion. TOM hose and AV impulse boots were applied for DVT prophylaxis. A microscope was draped. Fluoroscopy was draped and brought in the field. Monitoring was established. Ancef 2 grams was given less than 1 hour prior to initiation of the surgery. She had prior to surgery undergone a CT scan of the lumbar spine. The iliac posts were then placed into the right iliac crest and the [employer] system was initialized. A midline incision was made extending from L3-L5. I dissected down skin and subcutaneous tissue and first reflected the paraspinal muscles to the right exposing the right side. I using the [employer] system drilled into the posterior aspect of the pedicles of L4 and L5. I then tapped the pedicles, all using stimulated EMG monitoring. I did expose the transverse processes and excoriated these. I placed a needle into the right iliac crest and aspirated 20 mL of bone marrow. I then brought in the microscope and using microscope and microscopic technique, I burred down a generous hemilaminotomy reaching the midline and working quite far laterally at L4-L5 to fully decompress the dura and the exiting root. There was severe narrowing, especially just inferior to the disc space where the L5 roots were markedly compressed and pushed medially by large hypertrophic facet and spur and I removed this material and the nerve moved back to more normal position. Using the [employer] system, I placed 6.5 x 40 mm screws in L4 and L5. Placing reduction screws superiorly, I placed the avelina and the nuts, but the system was not torqued. I then went to the left side in a similar fashion, exposed the lamina of L3-L4 and L4-L5 and as well the transverse processes, lateral facet of L4 and L5. At this time, then I drilled in the posterior aspect of the pedicles of L4 and L5. I passed the black ball with stimulated EMG monitoring followed by tap placement. Again, with stimulated EMG monitoring, I closed those openings with bone wax and brought in the microscope and burred down a generous hemilaminotomy from the midline out quite far laterally and exposed the dura and the L5 root. I worked and exposed the L4 root as well and fully decompressed the entire region. The ligamentum flavum again was very thickened and scarred to the dura and I peeled this material away very carefully. There were large spurs inferiorly, which I trimmed away and fully decompressed the region. I then went up to L3-L4 in a similar fashion and burred down a very generous hemilaminotomy, carried myself to the midline, across the midline and then worked laterally and fully decompressed the entire region trimming away the very thickened ligamentum flavum performing a partial foraminotomy. Following the decompression at L4-L5, then I placed the screws which again were [employer] screws 6.5 x 40 mm . I then distracted and reduced the spondylolisthesis using the reduction screws and gentle distraction. I then prepared for the anterior operation and I tilted the patient and made an incision in the left posterior flank, I passed the [employer] system with a sleeve down to dock just adjacent to the far lateral exiting root, which I protected and I assured myself that I was not in contact with a root. Again, this was done from the left side. I passed a K-wire into the disc space, passed the dilator followed by the working channel and then out through the opening, I then performed a generous discectomy anteriorly. I did pass a curette down through the opening, I was able to scrape and remove cartilaginous endplate. I then passed the dilator, removed the working channel and placed a protective shield again preserving the far lateral root and then passed the trials and passed a cage that I could put in from this position. I did pass a considerable amount of allograft and autograft bone. I then placed a 10 x 26 mm cage, which was packed with allograft and autograft bone and gently tapped this into position. I took fluoroscopic images at this point and adjusted the position slightly and tapping it further across the midline. I then compressed and torqued the construct of the L4-L5 screws and during this time, also excoriated the lateral facet and the transverse processes of L4 and L5 and packed allograft and autograft bone into the left lateral gutter. The allograft bone I obtained from the wide decompression at L4-L5 and L3-L4. This accomplished, then I had an anterior discectomy and interbody fusion cage with fusion. The posterolateral fusion bone was in place, the pedicle screws were in place, the decompression bilaterally at L4-L5 and the left direct laminectomy at L3-L4 were completed. I irrigated copiously, removed the retractors, obtained hemostasis in the muscle and I closed the wound in layers with absorbable suture and skin was closed with 4-0 subcuticular stitch. I felt the surgery went very well and the patient was taken to the recovery room uneventfully. I was quite pleased with the surgery. DEVONTE ORDOÑEZ MD DR: EDGAR/robi JOB#: [id number] / [id number] NICOLETTE
[2018-04-23] MEDS: ceFAZolin SODIUM IV Push 1 GM VIAL. IVP SCH (18:47)
[2018-04-23] MEDS: SERTRALINE 50 MG TABLET. PO SCH (20:55)
[2018-04-23] MEDS: ATORVASTATIN CALCIUM 10 MG TABLET. PO SCH (20:55)
[2018-04-23] MEDS: DOCUSATE SODIUM 100 MG CAPSULE. PO SCH (20:55)
[2018-04-23] MEDS ORDERED: DEXAMETHASONE SOD PHOS 20 MG/5 ML VIAL. IV ONE (22:00)
[2018-04-24] VITALS (7 sets, daily range): BP systolic 79–122; BP diastolic 29–57
[2018-04-24] MEDS: ceFAZolin SODIUM IV Push 1 GM VIAL. IVP SCH ×2 (02:02→09:11)
[2018-04-24] MEDS: oxyCODONE/APAP 5/325 1 TAB TABLET PO PRN ×4 (02:03→21:05)
[2018-04-24] MEDS: POTASSIUM CL 20MEQ D5-0.45NACL 1,000 ML IV SCH ×2 (03:40→13:16)
[2018-04-24] MEDS ORDERED: IV NORMAL SALINE 500ML BAG 500 ML IV ONE (05:15)
[2018-04-24] MEDS: DOCUSATE SODIUM 100 MG CAPSULE. PO SCH ×2 (07:48→21:04)
[2018-04-24] MEDS: METHOCARBAMOL 750 MG TABLET PO SCH ×3 (07:48→21:04)
[2018-04-24] MEDS: fentaNYL PF VIAL 100 MCG/2 ML VIAL IV PRN (07:50)
--- NOTE | 2018-04-24 10:21 | PDOC ---
PROGRESS NOTES Subjective Subjective POD #1 C/o back/ incisional pain and right thigh pain better today than last night BP down with fentanyl Objective Objective Vital Signs Date Time Temp Pulse Resp B/P (MAP) Pulse Ox O2 Delivery O2 Flow Rate FiO2 04/24/18 10:09 20 04/24/18 09:14 79 79/29 (46) Room Air 04/24/18 06:46 96 04/24/18 05:12 98.5 98.5 04/24/18 02:58 4.0 Intake and Output 04/24/18 07:00 Intake Total 2455 ml Output Total 700 ml Balance 1755 ml Intake IV Total 1850 ml Blood Product IV Normal Saline Flush 605 ml Output Urine Total 600 ml Estimated Blood Loss 100 ml Physical Exam General: Alert, Oriented X3, Cooperative MUSCULOSKELETAL: Other (PADILLA, strength 5/5 in BLE) Neuro: Sensation intact Skin: Other Plan Plan of Care steroids for 24 hrs PT encouraged increased activity as tolerated SCDS/ teds d/w RN Comment Review of Relevant I have reviewed the following items poli (where applicable) has been applied. Medications Current Medications Ondansetron HCl (Zofran) 4 mg PRN Q6HRS PRN IV NAUSEA/VOMITING; Start 04/23/18 at 07:00; Stop 04/23/18 at 23:00; Status DC Fentanyl Citrate (Fentanyl 2ml Vial) 25 mcg PRN Q5MIN PRN IV MILD PAIN; Start 04/23/18 at 07:00; Stop 04/23/18 at 23:00; Status DC Fentanyl Citrate (Fentanyl 2ml Vial) 50 mcg PRN Q5MIN PRN IV MODERATE TO SEVERE PAIN Last administered on 04/23/18at 17:36; Start 04/23/18 at 07:00; Stop 04/23/18 at 23:00; Status DC Morphine Sulfate (Morphine Sulfate) 1 mg PRN Q10MIN PRN IV SEVERE PAIN Last administered on 04/23/18at 18:07; Start 04/23/18 at 07:00; Stop 04/23/18 at 23:00 ; Status DC Ringer's Solution 1,000 ml @ 30 mls/hr Q24H IV Last administered on 04/23/18at 06:29; Start 04/23/18 at 07:00; Stop 04/23/18 at 18:59; Status DC Lidocaine HCl (Xylocaine-Mpf 1% Vial) 2 ml PRN 1X PRN ID PRIOR TO IV START; Start 04/23/18 at 07:00; Stop 04/23/18 at 23:00; Status DC Prochlorperazine Edisylate (Compazine) 5 mg PACU PRN PRN IV NAUSEA, MRX1; Start 04/23/18 at 07:00; Stop 04/23/18 at 23:00; Status DC Cefazolin Sodium/ Dextrose 50 ml @ 100 mls/hr 1X PREOP PRN IV PRIOR TO PROCEDURE Last administered on 04/23/18at 09:42; Start 04/23/18 at 06:00; Stop at 18:00; Status DC Bacitracin 61776 unit/Sodium Chloride 1,000 ml @ 1,000 mls/hr 1X ONCE IRR Last administered on 04/23/18at 09:46; Start 04/23/18 at 06:00; Stop 04/23/18 at 06:59; Status DC Bupivacaine HCl/ Epinephrine Bitart (Sensorcain-Mpf Epi 0.5%-1:[id number]) 30 ml 1X ONCE INJ Last administered on 04/23/18at 09:46; Start 04/23/18 at 06:00; Stop 04/23/18 at 06:01; Status DC Gelatin (Gelfoam Size 100) 1 each STK-MED ONCE .ROUTE Last administered on at 09:46; Start 04/23/18 at 05:52; Stop 04/23/18 at 06:53; Status DC Ketorolac Tromethamine (Toradol For Or Only) 60 mg STK-MED ONCE .ROUTE Last administered on 04/23/18at 09:46; Start 04/23/18 at 05:52; Stop 04/23/18 at 06:53 ; Status DC Thrombin 20,000 unit STK-MED ONCE TP Last administered on 04/23/18 09:46; Start 04/23/18 at 05:52; Stop 04/23/18 at 06:54; Status DC Propofol 100 ml @ As Directed STK-MED ONCE IV ; Start 04/23/18 at 07:06; Stop 04/23/18 at 08:07; Status DC Glycopyrrolate (Robinul) 1 mg STK-MED ONCE .ROUTE ; Start 04/23/18 at 08:12; Stop 04/23/18 at 08:14; Status DC Rocuronium Cantil (Zemuron) 50 mg STK-MED ONCE .ROUTE ; Start 04/23/18 at 08:12 ; Stop 04/23/18 at 08:14; Status DC Glycopyrrolate (Robinul) 1 mg STK-MED ONCE .ROUTE ; Start 04/23/18 at 08:13; Stop 04/23/18 at 08:14; Status DC Desflurane (Suprane) 90 ml STK-MED ONCE IH ; Start 04/23/18 at 08:14; Stop 04/23 at 08:16; Status DC Remifentanil HCl (Ultiva) 2,000 mg 1X ONCE IV ; Start 04/23/18 at 08:30; Stop 04/23/18 at 08:31; Status DC Phenylephrine HCl (Jhoan-Synephrine Inj) 10 mg STK-MED ONCE .ROUTE ; Start at 08:28; Stop 04/23/18 at 08:29; Status DC Phenylephrine HCl (Jhoan-Synephrine Inj) 10 mg STK-MED ONCE .ROUTE ; Start at 08:28; Stop 04/23/18 at 08:29; Status DC Dexamethasone Sodium Phosphate (Decadron) 20 mg STK-MED ONCE .ROUTE ; Start at 08:28; Stop 04/23/18 at 08:29; Status DC Ondansetron HCl (Zofran) 4 mg STK-MED ONCE .ROUTE ; Start 04/23/18 at 08:28; Stop 04/23/18 at 08:29; Status DC Ketorolac Tromethamine (Toradol For Or Only) 30 mg STK-MED ONCE INJ ; Start at 08:28; Stop 04/23/18 at 08:29; Status DC Ephedrine Sulfate (ePHEDrine PF IN SALINE SYRINGE) 50 mg STK-MED ONCE IV ; Start 04/23/18 at 09:11; Stop 04/23/18 at 09:12; Status DC Fentanyl Citrate (Fentanyl 2ml Vial) 100 mcg STK-MED ONCE .ROUTE ; Start at 09:51; Stop 04/23/18 at 09:52; Status DC Cefazolin Sodium (Ancef) 1 gm STK-MED ONCE .ROUTE ; Start 04/23/18 at 09:55; Stop 04/23/18 at 09:56; Status DC Cefazolin Sodium (Ancef) 1 gm STK-MED ONCE .ROUTE ; Start 04/23/18 at 09:55; Stop 04/23/18 at 09:56; Status DC Sertraline HCl (Zoloft) 50 mg HS PO Last administered on 04/23/18at 20:55; Start 04/23/18 at 21:00 Atorvastatin Calcium (Lipitor) 10 mg QHS PO Last administered on 04/23/18at 20: 55; Start 04/23/18 at 21:00 Acetaminophen (Tylenol) 650 mg PRN Q6HRS PRN PO MILD PAIN / TEMP; Start at 10:45 Al Hydroxide/Mg Hydroxide (Mylanta Plus Xs) 30 ml PRN Q3HRS PRN PO HEARTBURN / GAS; Start 04/23/18 at 10:45 Calcium Carbonate/ Glycine (Tums) 500 mg PRN Q3HRS PRN PO INDIGESTION; Start at 10:45 Diphenhydramine HCl (Benadryl) 25 mg PRN Q6HRS PRN PO ITCHING; Start 04/23/18 at 10:45 Diphenhydramine HCl (Benadryl) 25 mg PRN Q6HRS PRN IV ITCHING; Start 04/23/18 at 10:45 Sodium Chloride (Normal Saline Flush) 3 ml QSHIFT PRN IV AFTER MEDS AND BLOOD DRAWS; Start 04/23/18 at 10:45 Potassium Chloride/Dextrose/ Sod Cl 1,000 ml @ 75 mls/hr [id number] IV Last administered on 04/24/18at 03:40; Start 04/23/18 at 10:36 Oxycodone/ Acetaminophen (Percocet 5/325) 1 tab PRN Q4HRS PRN PO MILD PAIN, 1ST CHOICE Last administered on 04/23/18at 18:07; Start 04/23/18 at 10:45 Oxycodone/ Acetaminophen (Percocet 5/325) 2 tab PRN Q4HRS PRN PO MODERATE PAIN , SEVERE PAIN Last administered on 04/24/18at 10:09; Start 04/23/18 at 10:45 Methocarbamol (Robaxin) 750 mg TID PO Last administered on 04/24/18at 07:48; Start 04/23/18 at 14:00 Docusate Sodium (Colace) 100 mg BID PO Last administered on 04/24/18at 07:48; Start 04/23/18 at 21:00 Magnesium Hydroxide (Milk Of Magnesia) 2,400 mg PRN Q12HR PRN PO CONSTIPATION; Start 04/23/18 at 10:45 Ondansetron HCl (Zofran) 4 mg PRN Q6HRS PRN IV NAUESA, 1ST CHOICE; Start at 10:45 Cefazolin Sodium 1 gm/Dextrose 50 ml @ 100 mls/hr Q8HRS IV ; Start 04/23/18 at 14:00; Stop 04/24/18 at 06:29; Status UNV Fentanyl Citrate (Fentanyl 2ml Vial) 50 mcg PRN Q2HR PRN IV SEVERE PAIN Last administered on 04/24/18at 07:50; Start 04/23/18 at 10:45 Fentanyl Citrate (Fentanyl 2ml Vial) 25 mcg PRN Q2HR PRN IV MODERATE PAIN; Start 04/23/18 at 10:45 Propofol 50 ml @ As Directed STK-MED ONCE IV ; Start 04/23/18 at 11:46; Stop at 11:47; Status DC Propofol 50 ml @ As Directed STK-MED ONCE IV ; Start 04/23/18 at 14:05; Stop at 14:06; Status DC Cefazolin Sodium (Ancef) 1 gm Q8H IVP Last administered on 04/24/18at 09:11; Start 04/23/18 at 18:00; Stop 04/24/18 at 10:01; Status DC Meperidine HCl (Demerol) 25 mg STK-MED ONCE .ROUTE ; Start 04/23/18 at 17:32; Stop 04/23/18 at 17:33; Status DC Meperidine HCl (Demerol) 25 mg 1X PACU PRN IV SHIVERING; Start 04/23/18 at 17: 30; Stop 04/23/18 at 23:00; Status DC Dexamethasone Sodium Phosphate (Decadron) 10 mg 1X ONCE IV Last administered on 04/23/18at 21:41; Start 04/23/18 at 22:00; Stop 04/23/18 at 22:01; Status DC Sodium Chloride 500 ml @ 500 mls/hr 1X ONCE IV Last administered on at 05:14; Start 04/24/18 at 05:15; Stop 04/24/18 at 06:14; Status DC Remifentanil HCl (Ultiva) 2 mg STK-MED ONCE IV ; Start 04/23/18 at 12:00; Stop 04/24/18 at 08:40; Status DC Dexamethasone Sodium Phosphate (Decadron) 4 mg Q6HRS IV ; Start 04/24/18 at 12: 00; Stop 04/25/18 at 12:00 Active Scripts Active Reported Aleve (Naproxen Sodium) 220 Mg Tablet 666 Mg PO TID Zoloft (Sertraline Hcl) 50 Mg Tablet 1 Tab PO HS Pravastatin Sodium 40 Mg Tablet 1 Tab PO QHS Vitals/I & O Vital Sign - Last 24 Hours 04/23/18 04/23/18 04/23/18 04/23/18 15:44 16:00 16:02 16:10 Temp 98.3 98.3 Pulse 110 92 Resp 12 6 8 14 B/P (MAP) 112/51 102/60 Pulse Ox 94 92 94 95 O2 Delivery Simple Mask Simple Mask Simple Mask Simple Mask O2 Flow Rate 10 10 10.0 10.0 04/23/18 04/23/18 04/23/18 04/23/18 16:15 16:28 16:30 16:40 Pulse 106 113 Resp 10 12 10 10 B/P (MAP) 97/55 104/55 Pulse Ox 92 97 93 93 O2 Delivery Nasal Cannula Simple Mask Simple Mask Simple Mask O2 Flow Rate 4 10.0 10 10.0 04/23/18 04/23/18 04/23/18 04/23/18 16:45 17:00 17:00 17:14 Temp 97.6 97.6 Pulse 110 96 98 Resp 4 20 12 20 B/P (MAP) 124/57 98/65 (76) 105/58 Pulse Ox 97 97 94 O2 Delivery Simple Mask Nasal Cannula Nasal Cannula Nasal Cannula O2 Flow Rate 4.0 4 4.0 04/23/18 04/23/18 04/23/1818 17:15 17:30 17:36 17:40 Pulse 98 89 98 Resp 20 16 16 16 B/P (MAP) 103/53 89/38 94/51 Pulse Ox 96 97 98 96 O2 Delivery Nasal Cannula Nasal Cannula Nasal Cannula Nasal Cannula O2 Flow Rate 4 4 4.0 4 04/23/18 04/23/18 04/23/18 04/23/18 18:00 18:07 18:07 18:15 Pulse 73 77 Resp 20 20 20 20 B/P (MAP) 90/38 (55) 79/40 (53) Pulse Ox 94 96 94 O2 Delivery Nasal Cannula Nasal Cannula Nasal Cannula Nasal Cannula O2 Flow Rate 4.0 2.0 4.0 4.0 04/23/18 04/23/18 04/23/18 04/23/18 18:30 18:45 18:47 19:00 Temp 97.4 97.4 Pulse 87 72 83 Resp 20 18 20 16 B/P (MAP) 102/49 (66) 95/45 (62) 87/38 (54) Pulse Ox 95 96 96 91 O2 Delivery Nasal Cannula Nasal Cannula Nasal Cannula Nasal Cannula O2 Flow Rate 4.0 4.0 4.0 4.0 04/23/18 04/23/18 04/23/18 04/23/18 19:08 19:30 20:00 20:00 Temp 97.5 97.5 97.5 97.5 Pulse 84 78 Resp 16 17 B/P (MAP) 113/57 (75) 103/56 (72) Pulse Ox 96 93 96 O2 Delivery Nasal Cannula Nasal Cannula Nasal Cannula Nasal Cannula O2 Flow Rate 4.0 4.0 4.0 4.0 04/23/18 04/23/18 04/23/18 04/23/18 20:52 21:00 21:25 22:09 Temp 97.4 97.4 Pulse 67 Resp 20 17 24 B/P (MAP) 90/43 (59) Pulse Ox 98 O2 Delivery Nasal Cannula Nasal Cannula Nasal Cannula O2 Flow Rate 4.0 4.0 4.0 04/23/18 04/24/18 04/24/18 04/24/18 22:56 02:03 02:58 05:12 Temp 98.5 98.5 Pulse 77 76 72 Resp 18 20 18 24 B/P (MAP) 99/52 (68) 108/57 (74) 99/42 (61) Pulse Ox 99 98 97 O2 Delivery Nasal Cannula Nasal Cannula Nasal Cannula Room Air O2 Flow Rate 4.0 4.0 4.0 04/24/18 04/24/18 04/24/18 04/24/18 06:46 07:45 07:50 08:15 Pulse 80 Resp 20 20 B/P (MAP) 93/31 (51) Pulse Ox 96 O2 Delivery Room Air Room Air Room Air 04/24/18 04/24/18 09:14 10:09 Pulse 79 Resp 20 20 B/P (MAP) 79/29 (46) O2 Delivery Room Air Intake and Output 04/23/18 04/23/18 04/24/18 15:00 23:00 07:00 Intake Total 100 ml 1750 ml 605 ml Output Total 450 ml 250 ml Balance 100 ml 1300 ml 355 ml HOLLY ORDOÑEZ MD Apr 24, 2018 10:21
[2018-04-24] MEDS: DEXAMETHASONE SOD PHOS 4 MG/ML VIAL IV SCH ×3 (11:13→23:52)
[2018-04-24] MEDS: ATORVASTATIN CALCIUM 10 MG TABLET. PO SCH (21:04)
[2018-04-24] MEDS: SERTRALINE 50 MG TABLET. PO SCH (21:04)
[2018-04-25 03:21] VITALS: BP 92/55
[2018-04-25 05:30] VITALS: BP 105/56
[2018-04-25] MEDS: DEXAMETHASONE SOD PHOS 4 MG/ML VIAL IV SCH ×4 (06:10→23:54)
[2018-04-25] MEDS: DOCUSATE SODIUM 100 MG CAPSULE. PO SCH ×2 (07:57→20:40)
[2018-04-25] MEDS: METHOCARBAMOL 750 MG TABLET PO SCH ×3 (07:58→20:40)
[2018-04-25] MEDS: fentaNYL PF VIAL 100 MCG/2 ML VIAL IV PRN ×2 (08:08→11:28)
--- NOTE | 2018-04-25 08:15 | RAD ---
EXAM: 4 intraoperative fluoroscopic views of the lumbar spine DATE: 04/23/2018 9:11 AM INDICATION: Spinal fusion COMPARISON: 02/07/2018 FINDINGS/ IMPRESSION: 4 very limited intraoperative fluoroscopic views of the lumbar spine submitted from the OR. Exam shows steps toward posterior and interbody fusion. Note, this does not constitute a diagnostic quality exam. Please see operative report for full details. Electronically signed by: Cristóbal Rivas MD (04/25/2018 8:11 AM) [facility]
[2018-04-25] MEDS: oxyCODONE/APAP 5/325 1 TAB TABLET PO PRN ×3 (10:11→20:40)
[2018-04-25 11:30] VITALS: BP 133/61
--- NOTE | 2018-04-25 12:06 | PDOC ---
PROGRESS NOTES Subjective Subjective POD #2 slept well over night but Continue with right leg pain this morning no significant back pain Objective Objective Vital Signs Date Time Temp Pulse Resp B/P (MAP) Pulse Ox O2 Delivery O2 Flow Rate FiO2 04/25/18 11:30 98.4 68 20 133/61 (85) 97 Room Air 98.4 04/24/18 02:58 4.0 Intake and Output 04/25/18 07:00 Intake Total 650 ml Output Total 1450 ml Balance -800 ml Intake Oral 650 ml Output Urine Total 1450 ml Stool Total 0 ml Physical Exam General: Alert, Oriented X3, Cooperative MUSCULOSKELETAL: Other (PADILLA) Neuro: Sensation intact, Other (strength 5/5 in BLE) Plan Plan of Care Lumbar CT and x rays today PT SCDs Comment Review of Relevant I have reviewed the following items poli (where applicable) has been applied. Medications Current Medications Ondansetron HCl (Zofran) 4 mg PRN Q6HRS PRN IV NAUSEA/VOMITING; Start 04/23/18 at 07:00; Stop 04/23/18 at 23:00; Status DC Fentanyl Citrate (Fentanyl 2ml Vial) 25 mcg PRN Q5MIN PRN IV MILD PAIN; Start 04/23/18 at 07:00; Stop 04/23/18 at 23:00; Status DC Fentanyl Citrate (Fentanyl 2ml Vial) 50 mcg PRN Q5MIN PRN IV MODERATE TO SEVERE PAIN Last administered on 04/23/18at 17:36; Start 04/23/18 at 07:00; Stop 04/23/18 at 23:00; Status DC Morphine Sulfate (Morphine Sulfate) 1 mg PRN Q10MIN PRN IV SEVERE PAIN Last administered on 04/23/18at 18:07; Start 04/23/18 at 07:00; Stop 04/23/18 at 23:00 ; Status DC Ringer's Solution 1,000 ml @ 30 mls/hr Q24H IV Last administered on 04/23/18at 06:29; Start 04/23/18 at 07:00; Stop 04/23/18 at 18:59; Status DC Lidocaine HCl (Xylocaine-Mpf 1% Vial) 2 ml PRN 1X PRN ID PRIOR TO IV START; Start 04/23/18 at 07:00; Stop 04/23/18 at 23:00; Status DC Prochlorperazine Edisylate (Compazine) 5 mg PACU PRN PRN IV NAUSEA, MRX1; Start 04/23/18 at 07:00; Stop 04/23/18 at 23:00; Status DC Cefazolin Sodium/ Dextrose 50 ml @ 100 mls/hr 1X PREOP PRN IV PRIOR TO PROCEDURE Last administered on 04/23/18at 09:42; Start 04/23/18 at 06:00; Stop at 18:00; Status DC Bacitracin 28405 unit/Sodium Chloride 1,000 ml @ 1,000 mls/hr 1X ONCE IRR Last administered on 04/23/18at 09:46; Start 04/23/18 at 06:00; Stop 04/23/18 at 06:59; Status DC Bupivacaine HCl/ Epinephrine Bitart (Sensorcain-Mpf Epi 0.5%-1:519206) 30 ml 1X ONCE INJ Last administered on 04/23/18at 09:46; Start 04/23/18 at 06:00; Stop 04/23/18 at 06:01; Status DC Gelatin (Gelfoam Size 100) 1 each STK-MED ONCE .ROUTE Last administered on at 09:46; Start 04/23/18 at 05:52; Stop 04/23/18 at 06:53; Status DC Ketorolac Tromethamine (Toradol For Or Only) 60 mg STK-MED ONCE .ROUTE Last administered on 04/23/18at 09:46; Start 04/23/18 at 05:52; Stop 04/23/18 at 06:53 ; Status DC Thrombin 20,000 unit STK-MED ONCE TP Last administered on 04/23/18at 09:46; Start 04/23/18 at 05:52; Stop 04/23/18 at 06:54; Status DC Propofol 100 ml @ As Directed STK-MED ONCE IV ; Start 04/23/18 at 07:06; Stop 04/23/18 at 08:07; Status DC Glycopyrrolate (Robinul) 1 mg STK-MED ONCE .ROUTE ; Start 04/23/18 at 08:12; Stop 04/23/18 at 08:14; Status DC Rocuronium [place] (Zemuron) 50 mg STK-MED ONCE .ROUTE ; Start 04/23/18 at 08:12 ; Stop 04/23/18 at 08:14; Status DC Glycopyrrolate (Robinul) 1 mg STK-MED ONCE .ROUTE ; Start 04/23/18 at 08:13; Stop 04/23/18 at 08:14; Status DC Desflurane (Suprane) 90 ml STK-MED ONCE IH ; Start 04/23/18 at 08:14; Stop 04/23 at 08:16; Status DC Remifentanil HCl (Ultiva) 2,000 mg 1X ONCE IV ; Start 04/23/18 at 08:30; Stop 04/23/18 at 08:31; Status DC Phenylephrine HCl (Jhoan-Synephrine Inj) 10 mg STK-MED ONCE .ROUTE ; Start at 08:28; Stop 04/23/18 at 08:29; Status DC Phenylephrine HCl (Jhoan-Synephrine Inj) 10 mg STK-MED ONCE .ROUTE ; Start at 08:28; Stop 04/23/18 at 08:29; Status DC Dexamethasone Sodium Phosphate (Decadron) 20 mg STK-MED ONCE .ROUTE ; Start at 08:28; Stop 04/23/18 at 08:29; Status DC Ondansetron HCl (Zofran) 4 mg STK-MED ONCE .ROUTE ; Start 04/23/18 at 08:28; Stop 04/23/18 at 08:29; Status DC Ketorolac Tromethamine (Toradol For Or Only) 30 mg STK-MED ONCE INJ ; Start at 08:28; Stop 04/23/18 at 08:29; Status DC Ephedrine Sulfate (ePHEDrine PF IN SALINE SYRINGE) 50 mg STK-MED ONCE IV ; Start 04/23/18 at 09:11; Stop 04/23/18 at 09:12; Status DC Fentanyl Citrate (Fentanyl 2ml Vial) 100 mcg STK-MED ONCE .ROUTE ; Start at 09:51; Stop 04/23/18 at 09:52; Status DC Cefazolin Sodium (Ancef) 1 gm STK-MED ONCE .ROUTE ; Start 04/23/18 at 09:55; Stop 04/23/18 at 09:56; Status DC Cefazolin Sodium (Ancef) 1 gm STK-MED ONCE .ROUTE ; Start 04/23/18 at 09:55; Stop 04/23/18 at 09:56; Status DC Sertraline HCl (Zoloft) 50 mg HS PO Last administered on 04/24/18at 21:04; Start 04/23/18 at 21:00 Atorvastatin Calcium (Lipitor) 10 mg QHS PO Last administered on 04/24/18at 21: 04; Start 04/23/18 at 21:00 Acetaminophen (Tylenol) 650 mg PRN Q6HRS PRN PO FEVER; Start 04/23/18 at 10:45 Al Hydroxide/Mg Hydroxide (Mylanta Plus Xs) 30 ml PRN Q3HRS PRN PO HEARTBURN / GAS; Start 04/23/18 at 10:45 Calcium Carbonate/ Glycine (Tums) 500 mg PRN Q3HRS PRN PO INDIGESTION; Start at 10:45 Diphenhydramine HCl (Benadryl) 25 mg PRN Q6HRS PRN PO ITCHING; Start 04/23/18 at 10:45 Diphenhydramine HCl (Benadryl) 25 mg PRN Q6HRS PRN IV ITCHING; Start 04/23/18 at 10:45 Sodium Chloride (Normal Saline Flush) 3 ml QSHIFT PRN IV AFTER MEDS AND BLOOD DRAWS; Start 04/23/18 at 10:45 Potassium Chloride/Dextrose/ Sod Cl 1,000 ml @ 75 mls/hr [id number] IV Last administered on 04/24/18at 03:40; Start 04/23/18 at 10:36; Stop 04/24/18 at 21:03 ; Status DC Oxycodone/ Acetaminophen (Percocet 5/325) 1 tab PRN Q4HRS PRN PO MILD PAIN, 1ST CHOICE Last administered on 04/23/18at 18:07; Start 04/23/18 at 10:45 Oxycodone/ Acetaminophen (Percocet 5/325) 2 tab PRN Q4HRS PRN PO MODERATE PAIN , SEVERE PAIN Last administered on 04/25/18at 10:11; Start 04/23/18 at 10:45 Methocarbamol (Robaxin) 750 mg TID PO Last administered on 04/25/18at 07:58; Start 04/23/18 at 14:00 Docusate Sodium (Colace) 100 mg BID PO Last administered on 04/25/18at 07:57; Start 04/23/18 at 21:00 Magnesium Hydroxide (Milk Of Magnesia) 2,400 mg PRN Q12HR PRN PO CONSTIPATION; Start 04/23/18 at 10:45 Ondansetron HCl (Zofran) 4 mg PRN Q6HRS PRN IV NAUESA, 1ST CHOICE; Start at 10:45 Cefazolin Sodium 1 gm/Dextrose 50 ml @ 100 mls/hr Q8HRS IV ; Start 04/23/18 at 14:00; Stop 04/24/18 at 06:29; Status UNV Fentanyl Citrate (Fentanyl 2ml Vial) 50 mcg PRN Q2HR PRN IV SEVERE PAIN Last administered on 04/25/18at 11:28; Start 04/23/18 at 10:45 Fentanyl Citrate (Fentanyl 2ml Vial) 25 mcg PRN Q2HR PRN IV MODERATE PAIN; Start 04/23/18 at 10:45 Propofol 50 ml @ As Directed STK-MED ONCE IV ; Start 04/23/18 at 11:46; Stop at 11:47; Status DC Propofol 50 ml @ As Directed STK-MED ONCE IV ; Start 04/23/18 at 14:05; Stop at 14:06; Status DC Cefazolin Sodium (Ancef) 1 gm Q8H IVP Last administered on 04/24/18at 09:11; Start 04/23/18 at 18:00; Stop 04/24/18 at 10:01; Status DC Meperidine HCl (Demerol) 25 mg STK-MED ONCE .ROUTE ; Start 04/23/18 at 17:32; Stop 04/23/18 at 17:33; Status DC Meperidine HCl (Demerol) 25 mg 1X PACU PRN IV SHIVERING; Start 04/23/18 at 17: 30; Stop 04/23/18 at 23:00; Status DC Dexamethasone Sodium Phosphate (Decadron) 10 mg 1X ONCE IV Last administered on 04/23/18at 21:41; Start 04/23/18 at 22:00; Stop 04/23/18 at 22:01; Status DC Sodium Chloride 500 ml @ 500 mls/hr 1X ONCE IV Last administered on at 05:14; Start 04/24/18 at 05:15; Stop 04/24/18 at 06:14; Status DC Remifentanil HCl (Ultiva) 2 mg STK-MED ONCE IV ; Start 04/23/18 at 12:00; Stop 04/24/18 at 08:40; Status DC Dexamethasone Sodium Phosphate (Decadron) 4 mg Q6HRS IV Last administered on at 11:28; Start 04/24/18 at 12:00; Stop 04/25/18 at 12:00; Status DC Active Scripts Active Reported Aleve (Naproxen Sodium) 220 Mg Tablet 666 Mg PO TID Zoloft (Sertraline Hcl) 50 Mg Tablet 1 Tab PO HS Pravastatin Sodium 40 Mg Tablet 1 Tab PO QHS Vitals/I & O Vital Sign - Last 24 Hours 04/24/18 04/24/18 04/24/18 04/24/18 14:00 16:56 17:07 21:05 Temp 97.6 99.2 97.6 99.2 Pulse 65 87 Resp 20 20 20 20 B/P (MAP) 122/46 (71) 108/42 (64) Pulse Ox 97 97 O2 Delivery Room Air Room Air Room Air 04/25/18 04/25/18 04/25/18 04/25/18 03:21 05:30 08:00 08:08 Temp 98.9 98.2 98.9 98.2 Pulse 83 Resp 20 16 20 B/P (MAP) 92/55 (67) 105/56 (72) Pulse Ox 94 96 O2 Delivery Room Air Room Air Room Air 04/25/18 04/25/18 11:28 11:30 Temp 98.4 98.4 Pulse 68 Resp 20 20 B/P (MAP) 133/61 (85) Pulse Ox 97 O2 Delivery Room Air Intake and Output 04/24/18 04/24/18 04/25/18 15:00 23:00 07:00 Intake Total 650 ml Output Total 350 ml 1100 ml 0 ml Balance -350 ml -450 ml 0 ml HOLLY ORDOÑEZ MD Apr 25, 2018 12:06
[2018-04-25 14:14] VITALS: BP 100/57
--- NOTE | 2018-04-25 16:15 | RAD ---
CT lumbar spine without IV contrast CLINICAL HISTORY:POST OP PAIN, LUMBAR RADICULOPATHY surgery 04/23/2018 COMPARISON: CT 04/23/2018 TECHNIQUE: This CT study consists of contiguous axial images performed through the lumbar spine. Sagittal and coronal reformatted images were also performed PQRS compliance statement - One or more of the following individualized dose reduction techniques were utilized for this study: 1. Automated exposure control 2. Adjustment of the mA and/or kV according to patient size 3. Use of iterative reconstruction technique. FINDINGS: Postoperative changes of L4-5 posterior and interbody fusion are now seen with associated partial posterior decompression. The pedicle screws are intact and in good position. No hardware complication. Bone graft material is seen laterally.Mild epidural gas and associated soft tissue gas is seen, postsurgical. Vertebral body heights are preserved. There is no spondylolisthesis. Mild T12-L1, L1-L2 and L2-3 intervertebral disc height loss. L1-L2: Mild circumferential disc bulge causes deformity of the thecal sac and mild bilateral neural foraminal narrowing, essentially stable. L2-L3: Mild circumferential disc bulge causes deformity of the thecal sac and mild bilateral neural foraminal narrowing, essentially stable. L3-L4: Diffuse circumferential disc bulge, ligamentum flavum hypertrophy and mildly prominent epidural fat causes moderate to severe central canal stenosis and moderate bilateral neural foraminal narrowing, stable. L4-L5: Evaluation is limited at this level given associated streak artifact in foci of gas, postsurgical. There is diffuse circumferential disc bulge which results in moderate central canal stenosis. There is moderate bilateral neural foraminal narrowing. L5-S1: Diffuse circumferential disc bulge causes mild central canal narrowing and [id number]-[id number] bilateral neural foraminal narrowing. IMPRESSION: 1. Post surgical changes of L4-5 posterior and interbody fusion, in good alignment without definite hardware complication. No residual L4-5 spondylolisthesis. 2. Expected postoperative soft tissue changes are seen including foci of gas within the subcutaneous soft tissues as well as the surgical bed. Electronically signed by: Cristóbal Rivas MD (04/25/2018 4:11 PM) [facility]
[2018-04-25] MEDS: POLYETHYLENE GLYCOL 3350 17 GM PACKET. PO SCH (17:44)
--- NOTE | 2018-04-25 17:59 | RAD ---
EXAM: AP, lateral, LS spot views of the lumbar spine DATE: 04/25/2018 12:47 PM INDICATION: low back pain , recent back surgery COMPARISON: 02/07/2018 FINDINGS/ IMPRESSION: There are 5 nonrib-bearing lumbar-type vertebral bodies. Posterior and interbody fusion at L4-5 is seen, in good alignment without definite hardware complication. Mild T12-L1, L1-L2, L2-L3 and L3-4 intervertebral disc height loss. Vertebral body heights are preserved. Compared to prior examination, there is now no spondylolisthesis at L4-5. Mild leftward curvature of the thoracal lumbar spine. Soft tissue swelling with subcutaneous gas is seen dorsally likely from recent postoperative state. Electronically signed by: Cristóbal Rivas MD (04/25/2018 5:55 PM) [facility]
[2018-04-25 18:01] VITALS: BP 134/51
[2018-04-25] MEDS: ATORVASTATIN CALCIUM 10 MG TABLET. PO SCH (20:40)
[2018-04-25] MEDS: SERTRALINE 50 MG TABLET. PO SCH (20:40)
[2018-04-26] MEDS: DEXAMETHASONE SOD PHOS 4 MG/ML VIAL IV SCH ×2 (05:39→11:24)
[2018-04-26 05:46] VITALS: BP 114/58
[2018-04-26] MEDS: POLYETHYLENE GLYCOL 3350 17 GM PACKET. PO SCH (08:01)
[2018-04-26] MEDS: METHOCARBAMOL 750 MG TABLET PO SCH ×2 (08:02→11:24)
[2018-04-26] MEDS: oxyCODONE/APAP 5/325 1 TAB TABLET PO PRN ×3 (08:02→12:27)
[2018-04-26] MEDS: DOCUSATE SODIUM 100 MG CAPSULE. PO SCH (08:02)
[2018-04-26] MEDS ORDERED: METH4TAB2 PO (10:54)
[2018-04-26] MEDS ORDERED: OXYC-323 PO (10:55)
[2018-04-26] MEDS ORDERED: METH-38 PO (10:58)
[2018-04-26 11:28] VITALS: BP 114/64
--- NOTE | 2018-04-26 11:44 | PDOC ---
PROGRESS NOTES Subjective Subjective pain significantly improved wants to go home Objective Objective Vital Signs Date Time Temp Pulse Resp B/P (MAP) Pulse Ox O2 Delivery O2 Flow Rate FiO2 04/26/18 11:28 97.9 73 20 114/64 (81) 97 Room Air 97.9 04/24/18 02:58 4.0 Intake and Output 04/26/18 07:00 Intake Total 200 ml Output Total 0 ml Balance 200 ml Intake Oral 200 ml Stool Total 0 ml Physical Exam General: Alert, Oriented X3, Cooperative Neuro: Sensation intact, Other (strength 5/5 in BLE) Skin: Other (dressing dry and intact) Plan Plan of Care may dc home f/u 2 weeks Comment Review of Relevant I have reviewed the following items poli (where applicable) has been applied. Medications Current Medications Ondansetron HCl (Zofran) 4 mg PRN Q6HRS PRN IV NAUSEA/VOMITING; Start 04/23/18 at 07:00; Stop 04/23/18 at 23:00; Status DC Fentanyl Citrate (Fentanyl 2ml Vial) 25 mcg PRN Q5MIN PRN IV MILD PAIN; Start 04/23/18 at 07:00; Stop 04/23/18 at 23:00; Status DC Fentanyl Citrate (Fentanyl 2ml Vial) 50 mcg PRN Q5MIN PRN IV MODERATE TO SEVERE PAIN Last administered on 04/23/18at 17:36; Start 04/23/18 at 07:00; Stop 04/23/18 at 23:00; Status DC Morphine Sulfate (Morphine Sulfate) 1 mg PRN Q10MIN PRN IV SEVERE PAIN Last administered on 04/23/18at 18:07; Start 04/23/18 at 07:00; Stop 04/23/18 at 23:00 ; Status DC Ringer's Solution 1,000 ml @ 30 mls/hr Q24H IV Last administered on 04/23/18at 06:29; Start 04/23/18 at 07:00; Stop 04/23/18 at 18:59; Status DC Lidocaine HCl (Xylocaine-Mpf 1% Vial) 2 ml PRN 1X PRN ID PRIOR TO IV START; Start 04/23/18 at 07:00; Stop 04/23/18 at 23:00; Status DC Prochlorperazine Edisylate (Compazine) 5 mg PACU PRN PRN IV NAUSEA, MRX1; Start 04/23/18 at 07:00; Stop 04/23/18 at 23:00; Status DC Cefazolin Sodium/ Dextrose 50 ml @ 100 mls/hr 1X PREOP PRN IV PRIOR TO PROCEDURE Last administered on 04/23/18at 09:42; Start 04/23/18 at 06:00; Stop at 18:00; Status DC Bacitracin 00061 unit/Sodium Chloride 1,000 ml @ 1,000 mls/hr 1X ONCE IRR Last administered on 04/23/18at 09:46; Start 04/23/18 at 06:00; Stop 04/23/18 at 06:59; Status DC Bupivacaine HCl/ Epinephrine Bitart (Sensorcain-Mpf Epi 0.5%-1:515364) 30 ml 1X ONCE INJ Last administered on 04/23/18at 09:46; Start 04/23/18 at 06:00; Stop 04/23/18 at 06:01; Status DC Gelatin (Gelfoam Size 100) 1 each STK-MED ONCE .ROUTE Last administered on at 09:46; Start 04/23/18 at 05:52; Stop 04/23/18 at 06:53; Status DC Ketorolac Tromethamine (Toradol For Or Only) 60 mg STK-MED ONCE .ROUTE Last administered on 04/23/18at 09:46; Start 04/23/18 at 05:52; Stop 04/23/18 at 06:53 ; Status DC Thrombin 20,000 unit STK-MED ONCE TP Last administered on 04/23/18at 09:46; Start 04/23/18 at 05:52; Stop 04/23/18 at 06:54; Status DC Propofol 100 ml @ As Directed STK-MED ONCE IV ; Start 04/23/18 at 07:06; Stop 04/23/18 at 08:07; Status DC Glycopyrrolate (Robinul) 1 mg STK-MED ONCE .ROUTE ; Start 04/23/18 at 08:12; Stop 04/23/18 at 08:14; Status DC Rocuronium [place] (Zemuron) 50 mg STK-MED ONCE .ROUTE ; Start 04/23/18 at 08:12 ; Stop 04/23/18 at 08:14; Status DC Glycopyrrolate (Robinul) 1 mg STK-MED ONCE .ROUTE ; Start 04/23/18 at 08:13; Stop 04/23/18 at 08:14; Status DC Desflurane (Suprane) 90 ml STK-MED ONCE IH ; Start 04/23/18 at 08:14; Stop 04/23 at 08:16; Status DC Remifentanil HCl (Ultiva) 2,000 mg 1X ONCE IV ; Start 04/23/18 at 08:30; Stop 04/23/18 at 08:31; Status DC Phenylephrine HCl (Jhoan-Synephrine Inj) 10 mg STK-MED ONCE .ROUTE ; Start at 08:28; Stop 04/23/18 at 08:29; Status DC Phenylephrine HCl (Jhoan-Synephrine Inj) 10 mg STK-MED ONCE .ROUTE ; Start at 08:28; Stop 04/23/18 at 08:29; Status DC Dexamethasone Sodium Phosphate (Decadron) 20 mg STK-MED ONCE .ROUTE ; Start at 08:28; Stop 04/23/18 at 08:29; Status DC Ondansetron HCl (Zofran) 4 mg STK-MED ONCE .ROUTE ; Start 04/23/18 at 08:28; Stop 04/23/18 at 08:29; Status DC Ketorolac Tromethamine (Toradol For Or Only) 30 mg STK-MED ONCE INJ ; Start at 08:28; Stop 04/23/18 at 08:29; Status DC Ephedrine Sulfate (ePHEDrine PF IN SALINE SYRINGE) 50 mg STK-MED ONCE IV ; Start 04/23/18 at 09:11; Stop 04/23/18 at 09:12; Status DC Fentanyl Citrate (Fentanyl 2ml Vial) 100 mcg STK-MED ONCE .ROUTE ; Start at 09:51; Stop 04/23/18 at 09:52; Status DC Cefazolin Sodium (Ancef) 1 gm STK-MED ONCE .ROUTE ; Start 04/23/18 at 09:55; Stop 04/23/18 at 09:56; Status DC Cefazolin Sodium (Ancef) 1 gm STK-MED ONCE .ROUTE ; Start 04/23/18 at 09:55; Stop 04/23/18 at 09:56; Status DC Sertraline HCl (Zoloft) 50 mg HS PO Last administered on 04/25/18at 20:40; Start 04/23/18 at 21:00 Atorvastatin Calcium (Lipitor) 10 mg QHS PO Last administered on 04/25/18at 20: 40; Start 04/23/18 at 21:00 Acetaminophen (Tylenol) 650 mg PRN Q6HRS PRN PO FEVER; Start 04/23/18 at 10:45 Al Hydroxide/Mg Hydroxide (Mylanta Plus Xs) 30 ml PRN Q3HRS PRN PO HEARTBURN / GAS; Start 04/23/18 at 10:45 Calcium Carbonate/ Glycine (Tums) 500 mg PRN Q3HRS PRN PO INDIGESTION; Start at 10:45 Diphenhydramine HCl (Benadryl) 25 mg PRN Q6HRS PRN PO ITCHING; Start 04/23/18 at 10:45 Diphenhydramine HCl (Benadryl) 25 mg PRN Q6HRS PRN IV ITCHING; Start 04/23/18 at 10:45 Sodium Chloride (Normal Saline Flush) 3 ml QSHIFT PRN IV AFTER MEDS AND BLOOD DRAWS; Start 04/23/18 at 10:45 Potassium Chloride/Dextrose/ Sod Cl 1,000 ml @ 75 mls/hr [id number] IV Last administered on 04/24/18at 03:40; Start 04/23/18 at 10:36; Stop 04/24/18 at 21:03 ; Status DC Oxycodone/ Acetaminophen (Percocet 5/325) 1 tab PRN Q4HRS PRN PO MILD PAIN, 1ST CHOICE Last administered on 04/26/18at 08:02; Start 04/23/18 at 10:45 Oxycodone/ Acetaminophen (Percocet 5/325) 2 tab PRN Q4HRS PRN PO MODERATE PAIN , SEVERE PAIN Last administered on 04/25/18at 20:40; Start 04/23/18 at 10:45 Methocarbamol (Robaxin) 750 mg TID PO Last administered on 04/26/18at 11:24; Start 04/23/18 at 14:00 Docusate Sodium (Colace) 100 mg BID PO Last administered on 04/26/18at 08:02; Start 04/23/18 at 21:00 Magnesium Hydroxide (Milk Of Magnesia) 2,400 mg PRN Q12HR PRN PO CONSTIPATION; Start 04/23/18 at 10:45 Ondansetron HCl (Zofran) 4 mg PRN Q6HRS PRN IV NAUESA, 1ST CHOICE; Start at 10:45 Cefazolin Sodium 1 gm/Dextrose 50 ml @ 100 mls/hr Q8HRS IV ; Start 04/23/18 at 14:00; Stop 04/24/18 at 06:29; Status UNV Fentanyl Citrate (Fentanyl 2ml Vial) 50 mcg PRN Q2HR PRN IV SEVERE PAIN Last administered on 04/25/18at 11:28; Start 04/23/18 at 10:45 Fentanyl Citrate (Fentanyl 2ml Vial) 25 mcg PRN Q2HR PRN IV MODERATE PAIN; Start 04/23/18 at 10:45 Propofol 50 ml @ As Directed STK-MED ONCE IV ; Start 04/23/18 at 11:46; Stop at 11:47; Status DC Propofol 50 ml @ As Directed STK-MED ONCE IV ; Start 04/23/18 at 14:05; Stop at 14:06; Status DC Cefazolin Sodium (Ancef) 1 gm Q8H IVP Last administered on 04/24/18at 09:11; Start 04/23/18 at 18:00; Stop 04/24/18 at 10:01; Status DC Meperidine HCl (Demerol) 25 mg STK-MED ONCE .ROUTE ; Start 04/23/18 at 17:32; Stop 04/23/18 at 17:33; Status DC Meperidine HCl (Demerol) 25 mg 1X PACU PRN IV SHIVERING; Start 04/23/18 at 17: 30; Stop 04/23/18 at 23:00; Status DC Dexamethasone Sodium Phosphate (Decadron) 10 mg 1X ONCE IV Last administered on 04/23/18at 21:41; Start 04/23/18 at 22:00; Stop 04/23/18 at 22:01; Status DC Sodium Chloride 500 ml @ 500 mls/hr 1X ONCE IV Last administered on at 05:14; Start 04/24/18 at 05:15; Stop 04/24/18 at 06:14; Status DC Remifentanil HCl (Ultiva) 2 mg STK-MED ONCE IV ; Start 04/23/18 at 12:00; Stop 04/24/18 at 08:40; Status DC Dexamethasone Sodium Phosphate (Decadron) 4 mg Q6HRS IV Last administered on at 11:28; Start 04/24/18 at 12:00; Stop 04/25/18 at 12:00; Status DC Dexamethasone Sodium Phosphate (Decadron) 4 mg Q6HRS IV Last administered on at 11:24; Start 04/25/18 at 18:00 Polyethylene Glycol (miraLAX PACKET) 17 gm DAILY PO Last administered on at 08:01; Start 04/25/18 at 18:00 Active Scripts Active Reported Robaxin-750 (Methocarbamol) 750 Mg Tablet Tab PO TID Percocet 5-325 Mg Tablet (Oxycodone/Acetaminophen) 1 Each Tablet 1-2 Tab PO Q4- 6HRS Medrol (Methylprednisolone) 4 Mg Tab.ds.pk 1 Pkg PO UD 7 Days Zoloft (Sertraline Hcl) 50 Mg Tablet 1 Tab PO HS Pravastatin Sodium 40 Mg Tablet 1 Tab PO QHS Vitals/I & O Vital Sign - Last 24 Hours 04/25/18 04/25/18 04/25/18 04/25/18 14:14 17:00 18:01 20:40 Temp 97.9 97.9 97.9 97.9 Pulse 88 86 Resp 20 20 20 B/P (MAP) 100/57 (71) 134/51 (78) Pulse Ox 97 95 O2 Delivery Room Air Room Air Room Air 04/26/18 04/26/18 04/26/18 05:46 09:00 11:28 Temp 98.0 97.9 98.0 97.9 Pulse 82 73 Resp 16 16 20 B/P (MAP) 114/58 (76) 114/64 (81) Pulse Ox 96 97 O2 Delivery Room Air Room Air Room Air Intake and Output 04/25/18 04/25/18 04/26/18 15:00 23:00 07:00 Intake Total 200 ml Output Total 0 ml Balance 200 ml 0 ml HOLLY ORDOÑEZ MD Apr 26, 2018 11:44
--- NOTE | 2018-04-27 09:10 | PATHOLOGY ---
[facility] Accession Number: [id number] . 01 Material submitted: . LUMBAR DECOMPRESSION AND DISC . 01 Clinical history: . Lumbar spondylolisthesis, stenosis and neurogenic claudication, radiculopathy . 02 Diagnosis: Segments of fibrocartilaginous, fibroadipose, synovial, and skeletal muscle tissue and bone, lumbar decompression and disc: - Degenerative changes of fibrocartilaginous tissue. LBQ/04/26/2018 . 02 Comment: There is no evidence of an acute inflammatory process or malignancy. (JPM/db; 04/26/18) . 02 Electronically signed: . Jorge Jackson MD, Pathologist NPI- [id number] . 01 Gross description: . Received in formalin labeled "Louise Box, lumbar decompression and disc," are several pieces of glistening, fibrous tissue measuring 7.8 x 4.6 x 2.0 cm in aggregate dimensions, containing small fragments of possible bone. The tissue submitted representatively in cassette A1, following decalcification. (TSD; 04/24/2018) TOB/TOB . 02 Pathologist provided ICD-10: M51.36 . 02 CPT . 622142, [id number] Performed at: 01 [facility] [address], [place] [id number] MD Eddie Watson MD Phone: [phone] Performed at: 02 [facility] [address], [place] [id number] MD Jorge Jackson MD Phone: [phone]
== END 2018-04-26 12:45 | disposition home or self-care (01) | DRG 460 ==
LOC: OPSVCIP 05:55 → 4 SOUTHEST 17:51
PROVIDERS: ADMIT Neurological Surgery; ATTEND Neurological Surgery
PROC: 0SB20ZZ Excision of Lumbar Vertebral Disc, Open Approach (ICD-10-PCS; 2018-04-23)
PROC: 00NY0ZZ Release Lumbar Spinal Cord, Open Approach (ICD-10-PCS; 2018-04-23)
PROC: 4A11X4G Monitoring of Peripheral Nervous Electrical Activity, Intraoperative, External Approach (ICD-10-PCS; 2018-04-23)
PROC: 0SG00AJ Fusion of Lumbar Vertebral Joint with Interbody Fusion Device, Posterior Approach, Anterior Column, Open Approach (ICD-10-PCS; principal; 2018-04-23 08:30)
DX: M48.062 Spinal stenosis, lumbar region with neurogenic claudication (principal); M43.16 Spondylolisthesis, lumbar region; M19.90 Unspecified osteoarthritis, unspecified site; Z90.49 Acquired absence of other specified parts of digestive tract; Z80.9 Family history of malignant neoplasm, unspecified
CPT/HCPCS: 36415; 72100; 72131; 76000; 86850; 86900; 86901; 88304; 88311; A7015; C1713; J0690; J1100; J1885; J2270; J2405; J2704; J3010; J3490; J7030; J7040; J7120; 97110; 97116; 97530

== ENCOUNTER → 2018-07-11 | Outpatient (CLI) | payer OTHER ==
[~2018-07-11] MED LIST changes: -GELATIN SPONGE SIZE 100. ONE; -KETOROLAC 60 MG/2 ML INJ FOR OR. ONE; +METH-38 PO; +METH4TAB2 PO; +OXYC-323 PO; -THROMBIN TOPICAL 20,000 UNIT SPRAY.SYRN KIT TP ONE
--- NOTE | 2018-07-11 17:27 | KCIC ---
LUMBAR SPINE 2-3V History: Lumbar fusion 04/23/2018 Comparison: April 25, 2018 Findings: 3 views of the lumbar spine are submitted. There is unchanged appearance of intact bilateral pedicle screws at L4 and L5 attached to vertical rods. There is again L4-5 interbody graft which is unchanged in location. Lumbar vertebral body stature and AP alignment are similar. There is [id number] superior lumbar levoscoliosis. There has been cholecystectomy. Impression: 1. There is intact posterolateral fusion hardware L4-5, unchanged position of L4-5 interbody graft. There is lumbar levoscoliosis. Electronically signed by: Wellington Yancey MD (07/11/2018 5:23 PM) [id number]
== END | disposition home or self-care (01) ==
LOC: KCIC 10:44
PROVIDERS: ATTEND Neurological Surgery
DX: M41.86 Other forms of scoliosis, lumbar region (principal); Z98.890 Other specified postprocedural states
CPT/HCPCS: 72100

== ENCOUNTER → 2018-11-05 | Outpatient (CLI) | payer OTHER ==
[~2018-11-05] MED LIST changes: -OXYC-323 PO; +OXYC1TAB15 PO
--- NOTE | 2018-11-05 15:49 | KCIC ---
Bilateral digital screening mammograms: Reason for examination: Routine screening. Comparison is made to previous studies dated 10/25/2017 and 10/05/2016. Interpretation was made with the benefit of CAD. The skin and nipples show no abnormalities. No abnormal axillary lymph nodes are seen. The breast parenchyma shows scattered fibroglandular density. (Breast density: Category B.) There continues to be a small circumscribed nodule with calcification at the 12:00 B position of the right breast which is unchanged. There are also small parenchymal densities present in the left breast seen best on CC view which are unchanged. There are no new dominant masses, suspicious calcifications or architectural distortions. Impression: No evidence of malignancy. Recommend routine screening. BI-RADS Category 2: Benign. "Our facility is accredited by the [employer] Mammography Program." This patient's information has been entered into a reminder system for the patient to be notified with the results of her examination and a target date for the next mammogram. Electronically signed by: Pau Bhatia MD (11/05/2018 3:46 PM) [id number]
== END | disposition home or self-care (01) ==
LOC: KCIC MAMMO 11:11
DX: Z12.31 Encounter for screening mammogram for malignant neoplasm of breast (principal)
CPT/HCPCS: 77067

== ENCOUNTER → 2019-11-11 | Outpatient (CLI) | payer MEDICARE, OTHER ==
--- NOTE | 2019-11-11 15:41 | KCIC ---
Bilateral digital screening mammograms: Reason for examination: Routine screening. Comparison is made to previous studies dated back to 10/05/2016. Interpretation was made with the benefit of CAD. The skin and nipples show no abnormalities. No abnormal axillary lymph nodes are seen. The breast parenchyma shows scattered fibroglandular density. 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 There continues to be a small nodular density anterior medially in the left breast seen best on CC view which is stable. There are no new dominant masses, suspicious calcifications or architectural distortions. Impression: No evidence of malignancy. Recommend routine screening. BI-RADS category 2: Benign "Our facility is accredited by the [employer]ography [employer]." This patient's information has been entered into a reminder system for the patient to be notified with the results of her examination and a target date for the next mammogram. Electronically signed by: Pau Bhatia MD (11/11/2019 3:38 PM) [id number]
== END ==
LOC: KCIC MAMMO 10:20
PROVIDERS: ATTEND Family Medicine
DX: Z12.31 Encounter for screening mammogram for malignant neoplasm of breast (principal)
CPT/HCPCS: 77067

== ENCOUNTER → 2020-10-12 | Outpatient (CLI) | payer MEDICARE ==
--- NOTE | 2020-10-12 16:11 | KCIC ---
INDICATION: Osteoporosis screening. Postmenopausal screening COMPARISON: None. TECHNIQUE: Bone densitometry was performed through the forearm and proximal femur. FINDINGS: Forearm: BMD: 0.62 T-Score: 1.1 Proximal Femur: BMD: 0.9 T-Score: -0.3 IMPRESSION: 1. Forearm falls within the normal range. 2. Proximal femur falls within the normal range. Electronically signed by: Gael Bailey MD (10/12/2020 4:09 PM) [id number]
== END ==
LOC: KCIC DEXA 11:12
PROVIDERS: ATTEND Family Medicine
DX: N95.8 Other specified menopausal and perimenopausal disorders (principal)
CPT/HCPCS: 77080; 77081

== ENCOUNTER → 2021-01-18 | Outpatient (CLI) | payer MEDICARE ==
--- NOTE | 2021-01-18 10:29 | KCIC ---
Bilateral digital screening mammograms: Reason for examination: Routine screening. Comparison is made to previous studies dated back to 09/26/2014. Interpretation was made with the benefit of CAD. The skin and nipples show no abnormalities. No abnormal axillary lymph nodes are seen. The breast par enchyma shows scattered fibroglandular density. (Breast density: Category B.) There is a calcifying d egenerating fibroadenoma at the 12:00 B position of the right breast. There are no new dominant meera s, suspicious calcifications or architectural distortions. Impression: No evidence of malignancy. Recommend routine screening. BI-RADS Category 2: Benign. "Our facility is accredited by the [employer]ammography [employer]." This patient's information has been entered into a reminder system for the patient to be notified wit h the results of her examination and a target date for the next mammogram. Electronically signed by: Pau Bhatia MD (01/18/2021 10:26 AM) [email or web address]
== END ==
LOC: KCIC MAMMO 09:40
PROVIDERS: ATTEND Family Medicine
DX: Z12.31 Encounter for screening mammogram for malignant neoplasm of breast (principal)
CPT/HCPCS: 77067